=== PATIENT | female | born 1945 | race Caucasian/White ===

== ENCOUNTER 2016-08-30 03:14 | Inpatient (IN) | payer MEDICARE, MEDICAID ==
[2016-08-30] MEDS ORDERED: Sodium Chloride 0.9% 1,000 ML IV ONE (03:56)
--- NOTE | 2016-08-30 03:58 | ED Physician Chart ---
Chief Complaint/HPI - Patient Information Date Seen:: 08/30/16 Time Seen:: 03:30 Chief Complaint:: vomiting History of Present Illness:: patient vomited once at SNF and sent here for evaluation. Allergies:: Allergies Allergy/AdvReac Type Severity Reaction Status Date / Time ampicillin Allergy Verified 08/30/16 03:29 metronidazole Allergy Verified 08/30/16 03:29 Penicillins Allergy Verified 08/30/16 03:29 Sulfa (Sulfonamide Allergy Verified 08/30/16 03:29 Antibiotics) Vitals:: Vital Signs - 8 hr 08/30/16 03:20 Temp 97.9 F HR 86 RR 18 BP 154/71 O2 Sat % 97 Historian:: Patient Review:: Nurse's Note Reviewed, Transfer documents Reviewed Review of Systems - Review of Systems General/Constitutional: No fever Skin: No skin lesions Head: No headache Eyes: No loss of vision ENT: No earache Neck: No neck pain Cardio Vascular: No chest pain Pulmonary: No SOB GI: Vomiting, No diarrhea G/U: No dysuria Musculoskeletal: No bone or joint pain Endocrine: No polyuria Psychiatric: Prior psych history Hematopoietic: No bruising Allergic/Immuno: No urticaria Neurological: No syncope, No focal symptoms Past Medical History - Past Medical History Past Medical History: HTN, Asthma/COPD, Dyslipidemia, Thyroid disorder, Other ( hypercholesterolemia; hypothyroidism; anemia; schizophrenia; anxiety) Family History: Other (unavailable) Social History: Care Facility Surgical History: other Psychiatricy History: Schizophrenia, Other (anxiety) Medication: Reviewed (anxiety) Family Medical History - Family Member Mother History Unknown: Yes Ethnicity: Non- Physical Exam - Physical Examination General/Constitutional: Well-developed, well-nourished, Alert Other Gen/Cons comments:: angrly, profane language Head: Atraumatic Eyes: Lids, conjuctiva normal Skin: Nl inspection ENMT: External ears, nose nl Other ENMT comments:: edentulous Neck: No nuchal rigidity Respiratory: Nl effort/Exclusion, Clear to Auscultation Cardio Vascular: RRR GI: No tenderness/rebounding/guarding, No organomegaly, No hernia, Normal BS's, Nondistended, No mass/bruits, No McBurney tenderness : No CVA tenderness Extremities: Normal digits & nails Neuro/Psych: No focal deficits Misc: Normal back Assessment - Assessment General Assessment: at 0610 patient's abdomen was soft without guarding; bowel sounds present. Per Dr. Dwyer patient had coffee-grouind emesis ED Septic Shock - . Is Septic Shock (SBP<90, OR Lactate>4 mmol\L) present?: No - <6hrs of presentation: Vital Signs: Vital Signs - 8 hr 08/30/16 03:20 Temp 97.9 F HR 86 RR 18 BP 154/71 O2 Sat % 97 Reassessment (Disposition) - Reassessment Reassessment:: no vomiting while in the ED Reassessment Condition:: Improved - Diagnosis Diagnosis:: upper GI bleeding - Patient Disposition Spoke to:: Cheng Dwyer Admitting Medical Physician:: Cheng Dwyer Condition at Disposition:: Stable, Improved
[2016-08-30 06:29] LABS: % BASOPHILS 0.7 % (0.0-2.0); % EOSINOPHILS 1.3 % (0.0-5.0); % LYMPHOCYTES 39.3 % (20.0-50.0); % MONOCYTES 8.9 % (2.0-10.0); % NEUTROPHILS 49.8 % (40.0-80.0); MEAN CELL VOLUME 87.9 fl (81-100); MEAN CORPUSCULAR HEMOGLOBIN 29.5 pg (27.0-31.0); MEAN CORPUSCULAR HGB CONC 33.6 pg (28.0-36.0); MEAN PLATELET VOLUME 8.8 fl; NEUTROPHILE ABSOLUTE 1.8 Th/cmm (1.8-8.0); RED BLOOD COUNT 3.86 Mil/cmm (3.80-5.20); RED CELL DISTRIBUTION WIDTH 14.9 % (11.5-20.0); WHITE BLOOD COUNT 3.4 Th/cmm (4.8-10.8)
[2016-08-30 06:32] LABS: HEMATOCRIT 33.9 % (35.0-45.0); HEMOGLOBIN 11.4 gm/dL (11.7-16.1)
[2016-08-30 06:33] LABS: PLATELET COUNT 174 Th/cmm (150-400)
[2016-08-30 06:49] LABS: ANION GAP 7.1 (7.0-16.0); BUN - UREA NITROGEN 39 mg/dL (7-25); BUN/CREATININE RATIO 32.5; CALCIUM SERUM 9.9 mg/dL (8.6-10.3); CARBON DIOXIDE 24.8 mEq/L (21.0-31.0); CHLORIDE 107 mEq/L (98-107); CREATININE - SERUM 1.2 mg/dL (0.6-1.2); GLUCOSE 74 mg/dL (70-105); LIPASE 17 U/L (11-82); POTASSIUM SERUM 4.9 mEq/L (3.5-5.1); SODIUM SERUM 134 mEq/L (136-145)
[2016-08-30 07:15] LABS: PROTHROMBIN TIME (TEST) 9.9 SECONDS (9.5-11.5)
--- NOTE | 2016-08-30 20:58 | History & Physical ---
HISTORY OF PRESENT ILLNESS: This patient is well known to me. [facility]. The patient vomited coffee ground emesis, so she was admitted. The patient is known to have history of psychosis, history of anemia in the past, history of GI bleeding in the past, history of COPD, history of hypertension, history of thyroid disorder, history of hypothyroidism and anxiety. The patient was seen in the ER and was admitted. REVIEW OF SYSTEMS: Difficult to obtain. PAST MEDICAL HISTORY: As enumerated above, history of hypertension, COPD, hyperlipidemia, thyroid disorder, high cholesterol, hypothyroidism, anemia, schizophrenia and anxiety. PHYSICAL EXAMINATION: GENERAL: The patient is alert, oriented, elderly female. VITAL SIGNS: As noted. HEAD: Normal. ENT: Normal. LUNGS: Bilaterally clear. CARDIOVASCULAR SYSTEM: S1, S2 heard. ABDOMEN: Soft. Bowel sounds are heard. CENTRAL NERVOUS SYSTEM: Grossly normal. DIAGNOSES: Upper gastrointestinal bleeding. rule out anemia, history of hypertension, history of chronic obstructive pulmonary disease, history of asthma, history of psychosis. PLAN: The patient is being admitted. I will go ahead and call the GI doctor for a GI workup and also psych doctor and I will follow the patient. JOB# [id number]
[2016-08-30] MEDS ORDERED: D5-0.45NS 1,000 ML IV ONE (21:20)
--- NOTE | 2016-08-30 21:30 | Admit Criteria Form ---
Admit Criteria Forms - Admit Criteria Diagnosis: GASTROINTESTINAL BLEEDING, UPPER Clinical Indications for Admission to Inpatient Care ( Place 'X' for any and all applicable criteria): Admission is indicated for ANY ONE of the following(1)(2)(3)(4)(5)(6): [ ]I. Active bleeding (eg, fresh voluminous blood in emesis or nasogastric aspirate) [ ]II. Associated conditions requiring hospitalization (eg, perforation, obstruction from ulcer) [ X]III. Inpatient admission required rather than observation care (Also use Gastrointestinal Bleeding, Upper: Observation Care as appropriate) because of ANY ONE of the following: [ ]a) Hemodynamic instability that is severe or persistent [ ]b) Anemia requiring inpatient admission as indicated by ALL of the following: [ ]1) Presence of significant clinical finding indicated by ANY ONE of the following: [ ]A. Tachycardia for age [ ]B. Orthostatic vital sign changes [ ]C. Cognitive impairment [ ]D. Heart failure [ ]E. Chest pain [ ]F. Exertional dyspnea [ ]G. Other findings suggesting inadequate perfusion (eg, peripheral or myocardial ischemia, end organ dysfunction) [ ]2) Initial (eg, emergency department, observation care) treatment with transfusion or volume replacement is judged inappropriate (due to severity of the finding) or has been ineffective [ ]c) Severe pain requiring acute inpatient management [ ]d) High-risk low platelet count [ ]e) IV fluid to replace significant ongoing losses (greater than 3 L/m2 per day) [ ]f) Immediate inpatient surgery [X ]g) Other condition, treatment or monitoring requiring inpatient admission [ ]IV. Severe liver disease (eg, cirrhosis) [ ]V. Significant active comorbid disease [ ]. Anticoagulation therapy [ ]VII. High-risk endoscopic features (arterial bleeding, adherent clot, nonbleeding visible vessel, varices, flat red spots, ulcer size greater than 2 cm, or portal hypertensive gastropathy) [ ]VIII. Previous aortic graft placement or known aortic aneurysm [ ]IX. Coagulopathy [ ]X. Syncope Extended stay beyond goal length of stay may be needed for(1)(2): [ ]a) Emergency surgery [ ]b) Varices [ ]c) Coagulation abnormalities [ ]d) Recurrent, obscure, or persistent bleeding or continued Hemodynamic instability [ ]e) Associated conditions requiring surgery (eg, perforated gastric ulcer, gastric outlet obstruction) [ ]f) Active comorbidities (eg, renal insufficiency, heart failure, pre- existing liver disease) The original [email or web address] content created by [facility] [email or web address] has been revised. The portions of the content which have been revised are identified through the use of italic text or in bold, and [facility] has neither reviewed nor approved the modified material. All other unmodified content is copyright [facility] [employer]. Please see references footnoted in the original [facility] [email or web address] edition 2016
[2016-08-30] MEDS ORDERED: Morphine Sulfate 2 mg/mL 1mL Syr IVP PRN ×2 (21:35→21:36)
[2016-08-31] MEDS ORDERED: Diatrizoate Meglumine/Diatri 30 mL Sol PO ONE (09:00)
--- NOTE | 2016-08-31 10:04 | General Progress Note ---
Objective - Results Result Diagrams: 08/30/16 06:15 08/30/16 06:15 Recent Labs: Laboratory Last Values WBC 3.4 Th/cmm (4.8-10.8) L 08/30/16 06:15 RBC 3.86 Mil/cmm (3.80-5.20) 08/30/16 06:15 Hgb 11.4 gm/dL (11.7-16.1) L D 08/30/16 06:15 Hct 33.9 % (35.0-45.0) L D 08/30/16 06:15 MCV 87.9 fl (81-100) 08/30/16 06:15 MCH 29.5 pg (27.0-31.0) 08/30/16 06:15 MCHC Differential 33.6 pg (28.0-36.0) 08/30/16 06:15 RDW 14.9 % (11.5-20.0) 08/30/16 06:15 Plt Count 174 Th/cmm (150-400) D 08/30/16 06:15 MPV 8.8 fl 08/30/16 06:15 Neutrophils % 49.8 % (40.0-80.0) 08/30/16 06:15 Lymphocytes % 39.3 % (20.0-50.0) 08/30/16 06:15 Monocytes % 8.9 % (2.0-10.0) 08/30/16 06:15 Eosinophils % 1.3 % (0.0-5.0) 08/30/16 06:15 Basophils % 0.7 % (0.0-2.0) 08/30/16 06:15 PT 9.9 SECONDS (9.5-11.5) 08/30/16 06:15 INR 1.00 (0.5-1.4) 08/30/16 06:15 PTT (Actin FS) 28.8 SECONDS (26.0-38.0) 08/30/16 06:15 Sodium 134 mEq/L (136-145) L 08/30/16 06:15 Potassium 4.9 mEq/L (3.5-5.1) 08/30/16 06:15 Chloride 107 mEq/L (98-107) 08/30/16 06:15 Carbon Dioxide 24.8 mEq/L (21.0-31.0) 08/30/16 06:15 Anion Gap 7.1 (7.0-16.0) 08/30/16 06:15 BUN 39 mg/dL (7-25) H 08/30/16 06:15 Creatinine 1.2 mg/dL (0.6-1.2) 08/30/16 06:15 Est GFR ( Amer) TNP 08/30/16 06:15 Est GFR (Non-Af Amer) TNP 08/30/16 06:15 BUN/Creatinine Ratio 32.5 08/30/16 06:15 Glucose 74 mg/dL (70-105) 08/30/16 06:15 Calcium 9.9 mg/dL (8.6-10.3) 08/30/16 06:15 Lipase 17 U/L (11-82) 08/30/16 06:15 - Physical Exam Vitals and I&O: Vital Signs Temp 97.7 F 08/31/16 08:26 Pulse 64 08/31/16 08:26 Resp 18 08/31/16 08:26 BP 147/78 08/31/16 08:26 Pulse Ox 95 08/31/16 08:26 Intake & Output 08/30/16 08/31/16 08/31/16 18:59 06:59 18:59 Intake Total 240 Balance 240 Intake: Oral 240 Other: # Voids 2 # Bowel Movements 0 Active Medications: Current Medications Dextrose/Sodium Chloride (D5-0.45ns) 1,000 mls @ 50 mls/hr IV .Q20H ONE Stop: 08/31/16 17:19 Morphine Sulfate (Morphine) 1 mg IVP Q4HR PRN PRN Reason: Moderate Pain Stop: 10/29/16 21:34 Morphine Sulfate (Morphine) 2 mg IVP Q4HR PRN PRN Reason: Severe Pain Stop: 10/29/16 21:35 Assessment/Plan - Problem List Patient Problems: All Active Problems Skin ulcer (Acute) L98.311
--- NOTE | 2016-09-01 08:42 | General Progress Note ---
Subjective - Review of Systems Service Date: 09/01/16 Objective - Results Result Diagrams: 08/30/16 06:15 08/30/16 06:15 Recent Labs: Laboratory Last Values WBC 3.4 Th/cmm (4.8-10.8) L 08/30/16 06:15 RBC 3.86 Mil/cmm (3.80-5.20) 08/30/16 06:15 Hgb 11.4 gm/dL (11.7-16.1) L D 08/30/16 06:15 Hct 33.9 % (35.0-45.0) L D 08/30/16 06:15 MCV 87.9 fl (81-100) 08/30/16 06:15 MCH 29.5 pg (27.0-31.0) 08/30/16 06:15 MCHC Differential 33.6 pg (28.0-36.0) 08/30/16 06:15 RDW 14.9 % (11.5-20.0) 08/30/16 06:15 Plt Count 174 Th/cmm (150-400) D 08/30/16 06:15 MPV 8.8 fl 08/30/16 06:15 Neutrophils % 49.8 % (40.0-80.0) 08/30/16 06:15 Lymphocytes % 39.3 % (20.0-50.0) 08/30/16 06:15 Monocytes % 8.9 % (2.0-10.0) 08/30/16 06:15 Eosinophils % 1.3 % (0.0-5.0) 08/30/16 06:15 Basophils % 0.7 % (0.0-2.0) 08/30/16 06:15 PT 9.9 SECONDS (9.5-11.5) 08/30/16 06:15 INR 1.00 (0.5-1.4) 08/30/16 06:15 PTT (Actin FS) 28.8 SECONDS (26.0-38.0) 08/30/16 06:15 Sodium 134 mEq/L (136-145) L 08/30/16 06:15 Potassium 4.9 mEq/L (3.5-5.1) 08/30/16 06:15 Chloride 107 mEq/L (98-107) 08/30/16 06:15 Carbon Dioxide 24.8 mEq/L (21.0-31.0) 08/30/16 06:15 Anion Gap 7.1 (7.0-16.0) 08/30/16 06:15 BUN 39 mg/dL (7-25) H 08/30/16 06:15 Creatinine 1.2 mg/dL (0.6-1.2) 08/30/16 06:15 Est GFR ( Amer) TNP 08/30/16 06:15 Est GFR (Non-Af Amer) TNP 08/30/16 06:15 BUN/Creatinine Ratio 32.5 08/30/16 06:15 Glucose 74 mg/dL (70-105) 08/30/16 06:15 Calcium 9.9 mg/dL (8.6-10.3) 08/30/16 06:15 Lipase 17 U/L (11-82) 08/30/16 06:15 - Physical Exam Vitals and I&O: Vital Signs Temp 97.6 F 09/01/16 07:49 Pulse 79 09/01/16 07:49 Resp 18 09/01/16 07:49 BP 150/77 09/01/16 07:49 Pulse Ox 97 09/01/16 07:49 Intake & Output 08/31/16 09/01/16 09/01/16 18:59 06:59 18:59 Intake Total 1000 200 Balance 1000 200 Intake: Oral 1000 200 Other: # Voids 3 2 Active Medications: Current Medications Morphine Sulfate (Morphine) 1 mg IVP Q4HR PRN PRN Reason: Moderate Pain Stop: 10/29/16 21:34 Morphine Sulfate (Morphine) 2 mg IVP Q4HR PRN PRN Reason: Severe Pain Stop: 10/29/16 21:35 Pantoprazole Sodium (Protonix) 40 mg IVP BID [facility] Stop: 10/31/16 08:59 General: No acute distress, Mild distress, Moderate distress HEENT: Atraumatic Neck: Supple Cardiovascular: Regular rate Lungs: Clear to auscultation Abdomen: Bowel sounds Extremities: Clubbing Neurological: Normal gait Assessment/Plan - Problem List Patient Problems: All Active Problems Skin ulcer (Acute) L98.499 - Plan Plan: cpm
--- NOTE | 2016-09-01 10:13 | Diagnostic Imaging Report ---
CT scan abdomen and pelvis without intravenous contrast HISTORY: Nausea/vomiting Total DLP equals 375 CTDI equals 7.5 Axial sections were obtained from the xiphoid process down to the pubic symphysis. The liver exhibits a homogeneous parenchyma. No focal lesions. The spleen appears normal. There is a large retrocardiac hiatal hernia with the gastric fundus above the diaphragm. Severe diffuse extensive athero-Scottie vascular calcification noted through the abdominal aorta and major branches. No focal renal lesions. Focal cortical irregularity noted along the lateral margin of the left kidney suggesting scarring. No hydronephrosis. The exam of the pelvis demonstrates preservation of normal fat planes. Evaluation is limited due to artifact related to left hip arthroplasty. There is mild to moderately dilated stool-filled large bowel along with a markedly distended air-filled rectum. Findings suggest changes of constipation. IMPRESSION: 1. Large retrocardiac hiatal hernia with the gastric fundus above the diaphragm 2. Dilated stool-filled large bowel suggesting changes of constipation 3. Extensive atherosclerotic vascular changes
--- NOTE | 2016-09-01 22:53 | Consultation ---
REFERRING PHYSICIAN: Dr. Dwyer. REASON FOR CONSULTATION: Nausea, vomiting, possible coffee-ground emesis. HISTORY OF PRESENT ILLNESS: This is a 70-year-old female who was brought into the hospital because of possible coffee-ground emesis, noted that a [facility] patient is, otherwise, a poor historian, unable to give any meaningful history. PAST MEDICAL HISTORY: Psychosis, anemia, COPD, hypertension, thyroid disorder, anxiety. PAST SURGICAL HISTORY: None to abdomen____. FAMILY HISTORY: Noncontributory. SOCIAL HISTORY: Resident of skilled facility. ALLERGIES: AMPICILLIN, FLAGYL, PENICILLIN AND SULFA. CURRENT MEDICATIONS: Morphine. REVIEW OF SYSTEMS: Ten-point review of systems was unobtainable. PHYSICAL EXAMINATION: VITAL SIGNS: Temperature 97.6, breathing 18, pulse of 79, blood pressure 150/77, satting 97%. GENERAL: In no apparent distress. EYES: Anicteric, normal conjunctivae. HEENT: Normocephalic, atraumatic. Moist mucous membranes. NECK: Soft, supple. CHEST: Clear effort. CARDIOVASCULAR: Regular rate and rhythm. ABDOMEN: Soft, nontender, nondistended. SKIN: Warm, dry. EXTREMITIES: Revealed no cyanosis. PSYCHOLOGIC: Alert and oriented x3. LABORATORY DATA: Show a white count of 3.4, hemoglobin 11.4____, platelets of 174. INR is 1. Lipase is ____. IMPRESSION: This is a 70-year-old female with nausea, vomiting, possible coffee-ground emesis, has mild anemia ____ GI bleeding at this time. PLAN: 1. Consider EGD. 2. Provide the patient with Protonix. 3. Consider CT abdomen and pelvis. 4. Check LFTs. Thank you for allowing me to participate. Please call me if any questions. JOB# [id number]
[2016-09-02] MEDS: D5-0.45NS 1,000 ML IV SCH ×2 (12:25→12:26)
--- NOTE | 2016-09-02 15:05 | General Progress Note ---
Objective - Results Result Diagrams: 08/30/16 06:15 08/30/16 06:15 Recent Labs: Laboratory Last Values WBC 3.4 Th/cmm (4.8-10.8) L 08/30/16 06:15 RBC 3.86 Mil/cmm (3.80-5.20) 08/30/16 06:15 Hgb 11.4 gm/dL (11.7-16.1) L D 08/30/16 06:15 Hct 33.9 % (35.0-45.0) L D 08/30/16 06:15 MCV 87.9 fl (81-100) 08/30/16 06:15 MCH 29.5 pg (27.0-31.0) 08/30/16 06:15 MCHC Differential 33.6 pg (28.0-36.0) 08/30/16 06:15 RDW 14.9 % (11.5-20.0) 08/30/16 06:15 Plt Count 174 Th/cmm (150-400) D 08/30/16 06:15 MPV 8.8 fl 08/30/16 06:15 Neutrophils % 49.8 % (40.0-80.0) 08/30/16 06:15 Lymphocytes % 39.3 % (20.0-50.0) 08/30/16 06:15 Monocytes % 8.9 % (2.0-10.0) 08/30/16 06:15 Eosinophils % 1.3 % (0.0-5.0) 08/30/16 06:15 Basophils % 0.7 % (0.0-2.0) 08/30/16 06:15 PT 9.9 SECONDS (9.5-11.5) 08/30/16 06:15 INR 1.00 (0.5-1.4) 08/30/16 06:15 PTT (Actin FS) 28.8 SECONDS (26.0-38.0) 08/30/16 06:15 Sodium 134 mEq/L (136-145) L 08/30/16 06:15 Potassium 4.9 mEq/L (3.5-5.1) 08/30/16 06:15 Chloride 107 mEq/L (98-107) 08/30/16 06:15 Carbon Dioxide 24.8 mEq/L (21.0-31.0) 08/30/16 06:15 Anion Gap 7.1 (7.0-16.0) 08/30/16 06:15 BUN 39 mg/dL (7-25) H 08/30/16 06:15 Creatinine 1.2 mg/dL (0.6-1.2) 08/30/16 06:15 Est GFR ( Amer) TNP 08/30/16 06:15 Est GFR (Non-Af Amer) TNP 08/30/16 06:15 BUN/Creatinine Ratio 32.5 08/30/16 06:15 Glucose 74 mg/dL (70-105) 08/30/16 06:15 Calcium 9.9 mg/dL (8.6-10.3) 08/30/16 06:15 Lipase 17 U/L (11-82) 08/30/16 06:15 - Physical Exam Vitals and I&O: Vital Signs Temp 97.4 F 09/02/16 04:00 Pulse 89 09/02/16 04:00 Resp 19 09/02/16 04:00 BP 131/78 09/02/16 04:00 Pulse Ox 96 09/02/16 04:00 Intake & Output 09/01/16 09/02/16 09/02/16 18:59 06:59 18:59 Other: # Voids 2 2 Active Medications: Current Medications Dextrose/Sodium Chloride (D5-0.45ns) 1,000 mls @ 75 mls/hr IV .[id number] [facility] Stop: 10/31/16 22:59 Last Admin: 09/02/16 12:26 Dose: Not Given Morphine Sulfate (Morphine) 1 mg IVP Q4HR PRN PRN Reason: Moderate Pain Stop: 10/29/16 21:34 Last Admin: 09/01/16 12:51 Dose: 1 mg Morphine Sulfate (Morphine) 2 mg IVP Q4HR PRN PRN Reason: Severe Pain Stop: 10/29/16 21:35 Pantoprazole Sodium (Protonix) 40 mg IVP BID [facility] Stop: 10/31/16 08:59 Last Admin: 09/02/16 12:26 Dose: Not Given Assessment/Plan - Problem List Patient Problems: All Active Problems Skin ulcer (Acute) L98.499 - Plan Plan: cpm
--- NOTE | 2016-09-03 09:07 | General Progress Note ---
Objective - Results Result Diagrams: 08/30/16 06:15 08/30/16 06:15 Recent Labs: Laboratory Last Values WBC 3.4 Th/cmm (4.8-10.8) L 08/30/16 06:15 RBC 3.86 Mil/cmm (3.80-5.20) 08/30/16 06:15 Hgb 11.4 gm/dL (11.7-16.1) L D 08/30/16 06:15 Hct 33.9 % (35.0-45.0) L D 08/30/16 06:15 MCV 87.9 fl (81-100) 08/30/16 06:15 MCH 29.5 pg (27.0-31.0) 08/30/16 06:15 MCHC Differential 33.6 pg (28.0-36.0) 08/30/16 06:15 RDW 14.9 % (11.5-20.0) 08/30/16 06:15 Plt Count 174 Th/cmm (150-400) D 08/30/16 06:15 MPV 8.8 fl 08/30/16 06:15 Neutrophils % 49.8 % (40.0-80.0) 08/30/16 06:15 Lymphocytes % 39.3 % (20.0-50.0) 08/30/16 06:15 Monocytes % 8.9 % (2.0-10.0) 08/30/16 06:15 Eosinophils % 1.3 % (0.0-5.0) 08/30/16 06:15 Basophils % 0.7 % (0.0-2.0) 08/30/16 06:15 PT 9.9 SECONDS (9.5-11.5) 08/30/16 06:15 INR 1.00 (0.5-1.4) 08/30/16 06:15 PTT (Actin FS) 28.8 SECONDS (26.0-38.0) 08/30/16 06:15 Sodium 134 mEq/L (136-145) L 08/30/16 06:15 Potassium 4.9 mEq/L (3.5-5.1) 08/30/16 06:15 Chloride 107 mEq/L (98-107) 08/30/16 06:15 Carbon Dioxide 24.8 mEq/L (21.0-31.0) 08/30/16 06:15 Anion Gap 7.1 (7.0-16.0) 08/30/16 06:15 BUN 39 mg/dL (7-25) H 08/30/16 06:15 Creatinine 1.2 mg/dL (0.6-1.2) 08/30/16 06:15 Est GFR ( Amer) TNP 08/30/16 06:15 Est GFR (Non-Af Amer) TNP 08/30/16 06:15 BUN/Creatinine Ratio 32.5 08/30/16 06:15 Glucose 74 mg/dL (70-105) 08/30/16 06:15 Calcium 9.9 mg/dL (8.6-10.3) 08/30/16 06:15 Lipase 17 U/L (11-82) 08/30/16 06:15 - Physical Exam Vitals and I&O: Vital Signs Temp 98.2 F 09/03/16 04:00 Pulse 82 09/03/16 04:00 Resp 18 09/03/16 08:00 BP 144/80 09/03/16 04:00 Pulse Ox 97 09/03/16 04:00 Intake & Output 09/02/16 09/03/16 09/03/16 18:59 06:59 18:59 Intake Total 450 120 Balance 450 120 Intake: Oral 450 120 Other: # Voids 2 2 # Bowel Movements 1 0 Active Medications: Current Medications Dextrose/Sodium Chloride (D5-0.45ns) 1,000 mls @ 75 mls/hr IV .[id number] [facility] Stop: 10/31/16 22:59 Last Admin: 09/02/16 12:26 Dose: Not Given Morphine Sulfate (Morphine) 1 mg IVP Q4HR PRN PRN Reason: Moderate Pain Stop: 10/29/16 21:34 Last Admin: 09/01/16 12:51 Dose: 1 mg Morphine Sulfate (Morphine) 2 mg IVP Q4HR PRN PRN Reason: Severe Pain Stop: 10/29/16 21:35 Pantoprazole Sodium (Protonix) 40 mg IVP BID [facility] Stop: 10/31/16 08:59 Last Admin: 09/02/16 12:26 Dose: Not Given Assessment/Plan - Problem List Patient Problems: All Active Problems Skin ulcer (Acute) L94.252 - Plan Plan: cpm
--- NOTE | 2016-09-03 10:54 | Diagnostic Imaging Report ---
Upper GI HISTORY: Gastrointestinal bleeding exam is limited the overhead radiographs due to patient immobility. The exam of the stomach demonstrates relatively large hiatal hernia with the gastric fundus above the diaphragm. Evaluation of the soft tissues not possible this time. No other focal gastric lesions are seen. Limited delineation of the duodenal bulb with no obvious abnormalities. Significant, no obvious ulcers. The remainder of the duodenum appears normal. IMPRESSION: 1. Limited exam 2. Large hiatal hernia with the gastric fundus above the diaphragm 2. No other obvious abnormalities
[2016-09-03] MEDS ORDERED: Influenza Vaccine 0.5 mL Syr IM ONE (13:00)
--- NOTE | 2016-09-10 10:57 | Discharge Summary ---
HISTORY AND HOSPITAL COURSE: The patient was admitted through the Emergency Room due to hemetemesis. The patient underwent upper GI series and diagnosed with an abdominal hernia. PHYSICAL EXAMINATION: GENERAL: The patient is awake, alert, oriented with episodes of confusion, ambulatory. HEAD: Atraumatic and normocephalic. NECK: Negative for JVD. No nuchal rigidity. EYES: Bilateral PERRL. Clear conjunctivae. CARDIOVASCULAR: S1 and S2, regular rate and rhythm. PULMONARY: Clear to auscultation. GASTROINTESTINAL: Soft, nontender, positive bowel sounds. GENITOURINARY: No CVA tenderness. MUSCULOSKELETAL: No edema. No weakness. FINAL DIAGNOSES: The patient will be discharged back to intermediate with the final diagnoses of abdominal hernia and gastroesophageal reflux disease. JOB# [id number]
== END 2016-09-03 14:40 | DRG 378 ==
LOC: ER 03:14 → MSI 17:30
PROVIDERS: ADMIT Internal Medicine; ATTEND Internal Medicine
DX: K92.2 Gastrointestinal hemorrhage, unspecified (principal); E87.1 Hypo-osmolality and hyponatremia; J44.9 Chronic obstructive pulmonary disease, unspecified; I10 Essential (primary) hypertension; F29 Unspecified psychosis not due to a substance or known physiological condition; J45.909 Unspecified asthma, uncomplicated; E03.9 Hypothyroidism, unspecified; L98.499 Non-pressure chronic ulcer of skin of other sites with unspecified severity; E78.5 Hyperlipidemia, unspecified; F41.9 Anxiety disorder, unspecified; F20.9 Schizophrenia, unspecified; K44.9 Diaphragmatic hernia without obstruction or gangrene; Z88.8 Allergy status to other drugs, medicaments and biological substances; Z88.0 Allergy status to penicillin; Z88.1 Allergy status to other antibiotic agents; Z88.2 Allergy status to sulfonamides
CPT/HCPCS: 36415-UA; 80048-TC; 83690-TC; 85025-TC; 85610-TC; 85730-TC; 96374; C9113; J2060; J2270; J2405; J7030; X3401; Z7610

== ENCOUNTER 2016-11-28 16:38 | Inpatient (IN) | payer MEDICARE, MEDICAID ==
--- NOTE | 2016-11-28 17:55 | ED Physician Chart ---
Chief Complaint/HPI - Patient Information Date Seen:: 11/28/16 Time Seen:: 17:40 Chief Complaint:: generalized weakness History of Present Illness:: Patient was sent from the longterm facility for generalized weakness and congestion. No further history is available. Patient is not able to provide any history. Allergies:: Allergies Allergy/AdvReac Type Severity Reaction Status Date / Time ampicillin Allergy Verified 11/28/16 17:18 metronidazole Allergy Verified 11/28/16 17:18 Penicillins Allergy Verified 11/28/16 17:18 Sulfa (Sulfonamide Allergy Verified 11/28/16 17:18 Antibiotics) Vitals:: Vital Signs - 8 hr 11/28/16 16:45 Temp 97.5 F HR 78 RR 18 BP 125/59 O2 Sat % 97 Review:: Transfer documents Reviewed Review of Systems - Review of Systems General/Constitutional: No fever, No chills, Weakness Skin: No skin lesions Head: No headache Eyes: No loss of vision ENT: No earache Neck: No neck pain Cardio Vascular: No chest pain Pulmonary: No SOB GI: No nausea, No vomiting G/U: No dysuria Musculoskeletal: No bone or joint pain Endocrine: No polyuria Psychiatric: No prior psych history Hematopoietic: No bruising Allergic/Immuno: No urticaria Neurological: No syncope Past Medical History - Past Medical History Past Medical History: PUD/GERD, Other (hypothyroidism; polyneuropathy; seizures ; acute renal failure; nephritis; chronic obstructive pyelonephritis; status post gastrointestinal intestinal hemorrhage; metabolic encephalopathy; pancytope protein calorie malnutrition; hearing impaired) Family History: Other (unavailable) Social History: Care Facility Surgical History: other (unavailable) Psychiatricy History: None Medication: Reviewed Family Medical History - Family Member Mother History Unknown: Yes Ethnicity: Non- Physical Exam - Physical Examination General/Constitutional: No distress Other Gen/Cons comments:: Chronically ill-appearing; pale; in no acute distress Head: Atraumatic Eyes: Lids, conjuctiva normal, PERRL Skin: Nl inspection, No rash, No skin lesions, No ecchymosis ENMT: External ears, nose nl Other ENMT comments:: Edentulous Neck: No nuchal rigidity Respiratory: Nl effort/Exclusion, Clear to Auscultation, No Wheeze/Rhonchi/Rales Cardio Vascular: RRR GI: No tenderness/rebounding/guarding, No organomegaly, No hernia, Normal BS's, Nondistended, No mass/bruits : No CVA tenderness Extremities: Normal digits & nails Neuro/Psych: No focal deficits Labs/Radiology/EKG Results - Lab Results Comments:: Laboratory Results - last 24 hr 11/28/16 11/28/16 11/28/16 21:14 21:14 21:14 WBC 5.3 D RBC 3.23 L Hgb 10.2 L Hct 29.9 L D MCV 92.6 MCH 31.6 H MCHC Differential 34.1 RDW 17.7 Plt Count 123 L D MPV 6.9 Neutrophils % 59.0 Lymphocytes % 33.6 Monocytes % 7.3 Eosinophils % 0.0 Basophils % 0.1 Sodium 133 L Potassium 6.1 H* Chloride 107 Carbon Dioxide 19.4 L Anion Gap 12.7 BUN 54 H Creatinine 1.7 H Est GFR ( Amer) TNP Est GFR (Non-Af Amer) TNP BUN/Creatinine Ratio 31.8 Glucose 71 Calcium 10.2 Valproic Acid 69.2 On weight her on telemetry and potassium here and I wrote is better on telemetry reported. - Radiology Results Results: CXR: calcification of the aortic arch; otherwise CXR is normal - EKG Interpretations Rate & Rhythm: normal sinus rhythm at a rate of 83 Smith: normal axis Comments:: old septal myocardial infarction ED Septic Shock - . Is Septic Shock (SBP<90, OR Lactate>4 mmol\L) present?: No - <6hrs of presentation: Vital Signs: Vital Signs - 8 hr 11/28/16 16:45 Temp 97.5 F HR 78 RR 18 BP 125/59 O2 Sat % 97 Reassessment (Disposition) - Reassessment Reassessment Condition:: Unchanged - Diagnosis Diagnosis:: anemia; renal insufficiency; hyperkalemia - Aftercare/Follow up Instructions Aftercare/Follow-Up Instructions:: Refer to Discharge Instructions - Patient Disposition Admitted to:: Telemetry Spoke to:: Cheng Dwyer Admitting Medical Physician:: Cheng Dwyer Condition at Disposition:: Stable, Unchanged, Improved
[2016-11-28 21:24] LABS: % BASOPHILS 0.1 % (0.0-2.0); % LYMPHOCYTES 33.6 % (20.0-50.0); % MONOCYTES 7.3 % (2.0-10.0); HEMOGLOBIN 10.2 gm/dL (11.7-16.1); MEAN CELL VOLUME 92.6 fl (81-100); MEAN CORPUSCULAR HEMOGLOBIN 31.6 pg (27.0-31.0); MEAN CORPUSCULAR HGB CONC 34.1 pg (28.0-36.0); MEAN PLATELET VOLUME 6.9 fl; NEUTROPHILE ABSOLUTE 3.1 Th/cmm (1.8-8.0); RED BLOOD COUNT 3.23 Mil/cmm (3.80-5.20); RED CELL DISTRIBUTION WIDTH 17.7 % (11.5-20.0)
[2016-11-28 21:37] LABS: ANION GAP 12.7 (7.0-16.0); BUN - UREA NITROGEN 54 mg/dL (7-25); BUN/CREATININE RATIO 31.8; CALCIUM SERUM 10.2 mg/dL (8.6-10.3); CARBON DIOXIDE 19.4 mEq/L (21.0-31.0); CHLORIDE 107 mEq/L (98-107); CREATININE - SERUM 1.7 mg/dL (0.6-1.2); GLUCOSE 71 mg/dL (70-105); SODIUM SERUM 133 mEq/L (136-145)
[2016-11-28 21:48] LABS: POTASSIUM SERUM 6.1 mEq/L (3.5-5.1)
[2016-11-28 22:19] LABS: WHITE BLOOD COUNT 5.3 Th/cmm (4.8-10.8)
[2016-11-28 22:20] LABS: HEMATOCRIT 29.9 % (35.0-45.0); PLATELET COUNT 123 Th/cmm (150-400)
[2016-11-28 22:27] LABS: INR 0.99 (0.5-1.4); PROTHROMBIN TIME (TEST) 10.3 SECONDS (9.5-11.5)
--- NOTE | 2016-11-29 09:22 | Diagnostic Imaging Report ---
Portable chest x-ray HISTORY: Shortness of breath The overall heart size is difficult to assess with portable technique in a poor inspiration. Accentuation of the interstitial lung markings. Findings may be chronic. No definite focal processes. Atherosclerotic calcification seen in the aorta. IMPRESSION: 1. No definite focal pulmonary processes 2. Generalized accentuation of the interstitial lung markings. The findings may be chronic 3. Atherosclerotic vascular changes
[2016-11-29 09:39] LABS: % EOSINOPHILS 0.1 % (0.0-5.0); % LYMPHOCYTES 28.6 % (20.0-50.0); % MONOCYTES 6.8 % (2.0-10.0); % NEUTROPHILS 64.5 % (40.0-80.0); HEMATOCRIT 27.1 % (35.0-45.0); HEMOGLOBIN 9.2 gm/dL (11.7-16.1); MEAN CORPUSCULAR HEMOGLOBIN 31.7 pg (27.0-31.0); MEAN CORPUSCULAR HGB CONC 34.1 pg (28.0-36.0); MEAN PLATELET VOLUME 7.2 fl; NEUTROPHILE ABSOLUTE 3.9 Th/cmm (1.8-8.0); PLATELET COUNT 133 Th/cmm (150-400); RED BLOOD COUNT 2.91 Mil/cmm (3.80-5.20); RED CELL DISTRIBUTION WIDTH 17.2 % (11.5-20.0)
[2016-11-29 09:59] LABS: ANION GAP 13.4 (7.0-16.0); BUN - UREA NITROGEN 54 mg/dL (7-25); BUN/CREATININE RATIO 31.8; CALCIUM SERUM 10.2 mg/dL (8.6-10.3); CARBON DIOXIDE 21.8 mEq/L (21.0-31.0); CHLORIDE 111 mEq/L (98-107); CREATININE - SERUM 1.7 mg/dL (0.6-1.2); GLUCOSE 121 mg/dL (70-105); POTASSIUM SERUM 4.2 mEq/L (3.5-5.1); SODIUM SERUM 142 mEq/L (136-145)
[2016-11-29] MEDS ORDERED: Albuterol/Ipratropium Neb 3 ML AERS HHN PRN (10:32)
[2016-11-29] MEDS ORDERED: Maalox 30 mL Cup PO PRN (10:32)
[2016-11-29] MEDS ORDERED: Hydrocodone/APAP 5mg/325mg Tab PO PRN (10:32)
[2016-11-29 13:30] LABS: URINE COLOR YELLOW
[2016-11-29 13:31] LABS: URINE BILIRUBIN NEGATIVE (NEGATIVE); URINE BLOOD LARGE (NEGATIVE); URINE GLUCOSE (UA) NEGATIVE (NEGATIVE); URINE KETONE NEGATIVE (NEGATIVE); URINE PH 5.5; URINE PROTEIN 100 mg/dL (NEGATIVE); URINE RBC 25-50 /hpf (0-5); URINE UROBILINOGEN 0.2 E.U./dL (0.2 - 1.0)
[2016-11-29 13:32] LABS: URINE BACTERIA MANY /hpf (NONE SEEN); URINE EPITHELIAL CELLS FEW /lpf (FEW); URINE WBC >100 /hpf (0-5)
[2016-11-29] MEDS ORDERED: Levofloxacin 500mg/100mL 500 MG/100 ML BAG IV ONE (14:00)
--- NOTE | 2016-11-29 14:24 | Admit Criteria Form ---
Admit Criteria Forms - Admit Criteria Diagnosis: ANEMIA, IRON DEFICIENCY OR UNSPECIFIED Clinical Indications for Inpatient Care (Place 'X' for any and all applicable criteria): Admission is indicated for ANY ONE of the following(1)(2)(3)(4)(5)(6)(7): [X] I. Inpatient admission required rather than observation care (Also use Anemia, Iron Deficiency or Unspecified: Observation Care guideline as appropriate) because of ANY ONE of the following: [] a) Hemodynamic instability that is severe or persistent [] b) Active bleeding that cannot be rapidly controlled [] c) CVS symptoms (i.e., dyspnea, chest pain, heart failure) that are severe or persistent [] d) Neurologic symptoms (i.e., cognitive impairment, recurrent syncope or near syncope) that are severe or persistent [] e) Cardiac arrhythmias of immediate concern [] f) Acute peripheral ischemia (e.g., pulseless, cool, mottled, or cyanotic extremity) [] g) High-risk low platelet count [] h) Acute renal failure [] i) Ongoing transfusion for blood loss (greater than 2 units) [] j) IV fluid to replace significant ongoing (eg, >24 hours) losses (> 3 L/m2 per day) [] k) Pulmonary artery catheter monitoring [] l) Supplemental oxygen or respiratory treatments for over 24 hours that are performable only in acute inpatient setting [] m) Immediate inpatient surgery [X] n) Other condition, treatment or monitoring requiring inpatient admission [] II Active massive hemorrhage [] III. Active hemolysis with rapidly progressive anemia [A](6) Extended stay beyond goal length of stay may be needed for (17)(18) []a) Diagnosed cause of anemia requiring longer hospitalization (eg, active GI bleeding, immune hemolysis requiring electrophoresis, complications of malignancy requiring acute care []b) Continued emergent anemia indicators (23) []c) Transfusion reactions []d) Associated leukopenia or thrombocytopenia needing inpatient care []e) Active comorbidities (eg, renal failure, heart failure) The original [employer] content created by [employer] has been revised. The portions of the content which have been revised are identified through the use of italic text or in bold. [employer] has neither reviewed nor approved the modified material. All other unmodified content is copyright [employer]. Please see references footnoted in the original [facility] edition 2016 Admit Criteria Met?: Yes
[2016-11-29] MEDS: Multivitamin Tab PO SCH (14:35)
[2016-11-29] MEDS: Ascorbic Acid/Vit B Complex Tab PO SCH (14:39)
[2016-11-29] MEDS: Ferrous Sulfate 325 MG TAB PO SCH (16:42)
--- NOTE | 2016-11-30 01:03 | History & Physical ---
ADMIT DATE: 11/29/2016 The patient came in with generalized weakness, was admitted for generalized weakness, possible UTI and psychosis. Difficult to obtain history. The patient is on multiple medications. See the reconciliation sheet. REVIEW OF SYSTEMS: Other than severe weakness and lower abdominal pain is negative. HISTORY OF PRESENT ILLNESS: The patient known to have history of peptic ulcer disease, hypothyroidism, polyneuropathy, history of seizures, history of renal failure, history of nephritis, history of COPD, history of GI bleeding in the past, history of metabolic encephalopathy, pancytopenia, currently malnutrition, and the patient is a poor historian. All the above history obtained through the old chart. PHYSICAL EXAMINATION: GENERAL: The patient is chronically ill appearing. The patient seems to be slightly weak. HEAD: Normal. ENT: Normal. LUNGS: Bilaterally decreased. CARDIOVASCULAR SYSTEM: S1 and S2 heard. ABDOMEN: Soft. EXTREMITIES: Revealed no edema. LABORATORY DATA: White count was 5.3, hemoglobin was low 10.2, and hematocrit was 29. Chest x-ray x-ray was negative and the patient's BUN and creatinine are high 54 and 1.7. DIAGNOSES: Acute anemia, acute renal failure, hyperkalemia, failure to thrive, severe malnutrition, history of depression, history of psychosis, history of gastrointestinal bleeding in the past, rule out gastrointestinal bleeding, history of peptic ulcer disease, history of chronic obstructive lung disease as well as pyelonephritis. PLAN: The patient is going to be worked up and I will give her some fluids. We will have Dr. Meehan see the patient. I will also have Dr. Cortes see the patient and I will follow the patient. JOB# [id number]
[2016-11-30] MEDS ORDERED: Non-Formulary Item 1 EA (Amino Acids/Protein Hydrolys [Pro-Stat Awc Liquid] 30 ML) PO SCH (09:00)
[2016-11-30] MEDS: Ascorbic Acid/Vit B Complex Tab PO SCH (09:35)
[2016-11-30] MEDS: Ferrous Sulfate 325 MG TAB PO SCH ×2 (09:36→17:33)
[2016-11-30] MEDS: Multivitamin Tab PO SCH (09:37)
[2016-11-30] MEDS ORDERED: Levofloxacin 500mg/100mL 500 MG/100 ML BAG IV ONE (14:00)
--- NOTE | 2016-11-30 14:43 | Consultation ---
Consult Note - Consult Note Service Date: 11/30/16 Referring Physician: Cheng Dwyer Consult Note: [id number]
[2016-11-30] MEDS: Sodium Chloride 0.45% 1,000 ML IV SCH (15:22)
--- NOTE | 2016-11-30 15:34 | Consultation ---
DATE OF CONSULTATION: 11/30/2016 PHYSICIAN REQUESTING CONSULTATION: Dr. Sasha Dwyer. REASON FOR CONSULTATION: Agitated behavior. HISTORY OF PRESENT ILLNESS: This patient is a 71-year-old woman, resident of [facility]. JUSTIFICATION OF HOSPITALIZATION: The patient is admitted for anemia, ____, urinal problems and possibly UTI and psychiatric consultation is called to address the issue of the agitated behavior. As per the information obtained, the patient is also reported to have a history of being screaming and yelling and has been maintained on Seroquel. At the time of the evaluation, the patient has been noted to be on Depakote 500 mg 3 times a day for her seizure disorder. The patient is also on memantine 5 mg twice a day and the patient is very drowsy and is not able to provide much of information during the interview. The patient, however, has been reported to have been having problems with sleep last night. This morning, she seems to be doing a little bit better. PAST PSYCHIATRIC HISTORY: Details about the patient's prior psychiatric hospitalizations are not known, but the patient is reported to have been hospitalized for agitated behavior. SUBSTANCE ABUSE HISTORY: None. PHYSICAL OR SEXUAL ABUSE HISTORY: None. LEGAL PROBLEMS: None at this time. STRENGTH AND ASSETS: The patient seems to be motivated, but seems to be too drowsy with the possibly high dose of the Seroquel that is 75 mg that she is taking. The patient is not presenting with any threats to harm self or others and no major behavioral problems are noted. The patient's short and long-term memory noted to be poor. The patient is stating that she is getting too tired to give any information that she is very weak. DIAGNOSES AT THE TIME OF EVALUATION: 1. Psychiatric disorder, not otherwise specified. 2. Dementia and behavioral change secondary trait. PL AN: The patient is going to be observed on the inpatient unit, provided with supportive psychotherapy. The patient is going to be encouraged to participate in the groups and verbalize the concerns. Once stabilized, the patient is going to be discharged to the facility. Thank you, Dr. Dwyer, for allowing me to participate in the care of the patient. JOB# [id number]
--- NOTE | 2016-11-30 22:38 | Progress Notes ---
DATE: 11/30/2016 SUBJECTIVE: The patient was seen in her room lying in the bed. The patient is a poor historian. The patient currently has bilateral mittens for safety. The patient appears to be chronically ill, otherwise in no acute distress. OBJECTIVE: HEENT: Head is atraumatic and normocephalic. Eyes: Bilateral conjunctivae are clear. Bilateral pupils are equally round and reactive. NECK: Supple. No JVD. CARDIOVASCULAR: S1 and S2 without murmur. PULMONARY: Decreased breath sounds on both sides. GASTROINTESTINAL: Soft and nontender without guarding. MUSCULOSKELETAL: No edema. No clubbing. ASSESSMENT: 1. Dementia. 2. Anemia. 3. Hypothyroidism. 4. Seizure. 5. Chronic obstructive pulmonary disease. 6. Acute renal failure. 7. History of psychosis. 8. Adult failure to thrive. PLAN: We will keep the patient inpatient in telemetry unit. We will follow up with ID doctor and also with the extracting machine operator to monitor the patient's condition. JOB# [id number]
[2016-12-01] MEDS: Sodium Chloride 0.45% 1,000 ML IV SCH ×2 (04:39→19:54)
[2016-12-01] MEDS: Levothyroxine 0.05 Mg Tab PO SCH (06:31)
[2016-12-01 06:57] LABS: MEAN CELL VOLUME 92.9 fl (81-100); MEAN CORPUSCULAR HEMOGLOBIN 31.8 pg (27.0-31.0); MEAN CORPUSCULAR HGB CONC 34.2 pg (28.0-36.0); MEAN PLATELET VOLUME 7.1 fl; RED BLOOD COUNT 2.11 Mil/cmm (3.80-5.20); RED CELL DISTRIBUTION WIDTH 17.1 % (11.5-20.0)
[2016-12-01 07:19] LABS: ALB/GLOB RATIO 0.6 (1.0-1.8); ALKALINE PHOSPHATASE 33 U/L (34-104); ANION GAP 9.3 (7.0-16.0); BILIRUBIN,TOTAL 0.2 mg/dL (0.3-1.0); BUN - UREA NITROGEN 51 mg/dL (7-25); BUN/CREATININE RATIO 42.5; CALCIUM SERUM 8.5 mg/dL (8.6-10.3); CARBON DIOXIDE 23.6 mEq/L (21.0-31.0); CHLORIDE 103 mEq/L (98-107); CREATININE - SERUM 1.2 mg/dL (0.6-1.2); GLUCOSE 76 mg/dL (70-105); MAGNESIUM 1.9 mg/dL (1.9-2.7); PHOSPHOROUS 2.8 mg/dL (2.5-5.0); SGOT 12 U/L (13-39); SGPT/ALT < 3 U/L (7-52); SODIUM SERUM 133 mEq/L (136-145); URIC ACID 7.1 mg/dL (2.3-6.6)
[2016-12-01] MEDS ORDERED: Potassium Chloride 20 mEq ER Tab PO ONE (08:28)
[2016-12-01 08:34] LABS: WHITE BLOOD COUNT 3.8 Th/cmm (4.8-10.8)
[2016-12-01 08:35] LABS: HEMATOCRIT 19.5 % (35.0-45.0); HEMOGLOBIN 6.7 gm/dL (11.7-16.1)
[2016-12-01 08:44] LABS: POTASSIUM SERUM 2.9 mEq/L (3.5-5.1)
[2016-12-01] MEDS: Ferrous Sulfate 325 MG TAB PO SCH ×2 (09:09→17:17)
[2016-12-01] MEDS: Multivitamin Tab PO SCH (09:10)
[2016-12-01] MEDS: Ascorbic Acid/Vit B Complex Tab PO SCH (09:11)
[2016-12-01 10:12] LABS: MICROALBUMIN RANDOM RUINE 115.4 ug/mL (Not Estab.)
--- NOTE | 2016-12-01 11:05 | General Progress Note ---
Subjective - Review of Systems Service Date: 12/01/16 Events since last encounter: laying in bed Subjective: pt is weak c/o no pain hb low urine e coli Objective - Results Result Diagrams: 12/01/16 10:38 12/01/16 06:35 Recent Labs: Laboratory Last Values WBC 3.8 Th/cmm (4.8-10.8) L D 12/01/16 06:35 RBC 2.11 Mil/cmm (3.80-5.20) L 12/01/16 06:35 Hgb 6.7 gm/dL (11.7-16.1) L* D 12/01/16 06:35 Hct 19.5 % (35.0-45.0) L* D 12/01/16 06:35 MCV 92.9 fl (81-100) 12/01/16 06:35 MCH 31.8 pg (27.0-31.0) H 12/01/16 06:35 MCHC Differential 34.2 pg (28.0-36.0) 12/01/16 06:35 RDW 17.1 % (11.5-20.0) 12/01/16 06:35 Plt Count 133 Th/cmm (150-400) L 11/29/16 08:45 MPV 7.1 fl 12/01/16 06:35 Neutrophils % 64.5 % (40.0-80.0) 11/29/16 08:45 Lymphocytes % 28.6 % (20.0-50.0) 11/29/16 08:45 Monocytes % 6.8 % (2.0-10.0) 11/29/16 08:45 Eosinophils % 0.1 % (0.0-5.0) 11/29/16 08:45 Basophils % 0.0 % (0.0-2.0) 11/29/16 08:45 Eos Smear Source URINE 11/30/16 16:40 Eos Smear Total Cells MODERATE EOS. SEEN (NONE SEEN) 11/30/16 16:40 PT 10.3 SECONDS (9.5-11.5) 11/28/16 21:14 INR 0.99 (0.5-1.4) 11/28/16 21:14 PTT (Actin FS) 28.0 SECONDS (26.0-38.0) 11/28/16 21:14 Sodium 133 mEq/L (136-145) L 12/01/16 06:35 Potassium 2.9 mEq/L (3.5-5.1) L* D 12/01/16 06:35 Chloride 103 mEq/L (98-107) 12/01/16 06:35 Carbon Dioxide 23.6 mEq/L (21.0-31.0) 12/01/16 06:35 Anion Gap 9.3 (7.0-16.0) 12/01/16 06:35 BUN 51 mg/dL (7-25) H 12/01/16 06:35 Creatinine 1.2 mg/dL (0.6-1.2) 12/01/16 06:35 Est GFR ( Amer) TNP 12/01/16 06:35 Est GFR (Non-Af Amer) TNP 12/01/16 06:35 BUN/Creatinine Ratio 42.5 12/01/16 06:35 Glucose 76 mg/dL (70-105) 12/01/16 06:35 Uric Acid 7.1 mg/dL (2.3-6.6) H 12/01/16 06:35 Calcium 8.5 mg/dL (8.6-10.3) L 12/01/16 06:35 Phosphorus 2.8 mg/dL (2.5-5.0) 12/01/16 06:35 Magnesium 1.9 mg/dL (1.9-2.7) 12/01/16 06:35 Total Bilirubin 0.2 mg/dL (0.3-1.0) L 12/01/16 06:35 AST 12 U/L (13-39) L 12/01/16 06:35 ALT < 3 U/L (7-52) L 12/01/16 06:35 Alkaline Phosphatase 33 U/L (34-104) L 12/01/16 06:35 Total Protein 5.9 gm/dL (6.0-8.3) L 12/01/16 06:35 Albumin 2.1 gm/dL (3.7-5.3) L 12/01/16 06:35 Globulin 3.8 gm/dL 12/01/16 06:35 Albumin/Globulin Ratio 0.6 (1.0-1.8) L 12/01/16 06:35 Urine Source CLEAN C 11/29/16 13:10 Urine Color YELLOW 11/29/16 13:10 Urine Clarity CLOUDY (CLEAR) H 11/29/16 13:10 Urine pH 5.5 11/29/16 13:10 Ur Specific [place] 1.020 (1.005-1.030) 11/29/16 13:10 Urine Protein 100 mg/dL (NEGATIVE) H 11/29/16 13:10 Urine Glucose (UA) NEGATIVE mg/dL (NEGATIVE) 11/29/16 13:10 Urine Ketones NEGATIVE mg/dL (NEGATIVE) 11/29/16 13:10 Urine Blood LARGE (NEGATIVE) H 11/29/16 13:10 Urine Nitrate NEGATIVE (NEGATIVE) 11/29/16 13:10 Urine Bilirubin NEGATIVE (NEGATIVE) 11/29/16 13:10 Urine Urobilinogen 0.2 E.U./dL (0.2 - 1.0) 11/29/16 13:10 Ur Leukocyte Esterase MODERATE (NEGATIVE) H 11/29/16 13:10 Urine RBC 25-50 /hpf (0-5) H 11/29/16 13:10 Urine WBC >100 /hpf (0-5) H 11/29/16 13:10 Ur Epithelial Cells FEW /lpf (FEW) 11/29/16 13:10 Urine Bacteria MANY /hpf (NONE SEEN) 11/29/16 13:10 Ur Random Sodium 59 mmol/L 11/30/16 16:40 Urine Creatinine 57.8 mg/dl (Not Estab.) 11/30/16 16:40 Urine Microalbumin 115.4 ug/mL (Not Estab.) 11/30/16 16:40 Microalb/Creat Ratio 199.7 mg/g creat (0.0-30.0) H 11/30/16 16:40 Valproic Acid 69.2 ug/mL (50.0-100.0) 11/28/16 21:14 Blood Type B POSITIVE 12/01/16 09:50 Antibody Screen NEGATIVE 12/01/16 09:50 Crossmatch See Detail 12/01/16 09:50 - Physical Exam Vitals and I&O: Vital Signs Temp 96.1 F 12/01/16 08:00 Pulse 63 12/01/16 09:12 Resp 18 12/01/16 08:00 BP 127/61 12/01/16 09:12 Pulse Ox 99 12/01/16 08:00 Intake & Output 11/30/16 12/01/16 12/01/16 18:59 06:59 18:59 Intake Total 400 1116.25 Balance 400 1116.25 Intake: Intake, IV Amount 996.25 Sodium Chloride 0.45% 1, 996.25 000 ml @ 75 mls/hr IV . [id number] [facility] Rx#:[id number] Oral 400 120 Other: # Voids 2 3 # Bowel Movements 1 1 Active Medications: Current Medications Acetaminophen (Tylenol) 650 mg PO Q4H PRN PRN Reason: Pain Or Fever >100 Stop: 01/28/17 10:31 Acetaminophen/Hydrocodone Bitart ([place] 5mg/325mg) 1 tab PO Q4H PRN PRN Reason: mod to severe pain Stop: 01/28/17 10:31 Al Hydrox/Mg Hydrox/Simethicone (Maalox) 30 ml PO Q4H PRN PRN Reason: GI DISTRESS Stop: 01/28/17 10:31 Albuterol/Ipratropium (Duoneb Neb) 3 ml HHN Q6HRT PRN PRN Reason: sob/copd Stop: 01/28/17 10:31 Last Admin: 11/29/16 14:57 Dose: 3 ml Amlodipine Besylate (Norvasc) 10 mg PO DAILY [facility] Stop: 01/29/17 08:59 Last Admin: 12/01/16 09:12 Dose: Not Given Divalproex Sodium (Depakote Dr) 500 mg PO TID [facility] PRN Reason: Protocol Stop: 01/28/17 13:59 Last Admin: 12/01/16 09:08 Dose: 500 mg Docusate Sodium (Colace) 250 mg PO DAILY [facility] Stop: 01/28/17 13:59 Last Admin: 12/01/16 09:09 Dose: 250 mg Famotidine (Pepcid) 20 mg PO HS [facility] Stop: 01/28/17 20:59 Last Admin: 11/30/16 20:40 Dose: 20 mg Ferrous Sulfate (Iron) 325 mg PO BID [facility] Stop: 01/28/17 16:59 Last Admin: 12/01/16 09:09 Dose: 325 mg Folic Acid (Folate) 1 mg PO DAILY [facility] Stop: 01/28/17 13:59 Last Admin: 12/01/16 09:09 Dose: 1 mg Gabapentin (Neurontin) 100 mg PO TID [facility] Stop: 01/28/17 13:59 Last Admin: 12/01/16 09:09 Dose: 100 mg Heparin Sodium (Porcine) (Heparin) 5,000 units SUBQ Q12HR [facility] Stop: 01/28/17 20:59 Last Admin: 12/01/16 09:10 Dose: 5,000 units Sodium Chloride (Nacl 0.45%) 1,000 mls @ 75 mls/hr IV .[id number] [facility] Stop: 01/29/17 14:29 Last Admin: 12/01/16 04:39 Dose: 75 mls/hr Levofloxacin (Levaquin) 250 mg PO DAILY [facility] Stop: 01/30/17 08:59 Last Admin: 12/01/16 09:09 Dose: 250 mg Levothyroxine Sodium (Synthroid) 0.05 mg PO QDAC [facility] Stop: 01/29/17 07:29 Last Admin: 12/01/16 06:31 Dose: 0.05 mg Losartan Potassium (Cozaar) 50 mg PO DAILY [facility] Stop: 01/28/17 13:59 Last Admin: 12/01/16 09:10 Dose: 50 mg Megestrol Acetate (Megace) 400 mg PO BID [facility] Stop: 01/28/17 16:59 Last Admin: 12/01/16 09:10 Dose: 400 mg Memantine (Namenda) 5 mg PO BID [facility] Stop: 01/28/17 16:59 Last Admin: 12/01/16 09:10 Dose: 5 mg Multivitamins/Vitamin C (Theragran) 1 tab PO DAILY [facility] Stop: 01/28/17 13:59 Last Admin: 12/01/16 09:10 Dose: 1 tab Ondansetron HCl (Zofran) 4 mg IVP Q6H PRN PRN Reason: nausea and vomiting Pantoprazole Sodium (Protonix) 40 mg IVP Q12HR [facility] Stop: 01/30/17 10:44 Last Admin: 12/01/16 10:54 Dose: 40 mg Quetiapine Fumarate (Seroquel) 50 mg PO BID [facility] PRN Reason: Protocol Stop: 01/28/17 16:59 Last Admin: 12/01/16 09:10 Dose: 50 mg Vitamin B Complex/Vitamin C (Vitamin B Complex W/C) 1 tab PO DAILY [facility] Stop: 01/28/17 13:59 Last Admin: 12/01/16 09:11 Dose: 1 tab Assessment/Plan - Problem List Patient Problems: All Active Problems Skin ulcer (Acute) L98.956
--- NOTE | 2016-12-01 11:38 | Consultation ---
DATE OF CONSULTATION: 11/29/2016 REFERRING PHYSICIAN: Dr. Dwyer. REASON FOR CONSULTATION: UTI. HISTORY OF PRESENT ILLNESS: The patient is a 71-year-old female with a past medical history of peptic ulcer disease, hypothyroidism, polyneuropathy, seizure disorder, renal failure, nephritis, COPD, and GI bleed, in past, metabolic encephalopathy, pancytopenia, malnutrition, brought in from nursing facility for generalized weakness. On further evaluation, the patient was found to have pyuria and bacteriuria. The patient was given one dose of Levaquin and ID consult was called for further antibiotic management. PAST MEDICAL HISTORY: Includes COPD, GI bleed, renal failure, history of nephritis, pancytopenia, metabolic encephalopathy, peptic ulcer disease, hypothyroidism, polyneuropathy, seizure disorder, and psychosis. ALLERGIES: THE PATIENT IS ALLERGIC TO PENICILLIN, METRONIDAZOLE, AMPICILLIN, AND SULFA. SOCIAL HISTORY: The patient lives in a nursing facility. No history of smoking, alcohol or drug use. REVIEW OF SYSTEMS: The patient is a poor historian. So far, the patient has no fever. PHYSICAL EXAMINATION: VITAL SIGNS: Current vital signs show temperature is 96.8 degrees Fahrenheit, pulse is 60, respirations 18, and blood pressure 101/41. GENERAL: The patient is comfortable lying in the bed, not in acute distress. HEENT: Head is normocephalic and atraumatic. Oral cavity moist. [place] tongue. Eyes: Pallor is present, no icterus. PERRLA. EOMI. NECK: Supple. No JVD. No carotid bruits. Trachea in midline. CHEST: Bilateral breath sounds. No crackles or wheezing. HEART: S1, S2 within normal limits. Regular rhythm. No murmur or gallop. ABDOMEN: Soft, nontender, and nondistended. Bowel sounds are present. EXTREMITIES: No cyanosis, no clubbing, and no edema. NEUROLOGIC: Alert, awake, and oriented x 3. LABORATORY DATA: Current lab shows WBC count is 6000, hemoglobin 9.2, hematocrit 27.1, platelets are 133,000, neutrophils 64.5%. Sodium 142, potassium 4.2, chloride 111, bicarbonate is 22, BUN is 54, creatinine is 1.7, and glucose is 121. Urinalysis showed cloudy urine with large blood, moderate leukocyte esterase, nitrite negative, wbc more than 100 and many bacteria. IMPRESSION: 1. Urinary tract infection with urine culture growing more than 100,000 gram-negative rods. 2. Anemia. 3. Chronic obstructive pulmonary disease. 4. Protein-calorie malnutrition. 5. Depression. 6. History of gastrointestinal bleed in the past. 7. Acute renal failure. RECOMMENDATIONS: We will continue Levaquin 250 mg p.o. daily. Thank you, Dr. Dwyer, for involving me in taking care of this patient. [facility]# [id number] [facility]
[2016-12-01 11:52] LABS: ANISOCYTOSIS 1+; BAND NEUTROPHILE 5 % (0-10); NEUTROPHILS 44 % (40-80); PLATELET ESTIMATE DECREASED PLATELETS (NORMAL); PLATELET MORPHOLOGY GIANT PLATELETS SEEN (NORMAL); TOTAL CELLS COUNTED 100
[2016-12-01 12:59] LABS: RBC RETICULOCYTE COUNT 2.11 Mil/cmm
[2016-12-01 13:00] LABS: HEMATOCRIT 19.5 % (37.0-47.0); RETICULOCYTES % COUNTED 2.2 % (0.5-1.5)
--- NOTE | 2016-12-01 13:18 | General Progress Note ---
Subjective - Review of Systems Service Date: 12/01/16 Subjective: sleeping, comfortable Objective - Results Result Diagrams: 12/01/16 10:38 12/01/16 06:35 Recent Labs: Laboratory Last Values WBC 3.8 Th/cmm (4.8-10.8) L D 12/01/16 06:35 RBC 2.11 Mil/cmm (3.80-5.20) L 12/01/16 06:35 Hgb 6.7 gm/dL (11.7-16.1) L* D 12/01/16 06:35 Hct 19.5 % (37.0-47.0) L* 12/01/16 10:38 MCV 92.9 fl (81-100) 12/01/16 06:35 MCH 31.8 pg (27.0-31.0) H 12/01/16 06:35 MCHC Differential 34.2 pg (28.0-36.0) 12/01/16 06:35 RDW 17.1 % (11.5-20.0) 12/01/16 06:35 Plt Count Th/cmm (150-400) 12/01/16 06:35 MPV 7.1 fl 12/01/16 06:35 Neutrophils % 64.5 % (40.0-80.0) 11/29/16 08:45 Band Neutrophils % 5 % (0-10) 12/01/16 06:35 Lymphocytes % 28.6 % (20.0-50.0) 11/29/16 08:45 Monocytes % 6.8 % (2.0-10.0) 11/29/16 08:45 Eosinophils % 0.1 % (0.0-5.0) 11/29/16 08:45 Basophils % 0.0 % (0.0-2.0) 11/29/16 08:45 Neutrophils (Manual) 44 % (40-80) 12/01/16 06:35 Lymphocytes 47 % (20-50) 12/01/16 06:35 Monocytes 4 % (2-10) 12/01/16 06:35 Platelet Estimate DECREASED PLATELETS (NORMAL) 12/01/16 06:35 Platelet Morphology GIANT PLATELETS SEEN (NORMAL) 12/01/16 06:35 Anisocytosis 1+ 12/01/16 06:35 RBC Morph Micro Appear ABNORMAL (NORMAL) 12/01/16 06:35 Total Retics Counted 2.2 % (0.5-1.5) H 12/01/16 10:38 Absolute Retic 46.4 Th/cmm 12/01/16 10:38 Corrected Retic Count 1.0 % (0.5-1.5) 12/01/16 10:38 Eos Smear Source URINE 11/30/16 16:40 Eos Smear Total Cells MODERATE EOS. SEEN (NONE SEEN) 11/30/16 16:40 PT 10.3 SECONDS (9.5-11.5) 11/28/16 21:14 INR 0.99 (0.5-1.4) 11/28/16 21:14 PTT (Actin FS) 28.0 SECONDS (26.0-38.0) 11/28/16 21:14 Sodium 133 mEq/L (136-145) L 12/01/16 06:35 Potassium 2.9 mEq/L (3.5-5.1) L* D 12/01/16 06:35 Chloride 103 mEq/L (98-107) 12/01/16 06:35 Carbon Dioxide 23.6 mEq/L (21.0-31.0) 12/01/16 06:35 Anion Gap 9.3 (7.0-16.0) 12/01/16 06:35 BUN 51 mg/dL (7-25) H 12/01/16 06:35 Creatinine 1.2 mg/dL (0.6-1.2) 12/01/16 06:35 Est GFR ( Amer) TNP 12/01/16 06:35 Est GFR (Non-Af Amer) TNP 12/01/16 06:35 BUN/Creatinine Ratio 42.5 12/01/16 06:35 Glucose 76 mg/dL (70-105) 12/01/16 06:35 Uric Acid 7.1 mg/dL (2.3-6.6) H 12/01/16 06:35 Calcium 8.5 mg/dL (8.6-10.3) L 12/01/16 06:35 Phosphorus 2.8 mg/dL (2.5-5.0) 12/01/16 06:35 Magnesium 1.9 mg/dL (1.9-2.7) 12/01/16 06:35 Total Bilirubin 0.2 mg/dL (0.3-1.0) L 12/01/16 06:35 AST 12 U/L (13-39) L 12/01/16 06:35 ALT < 3 U/L (7-52) L 12/01/16 06:35 Alkaline Phosphatase 33 U/L (34-104) L 12/01/16 06:35 Total Protein 5.9 gm/dL (6.0-8.3) L 12/01/16 06:35 Albumin 2.1 gm/dL (3.7-5.3) L 12/01/16 06:35 Globulin 3.8 gm/dL 12/01/16 06:35 Albumin/Globulin Ratio 0.6 (1.0-1.8) L 12/01/16 06:35 TSH 5.04 uIU/ml (0.34-5.60) 12/01/16 06:35 Urine Source CLEAN C 11/29/16 13:10 Urine Color YELLOW 11/29/16 13:10 Urine Clarity CLOUDY (CLEAR) H 11/29/16 13:10 Urine pH 5.5 11/29/16 13:10 Ur Specific Palms 1.020 (1.005-1.030) 11/29/16 13:10 Urine Protein 100 mg/dL (NEGATIVE) H 11/29/16 13:10 Urine Glucose (UA) NEGATIVE mg/dL (NEGATIVE) 11/29/16 13:10 Urine Ketones NEGATIVE mg/dL (NEGATIVE) 11/29/16 13:10 Urine Blood LARGE (NEGATIVE) H 11/29/16 13:10 Urine Nitrate NEGATIVE (NEGATIVE) 11/29/16 13:10 Urine Bilirubin NEGATIVE (NEGATIVE) 11/29/16 13:10 Urine Urobilinogen 0.2 E.U./dL (0.2 - 1.0) 11/29/16 13:10 Ur Leukocyte Esterase MODERATE (NEGATIVE) H 11/29/16 13:10 Urine RBC 25-50 /hpf (0-5) H 11/29/16 13:10 Urine WBC >100 /hpf (0-5) H 11/29/16 13:10 Ur Epithelial Cells FEW /lpf (FEW) 11/29/16 13:10 Urine Bacteria MANY /hpf (NONE SEEN) 11/29/16 13:10 Ur Random Sodium 59 mmol/L 11/30/16 16:40 Urine Creatinine 57.8 mg/dl (Not Estab.) 11/30/16 16:40 Urine Microalbumin 115.4 ug/mL (Not Estab.) 11/30/16 16:40 Microalb/Creat Ratio 199.7 mg/g creat (0.0-30.0) H 11/30/16 16:40 Valproic Acid 69.2 ug/mL (50.0-100.0) 11/28/16 21:14 Blood Type B POSITIVE 12/01/16 09:50 Antibody Screen NEGATIVE 12/01/16 09:50 Crossmatch See Detail 12/01/16 09:50 - Physical Exam Vitals and I&O: Vital Signs Temp 97.5 F 12/01/16 12:00 Pulse 68 12/01/16 12:00 Resp 16 12/01/16 12:00 BP 102/50 12/01/16 12:00 Pulse Ox 92 12/01/16 12:00 Intake & Output 11/30/16 12/01/16 12/01/16 18:59 06:59 18:59 Intake Total 400 1116.25 Balance 400 1116.25 Intake: Intake, IV Amount 996.25 Sodium Chloride 0.45% 1, 996.25 000 ml @ 75 mls/hr IV . [id number] [facility] Rx#:[id number] Oral 400 120 Other: # Voids 2 3 # Bowel Movements 1 1 Active Medications: Current Medications Acetaminophen (Tylenol) 650 mg PO Q4H PRN PRN Reason: Pain Or Fever >100 Stop: 01/28/17 10:31 Acetaminophen/Hydrocodone Bitart ([place] 5mg/325mg) 1 tab PO Q4H PRN PRN Reason: mod to severe pain Stop: 01/28/17 10:31 Al Hydrox/Mg Hydrox/Simethicone (Maalox) 30 ml PO Q4H PRN PRN Reason: GI DISTRESS Stop: 01/28/17 10:31 Albuterol/Ipratropium (Duoneb Neb) 3 ml HHN Q6HRT PRN PRN Reason: sob/copd Stop: 01/28/17 10:31 Last Admin: 11/29/16 14:57 Dose: 3 ml Amlodipine Besylate (Norvasc) 10 mg PO DAILY RENZO Stop: 01/29/17 08:59 Last Admin: 12/01/16 09:12 Dose: Not Given Divalproex Sodium (Depakote Dr) 500 mg PO TID [facility] PRN Reason: Protocol Stop: 01/28/17 13:59 Last Admin: 12/01/16 09:08 Dose: 500 mg Docusate Sodium (Colace) 250 mg PO DAILY RENZO Stop: 01/28/17 13:59 Last Admin: 12/01/16 09:09 Dose: 250 mg Famotidine (Pepcid) 20 mg PO HS RENZO Stop: 01/28/17 20:59 Last Admin: 11/30/16 20:40 Dose: 20 mg Ferrous Sulfate (Iron) 325 mg PO BID RENZO Stop: 01/28/17 16:59 Last Admin: 12/01/16 09:09 Dose: 325 mg Folic Acid (Folate) 1 mg PO DAILY RENZO Stop: 01/28/17 13:59 Last Admin: 12/01/16 09:09 Dose: 1 mg Gabapentin (Neurontin) 100 mg PO TID RENZO Stop: 01/28/17 13:59 Last Admin: 12/01/16 09:09 Dose: 100 mg Heparin Sodium (Porcine) (Heparin) 5,000 units SUBQ Q12HR RENZO Stop: 01/28/17 20:59 Last Admin: 12/01/16 09:10 Dose: 5,000 units Sodium Chloride (Nacl 0.45%) 1,000 mls @ 75 mls/hr IV .[id number] RENZO Stop: 01/29/17 14:29 Last Admin: 12/01/16 04:39 Dose: 75 mls/hr Levofloxacin (Levaquin) 250 mg PO DAILY RENZO Stop: 01/30/17 08:59 Last Admin: 12/01/16 09:09 Dose: 250 mg Levothyroxine Sodium (Synthroid) 0.05 mg PO QDAC RENZO Stop: 01/29/17 07:29 Last Admin: 12/01/16 06:31 Dose: 0.05 mg Losartan Potassium (Cozaar) 50 mg PO DAILY RENZO Stop: 01/28/17 13:59 Last Admin: 12/01/16 09:10 Dose: 50 mg Megestrol Acetate (Megace) 400 mg PO BID RENZO Stop: 01/28/17 16:59 Last Admin: 12/01/16 09:10 Dose: 400 mg Memantine (Namenda) 5 mg PO BID RENZO Stop: 01/28/17 16:59 Last Admin: 12/01/16 09:10 Dose: 5 mg Multivitamins/Vitamin C (Theragran) 1 tab PO DAILY RENZO Stop: 01/28/17 13:59 Last Admin: 12/01/16 09:10 Dose: 1 tab Ondansetron HCl (Zofran) 4 mg IVP Q6H PRN PRN Reason: nausea and vomiting Pantoprazole Sodium (Protonix) 40 mg IVP Q12HR RENZO Stop: 01/30/17 10:44 Last Admin: 12/01/16 10:54 Dose: 40 mg Quetiapine Fumarate (Seroquel) 50 mg PO BID RENZO PRN Reason: Protocol Stop: 01/28/17 16:59 Last Admin: 12/01/16 09:10 Dose: 50 mg Vitamin B Complex/Vitamin C (Vitamin B Complex W/C) 1 tab PO DAILY RENZO Stop: 01/28/17 13:59 Last Admin: 12/01/16 09:11 Dose: 1 tab General: No acute distress HEENT: Atraumatic, Mucous membr. moist/pink Neck: Supple, +2 carotid pulse wo bruit Cardiovascular: Regular rate, Normal S1, Normal S2 Lungs: Clear to auscultation Abdomen: Bowel sounds, Soft Extremities: no Edema Neurological: Sensation intact Skin: no Rash Psych/Mental Status: Mood NL Assessment/Plan - Problem List Patient Problems: All Active Problems Skin ulcer (Acute) L98.499 - Assessment Assessment: SILVIA Anemia acute on CD Psychosis FTT PUD COPD hypothyroid Epilepsy Cx UTI - Plan Plan: Lab - Result Diagrams 12/01/16 10:38 12/01/16 06:35 Current Medications Acetaminophen (Tylenol) 650 mg PO Q4H PRN PRN Reason: Pain Or Fever >100 Stop: 01/28/17 10:31 Acetaminophen/Hydrocodone Bitart ([place] 5mg/325mg) 1 tab PO Q4H PRN PRN Reason: mod to severe pain Stop: 01/28/17 10:31 Al Hydrox/Mg Hydrox/Simethicone (Maalox) 30 ml PO Q4H PRN PRN Reason: GI DISTRESS Stop: 01/28/17 10:31 Albuterol/Ipratropium (Duoneb Neb) 3 ml HHN Q6HRT PRN PRN Reason: sob/copd Stop: 01/28/17 10:31 Last Admin: 11/29/16 14:57 Dose: 3 ml Amlodipine Besylate (Norvasc) 10 mg PO DAILY RENZO Stop: 01/29/17 08:59 Last Admin: 12/01/16 09:12 Dose: Not Given Divalproex Sodium (Depakote Dr) 500 mg PO TID RENZO PRN Reason: Protocol Stop: 01/28/17 13:59 Last Admin: 12/01/16 09:08 Dose: 500 mg Docusate Sodium (Colace) 250 mg PO DAILY RENZO Stop: 01/28/17 13:59 Last Admin: 12/01/16 09:09 Dose: 250 mg Famotidine (Pepcid) 20 mg PO HS RENZO Stop: 01/28/17 20:59 Last Admin: 11/30/16 20:40 Dose: 20 mg Ferrous Sulfate (Iron) 325 mg PO BID RENZO Stop: 01/28/17 16:59 Last Admin: 12/01/16 09:09 Dose: 325 mg Folic Acid (Folate) 1 mg PO DAILY RENZO Stop: 01/28/17 13:59 Last Admin: 12/01/16 09:09 Dose: 1 mg Gabapentin (Neurontin) 100 mg PO TID RENZO Stop: 01/28/17 13:59 Last Admin: 12/01/16 09:09 Dose: 100 mg Heparin Sodium (Porcine) (Heparin) 5,000 units SUBQ Q12HR RENZO Stop: 01/28/17 20:59 Last Admin: 12/01/16 09:10 Dose: 5,000 units Sodium Chloride (Nacl 0.45%) 1,000 mls @ 75 mls/hr IV .[id number] [facility] Stop: 01/29/17 14:29 Last Admin: 12/01/16 04:39 Dose: 75 mls/hr Levofloxacin (Levaquin) 250 mg PO DAILY RENZO Stop: 01/30/17 08:59 Last Admin: 12/01/16 09:09 Dose: 250 mg Levothyroxine Sodium (Synthroid) 0.05 mg PO QDAC RENZO Stop: 01/29/17 07:29 Last Admin: 12/01/16 06:31 Dose: 0.05 mg Losartan Potassium (Cozaar) 50 mg PO DAILY RENZO Stop: 01/28/17 13:59 Last Admin: 12/01/16 09:10 Dose: 50 mg Megestrol Acetate (Megace) 400 mg PO BID RENZO Stop: 01/28/17 16:59 Last Admin: 12/01/16 09:10 Dose: 400 mg Memantine (Namenda) 5 mg PO BID RENZO Stop: 01/28/17 16:59 Last Admin: 12/01/16 09:10 Dose: 5 mg Multivitamins/Vitamin C (Theragran) 1 tab PO DAILY RENZO Stop: 01/28/17 13:59 Last Admin: 12/01/16 09:10 Dose: 1 tab Ondansetron HCl (Zofran) 4 mg IVP Q6H PRN PRN Reason: nausea and vomiting Pantoprazole Sodium (Protonix) 40 mg IVP Q12HR RENZO Stop: 01/30/17 10:44 Last Admin: 12/01/16 10:54 Dose: 40 mg Quetiapine Fumarate (Seroquel) 50 mg PO BID RENZO PRN Reason: Protocol Stop: 01/28/17 16:59 Last Admin: 12/01/16 09:10 Dose: 50 mg Vitamin B Complex/Vitamin C (Vitamin B Complex W/C) 1 tab PO DAILY RENZO Stop: 01/28/17 13:59 Last Admin: 12/01/16 09:11 Dose: 1 tab kidney fnc improving w/ BUN/CR of 51/1.2 continue ivf agree w/ K replacement for transfusion today due to sudden drop in HGB/HCT, but no obvious bleed f/u electrolytes, cbc
[2016-12-01] MEDS: Meropenem 500 MG in Sodium Chloride 0.9% 100 ML IV SCH ×2 (19:54→23:46)
--- NOTE | 2016-12-01 22:10 | Consultation ---
DATE OF CONSULTATION: 11/30/2016 ATTENDING: Sasha Dwyer M.D. [employer]ACHINE: Royce Meehan M.D. REASON FOR CONSULTATION: Worsening kidney function, electrolyte imbalance and fluid management. HISTORY OF PRESENT ILLNESS: This is a 71-year-old female, who was brought in because of worsening generalized weakness. A few days prior to admission, the patient developed generalized weakness. This was associated with worsening oral intake. Her condition deteriorated and became severely weak. Thus, she was brought to the Emergency Room. Her white count was 5.3 with a temperature of 96.8. Chest x-ray revealed no acute disease. However, urinalysis was suggestive of urinary tract infection. The patient does have a history of chronic kidney disease. Labs drawn while she was admitted at [facility] a month ago, showed a BUN/creatinine of 39/1.5. Her BUN/creatinine on admission here at [facility] were 54/1.7 with a potassium of 6.1. Potassium improved to 4.2 today. PAST MEDICAL HISTORY: 1. Chronic kidney disease. 2. Hypothyroidism. 3. COPD. 4. Anemia of chronic kidney disease. 5. Schizophrenia. 6. Alzheimer dementia. 7. Sacral ulcer. 8. Polyneuropathy. 9. Metabolic encephalopathy. 10. Essential hypertension. CURRENT MEDICATIONS: She is currently on acetaminophen, albuterol/ipratropium, ascorbic acid, Depakote, Colace, Pepcid, iron, folate, Neurontin, heparin, levofloxacin, levothyroxine, losartan, megestrol, Namenda, Theragran, Zofran, Seroquel, and Norvasc. ALLERGIES: ALLERGIC TO AMPICILLIN, METRONIDAZOLE, PENICILLIN, SULFA. SOCIAL AND FAMILY HISTORY: I was unable to obtain from the patient because she remains nonverbal. REVIEW OF SYSTEMS: Again, I was unable to obtain directly from the patient. However, based on transfer notes: CONSTITUTIONAL: The patient's appetite had deteriorated. She did not have any fever nor chills. She had worsening generalized weakness. HEENT: No mention of headaches nor dizziness. CARDIORESPIRATORY: She did have some occasional cough and congestion. However, there was no shortness of breath, chest pain, palpitations, nor diaphoresis. GASTROINTESTINAL: No mention of nausea and vomiting, abdominal pain, no cramping, hematemesis, melena, hematochezia, nor diarrhea. ENDOCRINE: She has a history of hypothyroidism. MUSCULOSKELETAL: Multiple joint arthralgias. GENITOURINARY: History of chronic kidney disease. She does have history of recurrent UTIs. At this point, no dysuria, no hematuria. HEMATOLOGIC: She has anemia of chronic kidney disease. NEUROPSYCH: No syncopal episode or seizure activity. She has severe polyneuropathy, Alzheimer dementia, schizophrenia and metabolic encephalopathy. PHYSICAL EXAMINATION: GENERAL: The patient is arousable; however, remains nonverbal, not in any form of distress. VITAL SIGNS: Her blood pressure is 101/41, pulse 60, temperature 96.8 degrees. SKIN: Poor turgor, warm, no rash, no jaundice appreciated. HEENT: Head normocephalic, atraumatic. Eyes, extraocular muscles intact. Pupils equal, round, reactive to light and accommodates, anicteric sclerae, pale conjunctivae. Nose, midline nasal septum. Mouth, dry mucosa with very poor dentition. NECK: Supple. No adenopathy, no thyromegaly, no bruits. Trachea palpated in the midline. CHEST AND CARDIOVASCULAR SYSTEM: S1, S2. No rub, murmur nor gallop appreciated. Point of maximal impulse fifth intercostal space, left midclavicular line. No abdominal or femoral bruits appreciated. LUNGS: Equal expansion. No use of accessory muscles. No supraclavicular retraction. Few rhonchi with some congestion, but no rales, no wheezes appreciated. BREASTS: Symmetrical, without any discharge. ABDOMEN: Flat, soft. Positive for bowel sounds. No bruits either diastolic or systolic. RECTAL: Lax sphincter tone. GENITOURINARY: Normal appearing female genitalia. MUSCULOSKELETAL: No effusions present in her joints with limited range of motion. EXTREMITIES: No evidence of edema, cyanosis or clubbing with palpable femoral, but unable to fully appreciate popliteal and dorsalis pedis pulses. NEUROLOGIC: The patient is awake, remains nonverbal, unable to follow my neuro commands, so I was unable to pursue further on my neuro exam. LABORATORY DATA: Did reveal a white count of 6, hemoglobin 9.3, hematocrit 27.1, platelets 133, polys 64.5%. Sodium 142, potassium 4.2, chloride 111, bicarbonate 21.8, BUN 54, creatinine 1.5, glucose 121, calcium 10.2. IMPRESSION: 1. Chronic kidney disease, MDRD GFR of 31.4 mL per minute, stage 3. The patient's chronic kidney disease is secondary to hypertension and nephrosclerosis with longstanding history of hypertension. Acute kidney injury is initially prerenal in nature. The patient developed failure to thrive. She was unable to eat appropriately and drink fluids to replenish both sensible and insensible losses. Physical exam revealed dry oral mucosa, poor skin turgor. Blood pressure was on the low side. She also had a very concentrated urine. These are all suggestive of underlying dehydration, which could give rise to a decrease in this effective circulating volume. Her prerenal azotemia progressed to acute tubular injury. She also has ongoing urinary tract infection which could give rise to acute interstitial nephritis. 2. Severe malnutrition secondary to failure to thrive. 3. Hypothyroidism. 4. Chronic obstructive pulmonary disease. 5. Anemia of chronic kidney disease. 6. Schizophrenia. 7. Alzheimer dementia. 8. Sacral ulcer. 9. Polyneuropathy. 10. Metabolic encephalopathy. 11. Essential hypertension with chronic kidney disease. 12. Complicated urinary tract infection. PLAN: 1. Continue with IV fluids. 2. Urinalysis, urine spot sodium, urine eosinophils and creatinine. 3. Urine culture and sensitivity. 4. Urine microalbumin to creatinine ratio. 5. Renal ultrasound. 6. Follow up electrolytes and uric acid level. Thank you, Dr. Dwyer, for this consult. I will follow the patient closely with you. JOB# [id number]
--- NOTE | 2016-12-02 02:36 | Consultation ---
DATE OF CONSULTATION: 12/01/2016 REASON FOR CONSULTATION: Severe anemia with significant drop of hemoglobin overnight in a patient with history of peptic ulcer disease. HISTORY OF PRESENT ILLNESS: This consult was obtained through the courtesy of Dr. Dwyer for this 71-year-old with history of psychosis, polyneuropathy, hypothyroidism, seizure disorder, chronic kidney disease, COPD and history of peptic ulcer disease, admitted to the hospital for generalized weakness, UTI and psychosis. While in the hospital, she dropped hemoglobin overnight. GI consult was called in for further evaluation. The patient denies any nausea or vomiting. She is not aware of melena or rectal bleeding, but she denies any hematemesis. She is not aware of weight loss. PAST MEDICAL HISTORY: Peptic ulcer disease, neuropathy, hypothyroidism, chronic kidney disease, psychosis and COPD. PAST SURGICAL HISTORY: She had hysterectomy. SOCIAL HISTORY: The patient is an ex-smoker, nonalcoholic and non-IV drug abuser. FAMILY HISTORY: Noncontributory. ALLERGIES: Ampicillin, Flagyl and sulfa. MEDICATIONS: The patient is on Tylenol, [place], Maalox, DuoNeb, Norvasc, Depakote, Colace, Pepcid, iron, folate, Neurontin, heparin, Levaquin, Synthroid, Cozaar, Megace, Namenda, Theragran, Zofran, Seroquel and B12. REVIEW OF SYSTEMS: No abdominal pain, no nausea or vomiting, no hematemesis, denies chest pain. She is not short of breath. PHYSICAL EXAMINATION: GENERAL: The patient is awake and oriented to self and place. VITAL SIGNS: Blood pressure is 127/61, heart rate 63, respiratory rate 70 and temperature is 97.0. HEAD AND NECK: Pupils reactive to light. Extraocular muscles could not be tested. Oral cavity, no lesion. NECK: Supple. No jugular venous distention. No carotid bruit or lymph nodes. CHEST: Good respiratory movements. LUNGS: Clear to auscultation. CARDIOVASCULAR: Regular rate and rhythm. No murmur or gallop. ABDOMEN: Soft, positive bowel sounds. ____ surgery. EXTREMITIES: Lower extremities, no edema. CENTRAL NERVOUS SYSTEM: Grossly nonfocal. The patient is moving 4 extremities. LABORATORY DATA: The patient presented on the 11/28/2016, with hemoglobin of 10.2. Today is 6.7. She had hematocrit of 29.9. Now is 19.4. MCV and RDW are normal. Platelets were 133 two days ago. PT has been normal on the 12/06/2016. Potassium today is 2.9. BUN and creatinine are 51 and 1.2. Liver enzymes are not elevated. Albumin is 2.1. IMPRESSION: This is a 71-year-old with severe anemia. ASSESSMENT AND PLAN: Anemia, rule out gastrointestinal blood loss versus multifactorial anemia due to ____ disease, hemolysis and GI blood loss, etc. DIFFERENTIAL DIAGNOSES: For gastrointestinal blood loss could be peptic ulcer disease, could be upper gastrointestinal malignancy, still could be colon lesions. RECOMMENDATIONS: 1. Stool for occult blood. 2. Serum iron, TIBC, ferritin, B12, folic acid. 3. Transfusion. 4. Check heptoglobin. 5. EGD in the morning. 6. If negative, then colonoscopy. Other medical problems such as COPD, psychosis, seizure, etc., as per Dr. Dwyer. Thank you, Dr. Dwyer for allowing me to participate in the care of the patient. If you have any further questions, please let me know. JOB# [id number]
[2016-12-02] MEDS: Meropenem 500 MG in Sodium Chloride 0.9% 100 ML IV SCH (03:36)
[2016-12-02] MEDS: Levothyroxine 0.05 Mg Tab PO SCH (06:36)
[2016-12-02 07:52] LABS: % EOSINOPHILS 0.3 % (0.0-5.0); % LYMPHOCYTES 26.2 % (20.0-50.0); % MONOCYTES 8.6 % (2.0-10.0); % NEUTROPHILS 64.9 % (40.0-80.0); HEMATOCRIT 35.9 % (35.0-45.0); MEAN CELL VOLUME 90.7 fl (81-100); MEAN CORPUSCULAR HEMOGLOBIN 31.6 pg (27.0-31.0); MEAN CORPUSCULAR HGB CONC 34.9 pg (28.0-36.0); MEAN PLATELET VOLUME 7.5 fl; NEUTROPHILE ABSOLUTE 3.7 Th/cmm (1.8-8.0); RED BLOOD COUNT 3.96 Mil/cmm (3.80-5.20); RED CELL DISTRIBUTION WIDTH 15.9 % (11.5-20.0)
[2016-12-02 07:53] LABS: HEMOGLOBIN 12.5 gm/dL (11.7-16.1); WHITE BLOOD COUNT 5.7 Th/cmm (4.8-10.8)
[2016-12-02 07:59] LABS: ANION GAP 8.9 (7.0-16.0); BUN - UREA NITROGEN 39 mg/dL (7-25); CALCIUM SERUM 9.2 mg/dL (8.6-10.3); CARBON DIOXIDE 19.6 mEq/L (21.0-31.0); CHLORIDE 107 mEq/L (98-107); GLUCOSE 67 mg/dL (70-105); MAGNESIUM 1.8 mg/dL (1.9-2.7); POTASSIUM SERUM 3.5 mEq/L (3.5-5.1); SODIUM SERUM 132 mEq/L (136-145)
[2016-12-02] MEDS: Ascorbic Acid/Vit B Complex Tab PO SCH (08:17)
[2016-12-02] MEDS: Ferrous Sulfate 325 MG TAB PO SCH ×2 (08:17→17:10)
[2016-12-02] MEDS: Multivitamin Tab PO SCH (08:18)
[2016-12-02 09:30] LABS: PLATELET COUNT 77 Th/cmm (150-400)
--- NOTE | 2016-12-02 10:34 | Infectious Disease Prog Note ---
Infectious Disease Subjective - Review of Systems Service Date: 12/02/16 Subjective: There is no new change. There is no fever. Infectious Disease Objective - Results Result Diagrams: 12/02/16 07:22 12/02/16 07:22 Recent Labs: Laboratory Last Values WBC 5.7 Th/cmm (4.8-10.8) D 12/02/16 07:22 RBC 3.96 Mil/cmm (3.80-5.20) 12/02/16 07:22 Hgb 12.5 gm/dL (11.7-16.1) D 12/02/16 07:22 Hct 35.9 % (35.0-45.0) D 12/02/16 07:22 MCV 90.7 fl (81-100) 12/02/16 07:22 MCH 31.6 pg (27.0-31.0) H 12/02/16 07:22 MCHC Differential 34.9 pg (28.0-36.0) 12/02/16 07:22 RDW 15.9 % (11.5-20.0) 12/02/16 07:22 Plt Count 77 Th/cmm (150-400) L D 12/02/16 07:22 MPV 7.5 fl 12/02/16 07:22 Neutrophils % 64.9 % (40.0-80.0) 12/02/16 07:22 Band Neutrophils % 5 % (0-10) 12/01/16 06:35 Lymphocytes % 26.2 % (20.0-50.0) 12/02/16 07:22 Monocytes % 8.6 % (2.0-10.0) 12/02/16 07:22 Eosinophils % 0.3 % (0.0-5.0) 12/02/16 07:22 Basophils % 0.0 % (0.0-2.0) 12/02/16 07:22 Neutrophils (Manual) 44 % (40-80) 12/01/16 06:35 Lymphocytes 47 % (20-50) 12/01/16 06:35 Monocytes 4 % (2-10) 12/01/16 06:35 Platelet Estimate DECREASED PLATELETS (NORMAL) 12/01/16 06:35 Platelet Morphology GIANT PLATELETS SEEN (NORMAL) 12/01/16 06:35 Anisocytosis 1+ 12/01/16 06:35 RBC Morph Micro Appear ABNORMAL (NORMAL) 12/01/16 06:35 Total Retics Counted 2.2 % (0.5-1.5) H 12/01/16 10:38 Absolute Retic 46.4 Th/cmm 12/01/16 10:38 Corrected Retic Count 1.0 % (0.5-1.5) 12/01/16 10:38 Eos Smear Source URINE 11/30/16 16:40 Eos Smear Total Cells MODERATE EOS. SEEN (NONE SEEN) 11/30/16 16:40 PT 10.3 SECONDS (9.5-11.5) 11/28/16 21:14 INR 0.99 (0.5-1.4) 11/28/16 21:14 PTT (Actin FS) 28.0 SECONDS (26.0-38.0) 11/28/16 21:14 Sodium 132 mEq/L (136-145) L 12/02/16 07:22 Potassium 3.5 mEq/L (3.5-5.1) 12/02/16 07:22 Chloride 107 mEq/L (98-107) 12/02/16 07:22 Carbon Dioxide 19.6 mEq/L (21.0-31.0) L 12/02/16 07:22 Anion Gap 8.9 (7.0-16.0) 12/02/16 07:22 BUN 39 mg/dL (7-25) H 12/02/16 07:22 Creatinine 1.0 mg/dL (0.6-1.2) 12/02/16 07:22 Est GFR ( Amer) TNP 12/02/16 07:22 Est GFR (Non-Af Amer) TNP 12/02/16 07:22 BUN/Creatinine Ratio 39.0 12/02/16 07:22 Glucose 67 mg/dL (70-105) L 12/02/16 07:22 Uric Acid 7.1 mg/dL (2.3-6.6) H 12/01/16 06:35 Calcium 9.2 mg/dL (8.6-10.3) 12/02/16 07:22 Phosphorus 2.8 mg/dL (2.5-5.0) 12/01/16 06:35 Magnesium 1.8 mg/dL (1.9-2.7) L 12/02/16 07:22 Total Bilirubin 0.2 mg/dL (0.3-1.0) L 12/01/16 06:35 AST 12 U/L (13-39) L 12/01/16 06:35 ALT < 3 U/L (7-52) L 12/01/16 06:35 Alkaline Phosphatase 33 U/L (34-104) L 12/01/16 06:35 Total Protein 5.9 gm/dL (6.0-8.3) L 12/01/16 06:35 Albumin 2.1 gm/dL (3.7-5.3) L 12/01/16 06:35 Globulin 3.8 gm/dL 12/01/16 06:35 Albumin/Globulin Ratio 0.6 (1.0-1.8) L 12/01/16 06:35 TSH 5.04 uIU/ml (0.34-5.60) 12/01/16 06:35 Urine Source CLEAN C 11/29/16 13:10 Urine Color YELLOW 11/29/16 13:10 Urine Clarity CLOUDY (CLEAR) H 11/29/16 13:10 Urine pH 5.5 11/29/16 13:10 Ur Specific [place] 1.020 (1.005-1.030) 11/29/16 13:10 Urine Protein 100 mg/dL (NEGATIVE) H 11/29/16 13:10 Urine Glucose (UA) NEGATIVE mg/dL (NEGATIVE) 11/29/16 13:10 Urine Ketones NEGATIVE mg/dL (NEGATIVE) 11/29/16 13:10 Urine Blood LARGE (NEGATIVE) H 11/29/16 13:10 Urine Nitrate NEGATIVE (NEGATIVE) 11/29/16 13:10 Urine Bilirubin NEGATIVE (NEGATIVE) 11/29/16 13:10 Urine Urobilinogen 0.2 E.U./dL (0.2 - 1.0) 11/29/16 13:10 Ur Leukocyte Esterase MODERATE (NEGATIVE) H 11/29/16 13:10 Urine RBC 25-50 /hpf (0-5) H 11/29/16 13:10 Urine WBC >100 /hpf (0-5) H 11/29/16 13:10 Ur Epithelial Cells FEW /lpf (FEW) 11/29/16 13:10 Urine Bacteria MANY /hpf (NONE SEEN) 11/29/16 13:10 Ur Random Sodium 59 mmol/L 11/30/16 16:40 Urine Creatinine 57.8 mg/dl (Not Estab.) 11/30/16 16:40 Urine Microalbumin 115.4 ug/mL (Not Estab.) 11/30/16 16:40 Microalb/Creat Ratio 199.7 mg/g creat (0.0-30.0) H 11/30/16 16:40 Valproic Acid 69.2 ug/mL (50.0-100.0) 11/28/16 21:14 Blood Type B POSITIVE 12/01/16 09:50 Antibody Screen NEGATIVE 12/01/16 09:50 Crossmatch See Detail 12/01/16 09:50 - Physical Exam Vitals and I&O: Vital Signs Temp 97.4 F 12/02/16 04:00 Pulse 67 12/02/16 07:20 Resp 18 12/02/16 07:49 BP 134/72 12/02/16 04:00 Pulse Ox 96 12/02/16 07:20 Intake & Output 12/01/16 12/02/16 12/02/16 18:59 06:59 18:59 Intake Total 1650 50 Balance 1650 50 Intake: Intake, IV Amount 1000 Sodium Chloride 0.45% 1, 1000 000 ml @ 75 mls/hr IV . [id number] [facility] Rx#:[id number] Oral 400 50 Blood Product 250 Other: # Voids 2 3 # Bowel Movements 1 1 Active Medications: Current Medications Acetaminophen (Tylenol) 650 mg PO Q4H PRN PRN Reason: Pain Or Fever >100 Stop: 01/28/17 10:31 Acetaminophen/Hydrocodone Bitart ([place] 5mg/325mg) 1 tab PO Q4H PRN PRN Reason: mod to severe pain Stop: 01/28/17 10:31 Al Hydrox/Mg Hydrox/Simethicone (Maalox) 30 ml PO Q4H PRN PRN Reason: GI DISTRESS Stop: 01/28/17 10:31 Albuterol/Ipratropium (Duoneb Neb) 3 ml HHN Q6HRT PRN PRN Reason: sob/copd Stop: 01/28/17 10:31 Last Admin: 11/29/16 14:57 Dose: 3 ml Amlodipine Besylate (Norvasc) 10 mg PO DAILY [facility] Stop: 01/29/17 08:59 Last Admin: 12/02/16 08:17 Dose: Not Given Divalproex Sodium (Depakote Dr) 500 mg PO TID [facility] PRN Reason: Protocol Stop: 01/28/17 13:59 Last Admin: 12/02/16 08:17 Dose: Not Given Docusate Sodium (Colace) 250 mg PO DAILY [facility] Stop: 01/28/17 13:59 Last Admin: 12/02/16 08:17 Dose: Not Given Famotidine (Pepcid) 20 mg PO HS [facility] Stop: 01/28/17 20:59 Last Admin: 12/01/16 22:08 Dose: 20 mg Ferrous Sulfate (Iron) 325 mg PO BID [facility] Stop: 01/28/17 16:59 Last Admin: 12/02/16 08:17 Dose: Not Given Folic Acid (Folate) 1 mg PO DAILY [facility] Stop: 01/28/17 13:59 Last Admin: 12/02/16 09:12 Dose: Not Given Gabapentin (Neurontin) 100 mg PO TID [facility] Stop: 01/28/17 13:59 Last Admin: 12/02/16 08:17 Dose: Not Given Heparin Sodium (Porcine) (Heparin) 5,000 units SUBQ Q12HR [facility] Stop: 01/28/17 20:59 Last Admin: 12/02/16 09:25 Dose: 5,000 units Sodium Chloride (Nacl 0.45%) 1,000 mls @ 75 mls/hr IV .[id number] [facility] Stop: 01/29/17 14:29 Last Admin: 12/01/16 19:54 Dose: 75 mls/hr Ceftriaxone Sodium 1 gm/ (Dextrose) 50 mls @ 100 mls/hr IV Q24H [facility] Stop: 01/31/17 09:59 Levothyroxine Sodium (Synthroid) 0.05 mg PO QDAC [facility] Stop: 01/29/17 07:29 Last Admin: 12/02/16 06:36 Dose: Not Given Losartan Potassium (Cozaar) 50 mg PO DAILY [facility] Stop: 01/28/17 13:59 Last Admin: 12/02/16 08:18 Dose: Not Given Megestrol Acetate (Megace) 400 mg PO BID [facility] Stop: 01/28/17 16:59 Last Admin: 12/02/16 08:18 Dose: Not Given Memantine (Namenda) 5 mg PO BID [facility] Stop: 01/28/17 16:59 Last Admin: 12/02/16 08:18 Dose: Not Given Multivitamins/Vitamin C (Theragran) 1 tab PO DAILY [facility] Stop: 01/28/17 13:59 Last Admin: 12/02/16 08:18 Dose: Not Given Ondansetron HCl (Zofran) 4 mg IVP Q6H PRN PRN Reason: nausea and vomiting Pantoprazole Sodium (Protonix) 40 mg IVP Q12HR [facility] Stop: 01/30/17 10:44 Last Admin: 12/02/16 09:25 Dose: 40 mg Quetiapine Fumarate (Seroquel) 50 mg PO BID [facility] PRN Reason: Protocol Stop: 01/28/17 16:59 Last Admin: 12/02/16 08:18 Dose: Not Given Vitamin B Complex/Vitamin C (Vitamin B Complex W/C) 1 tab PO DAILY [facility] Stop: 01/28/17 13:59 Last Admin: 12/02/16 08:17 Dose: Not Given General: no acute distress, well developed, well nourished HEENT: atraumatic, normocephalic, PERRLA Neck: supple, no thyromegaly, no lymphadenopathy Cardiovascular: S1S2, regular Lungs: clear to auscultation bilaterally, clear to percussion Abdomen: soft, no tender, no distended Extremities: no cyanosis, no clubbing Neurological: awake, alert, oriented Skin: intact Infectious Disease Assmt/Plan - Problem List Patient Problems: All Active Problems Skin ulcer (Acute) L98.499 - Assessment Assessment: 1. UTI. E coli. 2. Psychosis. 3. Protein calorie malnutrition. 4. COPD. - Plan Plan: Change antibiotics to rocephin for 5 days.
--- NOTE | 2016-12-02 11:24 | Diagnostic Imaging Report ---
Renal ultrasound HISTORY: Abnormal renal function tests The exam is extremely limited due to lack of patient cooperation and patient combativeness. The right kidney is normal in size (10.6 x 5.4 x 4.9 cm). There is an increase in cortical echogenicity. Significance should be correlated clinically and with renal function tests. No focal lesions. No hydronephrosis. There is suboptimal delineation of the margins of the left kidney. Measurement is difficult to obtain. No obvious focal lesions or hydronephrosis Limited evaluation of the urinary bladder due to incomplete distention. IMPRESSION: 1. Very Limited/suboptimal exam due to patient combativeness and lack of cooperation 2. Incomplete visualization of the left kidney with no obvious hydronephrosis 3. Suggestion of increased cortical echogenicity involving the right kidney. Significance should be correlated clinically and with renal function tests
[2016-12-02 11:56] LABS: INR 1.07 (0.5-1.4); PROTHROMBIN TIME (TEST) 11.1 SECONDS (9.5-11.5)
[2016-12-02] MEDS ORDERED: fentaNYL Citrate 100 mcg/2mL Vial ONE (12:06)
[2016-12-02] MEDS ORDERED: Midazolam 1mg/ml 2 ml vial IV ONE ×3 (12:07→13:52)
--- NOTE | 2016-12-02 13:37 | Operative Report ---
DATE OF SURGERY: 12/02/2016 PROCEDURE: Esophagogastroduodenoscopy with biopsy. INDICATION FOR PROCEDURE: Severe anemia and GI bleed. CONSENT: Informed consent was obtained from the patient after outlining benefits and risks including infection, bleeding, perforation, . Informed consent was obtained by 2 physicians. The patient does not have family. ANESTHESIA USED: Demerol 50 mg and Versed 2 mg. PREOPERATIVE DIAGNOSES: 1. Anemia. 2. Gastrointestinal bleed. POSTOPERATIVE DIAGNOSES: 1. Gastritis. 2. Erosions and hiatal hernia. 3. Distal esophagitis. DETAILS OF PROCEDURE: The patient lying on his back. Head was tilted to the side and flexed forward. Upper Olympus endoscope was introduced into the mouth and advanced to the esophagus, which was intubated under direct visualization. Esophageal mucosa was examined on the way down. It showed irregular mucosa. At the distal end, there was couple of erosions such as esophagitis. GE junction was identified at 35 cm. Scope was advanced to the stomach where the gastric mucosa was examined and showed gastritis. There is erythema involving the body and antrum. Scope was retroflexed to examine the cardia and fundus and showed the hiatal hernia and couple of erosions and hernia sac. Scope was then straightened and advanced through the pylorus into the duodenum where the bulb and second parts were examined. They were both normal. Biopsies were taken from the second portion of the duodenum to rule out celiac disease. Scope was then withdrawn to the stomach. Biopsies were taken from the antrum for CLOtest. Scope was then withdrawn while examining the gastric and esophageal mucosa second time. The patient tolerated the procedure well. There were no immediate postoperative complications. RECOMMENDATIONS: 1. Follow up biopsy results. 2. Follow up lab results. 3. Colonoscopy. Thank you, Dr. Dwyer for allowing me to participate in the care of this patient. If you have any further questions, please let me know. JOB# [id number]
[2016-12-02] MEDS ORDERED: fentaNYL Citrate 100 mcg/2mL Vial IVP ONE (13:53)
--- NOTE | 2016-12-02 14:25 | General Progress Note ---
Subjective - Review of Systems Service Date: 12/02/16 Subjective: awake, screaming I want something to eat Objective - Results Result Diagrams: 12/02/16 07:22 12/02/16 07:22 Recent Labs: Laboratory Last Values WBC 5.7 Th/cmm (4.8-10.8) D 12/02/16 07:22 RBC 3.96 Mil/cmm (3.80-5.20) 12/02/16 07:22 Hgb 12.5 gm/dL (11.7-16.1) D 12/02/16 07:22 Hct 35.9 % (35.0-45.0) D 12/02/16 07:22 MCV 90.7 fl (81-100) 12/02/16 07:22 MCH 31.6 pg (27.0-31.0) H 12/02/16 07:22 MCHC Differential 34.9 pg (28.0-36.0) 12/02/16 07:22 RDW 15.9 % (11.5-20.0) 12/02/16 07:22 Plt Count 77 Th/cmm (150-400) L D 12/02/16 07:22 MPV 7.5 fl 12/02/16 07:22 Neutrophils % 64.9 % (40.0-80.0) 12/02/16 07:22 Band Neutrophils % 5 % (0-10) 12/01/16 06:35 Lymphocytes % 26.2 % (20.0-50.0) 12/02/16 07:22 Monocytes % 8.6 % (2.0-10.0) 12/02/16 07:22 Eosinophils % 0.3 % (0.0-5.0) 12/02/16 07:22 Basophils % 0.0 % (0.0-2.0) 12/02/16 07:22 Neutrophils (Manual) 44 % (40-80) 12/01/16 06:35 Lymphocytes 47 % (20-50) 12/01/16 06:35 Monocytes 4 % (2-10) 12/01/16 06:35 Platelet Estimate DECREASED PLATELETS (NORMAL) 12/01/16 06:35 Platelet Morphology GIANT PLATELETS SEEN (NORMAL) 12/01/16 06:35 Anisocytosis 1+ 12/01/16 06:35 RBC Morph Micro Appear ABNORMAL (NORMAL) 12/01/16 06:35 Total Retics Counted 2.2 % (0.5-1.5) H 12/01/16 10:38 Absolute Retic 46.4 Th/cmm 12/01/16 10:38 Corrected Retic Count 1.0 % (0.5-1.5) 12/01/16 10:38 Eos Smear Source URINE 11/30/16 16:40 Eos Smear Total Cells MODERATE EOS. SEEN (NONE SEEN) 11/30/16 16:40 PT 11.1 SECONDS (9.5-11.5) 12/02/16 11:30 INR 1.07 (0.5-1.4) 12/02/16 11:30 PTT (Actin FS) 28.0 SECONDS (26.0-38.0) 11/28/16 21:14 Sodium 132 mEq/L (136-145) L 12/02/16 07:22 Potassium 3.5 mEq/L (3.5-5.1) 12/02/16 07:22 Chloride 107 mEq/L (98-107) 12/02/16 07:22 Carbon Dioxide 19.6 mEq/L (21.0-31.0) L 12/02/16 07:22 Anion Gap 8.9 (7.0-16.0) 12/02/16 07:22 BUN 39 mg/dL (7-25) H 12/02/16 07:22 Creatinine 1.0 mg/dL (0.6-1.2) 12/02/16 07:22 Est GFR ( Amer) TNP 12/02/16 07:22 Est GFR (Non-Af Amer) TNP 12/02/16 07:22 BUN/Creatinine Ratio 39.0 12/02/16 07:22 Glucose 67 mg/dL (70-105) L 12/02/16 07:22 Uric Acid 7.1 mg/dL (2.3-6.6) H 12/01/16 06:35 Calcium 9.2 mg/dL (8.6-10.3) 12/02/16 07:22 Phosphorus 2.8 mg/dL (2.5-5.0) 12/01/16 06:35 Magnesium 1.8 mg/dL (1.9-2.7) L 12/02/16 07:22 Total Bilirubin 0.2 mg/dL (0.3-1.0) L 12/01/16 06:35 AST 12 U/L (13-39) L 12/01/16 06:35 ALT < 3 U/L (7-52) L 12/01/16 06:35 Alkaline Phosphatase 33 U/L (34-104) L 12/01/16 06:35 Total Protein 5.9 gm/dL (6.0-8.3) L 12/01/16 06:35 Albumin 2.1 gm/dL (3.7-5.3) L 12/01/16 06:35 Globulin 3.8 gm/dL 12/01/16 06:35 Albumin/Globulin Ratio 0.6 (1.0-1.8) L 12/01/16 06:35 TSH 5.04 uIU/ml (0.34-5.60) 12/01/16 06:35 Urine Source CLEAN C 11/29/16 13:10 Urine Color YELLOW 11/29/16 13:10 Urine Clarity CLOUDY (CLEAR) H 11/29/16 13:10 Urine pH 5.5 11/29/16 13:10 Ur Specific [place] 1.020 (1.005-1.030) 11/29/16 13:10 Urine Protein 100 mg/dL (NEGATIVE) H 11/29/16 13:10 Urine Glucose (UA) NEGATIVE mg/dL (NEGATIVE) 11/29/16 13:10 Urine Ketones NEGATIVE mg/dL (NEGATIVE) 11/29/16 13:10 Urine Blood LARGE (NEGATIVE) H 11/29/16 13:10 Urine Nitrate NEGATIVE (NEGATIVE) 11/29/16 13:10 Urine Bilirubin NEGATIVE (NEGATIVE) 11/29/16 13:10 Urine Urobilinogen 0.2 E.U./dL (0.2 - 1.0) 11/29/16 13:10 Ur Leukocyte Esterase MODERATE (NEGATIVE) H 11/29/16 13:10 Urine RBC 25-50 /hpf (0-5) H 11/29/16 13:10 Urine WBC >100 /hpf (0-5) H 11/29/16 13:10 Ur Epithelial Cells FEW /lpf (FEW) 11/29/16 13:10 Urine Bacteria MANY /hpf (NONE SEEN) 11/29/16 13:10 Ur Random Sodium 59 mmol/L 11/30/16 16:40 Urine Creatinine 57.8 mg/dl (Not Estab.) 11/30/16 16:40 Urine Microalbumin 115.4 ug/mL (Not Estab.) 11/30/16 16:40 Microalb/Creat Ratio 199.7 mg/g creat (0.0-30.0) H 11/30/16 16:40 Valproic Acid 69.2 ug/mL (50.0-100.0) 11/28/16 21:14 Blood Type B POSITIVE 12/01/16 09:50 Antibody Screen NEGATIVE 12/01/16 09:50 Crossmatch See Detail 12/01/16 09:50 - Physical Exam Vitals and I&O: Vital Signs Temp 97.7 F 12/02/16 12:00 Pulse 79 12/02/16 12:00 Resp 18 12/02/16 12:00 BP 150/90 12/02/16 12:00 Pulse Ox 100 12/02/16 12:00 Intake & Output 12/01/16 12/02/16 12/02/16 18:59 06:59 18:59 Intake Total 1650 50 Balance 1650 50 Intake: Intake, IV Amount 1000 Sodium Chloride 0.45% 1, 1000 000 ml @ 75 mls/hr IV . [id number] [facility] Rx#:[id number] Oral 400 50 Blood Product 250 Other: # Voids 2 3 # Bowel Movements 1 1 Active Medications: Current Medications Acetaminophen (Tylenol) 650 mg PO Q4H PRN PRN Reason: Pain Or Fever >100 Stop: 01/28/17 10:31 Acetaminophen/Hydrocodone Bitart ([place] 5mg/325mg) 1 tab PO Q4H PRN PRN Reason: mod to severe pain Stop: 01/28/17 10:31 Al Hydrox/Mg Hydrox/Simethicone (Maalox) 30 ml PO Q4H PRN PRN Reason: GI DISTRESS Stop: 01/28/17 10:31 Albuterol/Ipratropium (Duoneb Neb) 3 ml HHN Q6HRT PRN PRN Reason: sob/copd Stop: 01/28/17 10:31 Last Admin: 11/29/16 14:57 Dose: 3 ml Amlodipine Besylate (Norvasc) 10 mg PO DAILY [facility] Stop: 01/29/17 08:59 Last Admin: 12/02/16 08:17 Dose: Not Given Bisacodyl (Dulcolax 5 Mg Ec Tab) 10 mg PO X1 ONE Stop: 12/02/16 16:01 Divalproex Sodium (Depakote Dr) 500 mg PO TID [facility] PRN Reason: Protocol Stop: 01/28/17 13:59 Last Admin: 12/02/16 08:17 Dose: Not Given Docusate Sodium (Colace) 250 mg PO DAILY [facility] Stop: 01/28/17 13:59 Last Admin: 12/02/16 08:17 Dose: Not Given Famotidine (Pepcid) 20 mg PO HS [facility] Stop: 01/28/17 20:59 Last Admin: 12/01/16 22:08 Dose: 20 mg Fentanyl Citrate (Sublimaze) 50 mcg IVP X1 ONE Stop: 12/02/16 13:54 Ferrous Sulfate (Iron) 325 mg PO BID [facility] Stop: 01/28/17 16:59 Last Admin: 12/02/16 08:17 Dose: Not Given Folic Acid (Folate) 1 mg PO DAILY [facility] Stop: 01/28/17 13:59 Last Admin: 12/02/16 09:12 Dose: Not Given Gabapentin (Neurontin) 100 mg PO TID [facility] Stop: 01/28/17 13:59 Last Admin: 12/02/16 08:17 Dose: Not Given Heparin Sodium (Porcine) (Heparin) 5,000 units SUBQ Q12HR [facility] Stop: 01/28/17 20:59 Last Admin: 12/02/16 09:25 Dose: 5,000 units Sodium Chloride (Nacl 0.45%) 1,000 mls @ 75 mls/hr IV .[id number] [facility] Stop: 01/29/17 14:29 Last Admin: 12/01/16 19:54 Dose: 75 mls/hr Ceftriaxone Sodium 1 gm/ (Dextrose) 50 mls @ 100 mls/hr IV Q24H [facility] Stop: 01/31/17 09:59 Last Admin: 12/02/16 12:02 Dose: Not Given Levothyroxine Sodium (Synthroid) 0.05 mg PO QDAC [facility] Stop: 01/29/17 07:29 Last Admin: 12/02/16 06:36 Dose: Not Given Losartan Potassium (Cozaar) 50 mg PO DAILY [facility] Stop: 01/28/17 13:59 Last Admin: 12/02/16 08:18 Dose: Not Given Megestrol Acetate (Megace) 400 mg PO BID [facility] Stop: 01/28/17 16:59 Last Admin: 12/02/16 08:18 Dose: Not Given Memantine (Namenda) 5 mg PO BID [facility] Stop: 01/28/17 16:59 Last Admin: 12/02/16 08:18 Dose: Not Given Midazolam HCl (Versed) 2 mg IV X1 ONE Stop: 12/02/16 13:53 Multivitamins/Vitamin C (Theragran) 1 tab PO DAILY [facility] Stop: 01/28/17 13:59 Last Admin: 12/02/16 08:18 Dose: Not Given Ondansetron HCl (Zofran) 4 mg IVP Q6H PRN PRN Reason: nausea and vomiting Pantoprazole Sodium (Protonix) 40 mg IVP Q12HR [facility] Stop: 01/30/17 10:44 Last Admin: 12/02/16 09:25 Dose: 40 mg Quetiapine Fumarate (Seroquel) 50 mg PO BID [facility] PRN Reason: Protocol Stop: 01/28/17 16:59 Last Admin: 12/02/16 08:18 Dose: Not Given Vitamin B Complex/Vitamin C (Vitamin B Complex W/C) 1 tab PO DAILY [facility] Stop: 01/28/17 13:59 Last Admin: 12/02/16 08:17 Dose: Not Given General: Alert, Cooperative, No acute distress HEENT: Atraumatic, EOMI, Mucous membr. moist/pink Neck: Supple, +2 carotid pulse wo bruit Cardiovascular: Regular rate, Normal S1, Normal S2 Lungs: Clear to auscultation Abdomen: Bowel sounds, Soft Extremities: no Edema Neurological: Sensation intact Skin: no Rash Psych/Mental Status: Mood NL (slight agitation) Assessment/Plan - Problem List Patient Problems: All Active Problems Skin ulcer (Acute) L98.499 - Assessment Assessment: SILVIA Anemia acute on CD Psychosis FTT PUD COPD hypothyroid Epilepsy Cx UTI - Plan Plan: Lab - Result Diagrams 12/01/16 10:38 12/01/16 06:35 Current Medications Acetaminophen (Tylenol) 650 mg PO Q4H PRN PRN Reason: Pain Or Fever >100 Stop: 01/28/17 10:31 Acetaminophen/Hydrocodone Bitart ([place] 5mg/325mg) 1 tab PO Q4H PRN PRN Reason: mod to severe pain Stop: 01/28/17 10:31 Al Hydrox/Mg Hydrox/Simethicone (Maalox) 30 ml PO Q4H PRN PRN Reason: GI DISTRESS Stop: 01/28/17 10:31 Albuterol/Ipratropium (Duoneb Neb) 3 ml HHN Q6HRT PRN PRN Reason: sob/copd Stop: 01/28/17 10:31 Last Admin: 11/29/16 14:57 Dose: 3 ml Amlodipine Besylate (Norvasc) 10 mg PO DAILY [facility] Stop: 01/29/17 08:59 Last Admin: 12/01/16 09:12 Dose: Not Given Divalproex Sodium (Depakote Dr) 500 mg PO TID [facility] PRN Reason: Protocol Stop: 01/28/17 13:59 Last Admin: 12/01/16 09:08 Dose: 500 mg Docusate Sodium (Colace) 250 mg PO DAILY [facility] Stop: 01/28/17 13:59 Last Admin: 12/01/16 09:09 Dose: 250 mg Famotidine (Pepcid) 20 mg PO HS [facility] Stop: 01/28/17 20:59 Last Admin: 11/30/16 20:40 Dose: 20 mg Ferrous Sulfate (Iron) 325 mg PO BID [facility] Stop: 01/28/17 16:59 Last Admin: 12/01/16 09:09 Dose: 325 mg Folic Acid (Folate) 1 mg PO DAILY [facility] Stop: 01/28/17 13:59 Last Admin: 12/01/16 09:09 Dose: 1 mg Gabapentin (Neurontin) 100 mg PO TID [facility] Stop: 01/28/17 13:59 Last Admin: 12/01/16 09:09 Dose: 100 mg Heparin Sodium (Porcine) (Heparin) 5,000 units SUBQ Q12HR [facility] Stop: 01/28/17 20:59 Last Admin: 12/01/16 09:10 Dose: 5,000 units Sodium Chloride (Nacl 0.45%) 1,000 mls @ 75 mls/hr IV .[id number] [facility] Stop: 01/29/17 14:29 Last Admin: 12/01/16 04:39 Dose: 75 mls/hr Levofloxacin (Levaquin) 250 mg PO DAILY [facility] Stop: 01/30/17 08:59 Last Admin: 12/01/16 09:09 Dose: 250 mg Levothyroxine Sodium (Synthroid) 0.05 mg PO QDAC [facility] Stop: 01/29/17 07:29 Last Admin: 12/01/16 06:31 Dose: 0.05 mg Losartan Potassium (Cozaar) 50 mg PO DAILY [facility] Stop: 01/28/17 13:59 Last Admin: 12/01/16 09:10 Dose: 50 mg Megestrol Acetate (Megace) 400 mg PO BID [facility] Stop: 01/28/17 16:59 Last Admin: 12/01/16 09:10 Dose: 400 mg Memantine (Namenda) 5 mg PO BID [facility] Stop: 01/28/17 16:59 Last Admin: 12/01/16 09:10 Dose: 5 mg Multivitamins/Vitamin C (Theragran) 1 tab PO DAILY [facility]ZO Stop: 01/28/17 13:59 Last Admin: 12/01/16 09:10 Dose: 1 tab Ondansetron HCl (Zofran) 4 mg IVP Q6H PRN PRN Reason: nausea and vomiting Pantoprazole Sodium (Protonix) 40 mg IVP Q12HR [facility] Stop: 01/30/17 10:44 Last Admin: 12/01/16 10:54 Dose: 40 mg Quetiapine Fumarate (Seroquel) 50 mg PO BID [facility]ZO PRN Reason: Protocol Stop: 01/28/17 16:59 Last Admin: 12/01/16 09:10 Dose: 50 mg Vitamin B Complex/Vitamin C (Vitamin B Complex W/C) 1 tab PO DAILY [facility]ZO Stop: 01/28/17 13:59 Last Admin: 12/01/16 09:11 Dose: 1 tab kidney fnc improving w/ BUN/CR of 39/1 continue ivf agree w/ K replacement for transfusion today due to sudden drop in HGB/HCT, but no obvious bleed per EGD EGD result noted HGB/HCT stable @ 12.5/35.9
--- NOTE | 2016-12-02 19:10 | General Progress Note ---
Subjective - Review of Systems Service Date: 12/02/16 Subjective: pt is weak c/o no pain urine e coli pt had egd shoes gastrtitis and esophagitis hb is 12 now Objective - Results Result Diagrams: 12/02/16 07:22 12/02/16 07:22 Recent Labs: Laboratory Last Values WBC 5.7 Th/cmm (4.8-10.8) D 12/02/16 07:22 RBC 3.96 Mil/cmm (3.80-5.20) 12/02/16 07:22 Hgb 12.5 gm/dL (11.7-16.1) D 12/02/16 07:22 Hct 35.9 % (35.0-45.0) D 12/02/16 07:22 MCV 90.7 fl (81-100) 12/02/16 07:22 MCH 31.6 pg (27.0-31.0) H 12/02/16 07:22 MCHC Differential 34.9 pg (28.0-36.0) 12/02/16 07:22 RDW 15.9 % (11.5-20.0) 12/02/16 07:22 Plt Count 77 Th/cmm (150-400) L D 12/02/16 07:22 MPV 7.5 fl 12/02/16 07:22 Neutrophils % 64.9 % (40.0-80.0) 12/02/16 07:22 Band Neutrophils % 5 % (0-10) 12/01/16 06:35 Lymphocytes % 26.2 % (20.0-50.0) 12/02/16 07:22 Monocytes % 8.6 % (2.0-10.0) 12/02/16 07:22 Eosinophils % 0.3 % (0.0-5.0) 12/02/16 07:22 Basophils % 0.0 % (0.0-2.0) 12/02/16 07:22 Neutrophils (Manual) 44 % (40-80) 12/01/16 06:35 Lymphocytes 47 % (20-50) 12/01/16 06:35 Monocytes 4 % (2-10) 12/01/16 06:35 Platelet Estimate DECREASED PLATELETS (NORMAL) 12/01/16 06:35 Platelet Morphology GIANT PLATELETS SEEN (NORMAL) 12/01/16 06:35 Anisocytosis 1+ 12/01/16 06:35 RBC Morph Micro Appear ABNORMAL (NORMAL) 12/01/16 06:35 Total Retics Counted 2.2 % (0.5-1.5) H 12/01/16 10:38 Absolute Retic 46.4 Th/cmm 12/01/16 10:38 Corrected Retic Count 1.0 % (0.5-1.5) 12/01/16 10:38 Eos Smear Source URINE 11/30/16 16:40 Eos Smear Total Cells MODERATE EOS. SEEN (NONE SEEN) 11/30/16 16:40 PT 11.1 SECONDS (9.5-11.5) 12/02/16 11:30 INR 1.07 (0.5-1.4) 12/02/16 11:30 PTT (Actin FS) 28.0 SECONDS (26.0-38.0) 11/28/16 21:14 Sodium 132 mEq/L (136-145) L 12/02/16 07:22 Potassium 3.5 mEq/L (3.5-5.1) 12/02/16 07:22 Chloride 107 mEq/L (98-107) 12/02/16 07:22 Carbon Dioxide 19.6 mEq/L (21.0-31.0) L 12/02/16 07:22 Anion Gap 8.9 (7.0-16.0) 12/02/16 07:22 BUN 39 mg/dL (7-25) H 12/02/16 07:22 Creatinine 1.0 mg/dL (0.6-1.2) 12/02/16 07:22 Est GFR ( Amer) TNP 12/02/16 07:22 Est GFR (Non-Af Amer) TNP 12/02/16 07:22 BUN/Creatinine Ratio 39.0 12/02/16 07:22 Glucose 67 mg/dL (70-105) L 12/02/16 07:22 Uric Acid 7.1 mg/dL (2.3-6.6) H 12/01/16 06:35 Calcium 9.2 mg/dL (8.6-10.3) 12/02/16 07:22 Phosphorus 2.8 mg/dL (2.5-5.0) 12/01/16 06:35 Magnesium 1.8 mg/dL (1.9-2.7) L 12/02/16 07:22 Total Bilirubin 0.2 mg/dL (0.3-1.0) L 12/01/16 06:35 AST 12 U/L (13-39) L 12/01/16 06:35 ALT < 3 U/L (7-52) L 12/01/16 06:35 Alkaline Phosphatase 33 U/L (34-104) L 12/01/16 06:35 Total Protein 5.9 gm/dL (6.0-8.3) L 12/01/16 06:35 Albumin 2.1 gm/dL (3.7-5.3) L 12/01/16 06:35 Globulin 3.8 gm/dL 12/01/16 06:35 Albumin/Globulin Ratio 0.6 (1.0-1.8) L 12/01/16 06:35 TSH 5.04 uIU/ml (0.34-5.60) 12/01/16 06:35 Urine Source CLEAN C 11/29/16 13:10 Urine Color YELLOW 11/29/16 13:10 Urine Clarity CLOUDY (CLEAR) H 11/29/16 13:10 Urine pH 5.5 11/29/16 13:10 Ur Specific [place] 1.020 (1.005-1.030) 11/29/16 13:10 Urine Protein 100 mg/dL (NEGATIVE) H 11/29/16 13:10 Urine Glucose (UA) NEGATIVE mg/dL (NEGATIVE) 11/29/16 13:10 Urine Ketones NEGATIVE mg/dL (NEGATIVE) 11/29/16 13:10 Urine Blood LARGE (NEGATIVE) H 11/29/16 13:10 Urine Nitrate NEGATIVE (NEGATIVE) 11/29/16 13:10 Urine Bilirubin NEGATIVE (NEGATIVE) 11/29/16 13:10 Urine Urobilinogen 0.2 E.U./dL (0.2 - 1.0) 11/29/16 13:10 Ur Leukocyte Esterase MODERATE (NEGATIVE) H 11/29/16 13:10 Urine RBC 25-50 /hpf (0-5) H 11/29/16 13:10 Urine WBC >100 /hpf (0-5) H 11/29/16 13:10 Ur Epithelial Cells FEW /lpf (FEW) 11/29/16 13:10 Urine Bacteria MANY /hpf (NONE SEEN) 11/29/16 13:10 Ur Random Sodium 59 mmol/L 11/30/16 16:40 Urine Creatinine 57.8 mg/dl (Not Estab.) 11/30/16 16:40 Urine Microalbumin 115.4 ug/mL (Not Estab.) 11/30/16 16:40 Microalb/Creat Ratio 199.7 mg/g creat (0.0-30.0) H 11/30/16 16:40 Valproic Acid 69.2 ug/mL (50.0-100.0) 11/28/16 21:14 Blood Type B POSITIVE 12/01/16 09:50 Antibody Screen NEGATIVE 12/01/16 09:50 Crossmatch See Detail 12/01/16 09:50 - Physical Exam Vitals and I&O: Vital Signs Temp 97.7 F 12/02/16 12:00 Pulse 79 12/02/16 12:00 Resp 18 12/02/16 16:00 BP 150/90 12/02/16 12:00 Pulse Ox 100 12/02/16 12:00 Intake & Output 12/02/16 12/02/16 12/03/16 06:59 18:59 06:59 Intake Total 50 Balance 50 Intake: Oral 50 Other: # Voids 3 # Bowel Movements 1 Active Medications: Current Medications Acetaminophen (Tylenol) 650 mg PO Q4H PRN PRN Reason: Pain Or Fever >100 Stop: 01/28/17 10:31 Acetaminophen/Hydrocodone Bitart ([place] 5mg/325mg) 1 tab PO Q4H PRN PRN Reason: mod to severe pain Stop: 01/28/17 10:31 Al Hydrox/Mg Hydrox/Simethicone (Maalox) 30 ml PO Q4H PRN PRN Reason: GI DISTRESS Stop: 01/28/17 10:31 Albuterol/Ipratropium (Duoneb Neb) 3 ml HHN Q6HRT PRN PRN Reason: sob/copd Stop: 01/28/17 10:31 Last Admin: 11/29/16 14:57 Dose: 3 ml Amlodipine Besylate (Norvasc) 10 mg PO DAILY [facility] Stop: 01/29/17 08:59 Last Admin: 12/02/16 08:17 Dose: Not Given Divalproex Sodium (Depakote Dr) 500 mg PO TID [facility] PRN Reason: Protocol Stop: 01/28/17 13:59 Last Admin: 12/02/16 14:00 Dose: Not Given Docusate Sodium (Colace) 250 mg PO DAILY [facility] Stop: 01/28/17 13:59 Last Admin: 12/02/16 08:17 Dose: Not Given Famotidine (Pepcid) 20 mg PO HS [facility] Stop: 01/28/17 20:59 Last Admin: 12/01/16 22:08 Dose: 20 mg Ferrous Sulfate (Iron) 325 mg PO BID [facility] Stop: 01/28/17 16:59 Last Admin: 12/02/16 17:10 Dose: 325 mg Folic Acid (Folate) 1 mg PO DAILY [facility] Stop: 01/28/17 13:59 Last Admin: 12/02/16 09:12 Dose: Not Given Gabapentin (Neurontin) 100 mg PO TID [facility] Stop: 01/28/17 13:59 Last Admin: 12/02/16 14:00 Dose: Not Given Heparin Sodium (Porcine) (Heparin) 5,000 units SUBQ Q12HR [facility] Stop: 01/28/17 20:59 Last Admin: 12/02/16 09:25 Dose: 5,000 units Sodium Chloride (Nacl 0.45%) 1,000 mls @ 75 mls/hr IV .[id number] [facility] Stop: 01/29/17 14:29 Last Admin: 12/01/16 19:54 Dose: 75 mls/hr Ceftriaxone Sodium 1 gm/ (Dextrose) 50 mls @ 100 mls/hr IV Q24H [facility] Stop: 01/31/17 09:59 Last Admin: 12/02/16 12:02 Dose: Not Given Levothyroxine Sodium (Synthroid) 0.05 mg PO QDAC [facility] Stop: 01/29/17 07:29 Last Admin: 12/02/16 06:36 Dose: Not Given Losartan Potassium (Cozaar) 50 mg PO DAILY [facility] Stop: 01/28/17 13:59 Last Admin: 12/02/16 08:18 Dose: Not Given Megestrol Acetate (Megace) 400 mg PO BID [facility] Stop: 01/28/17 16:59 Last Admin: 12/02/16 17:10 Dose: 400 mg Memantine (Namenda) 5 mg PO BID [facility] Stop: 01/28/17 16:59 Last Admin: 12/02/16 17:10 Dose: 5 mg Multivitamins/Vitamin C (Theragran) 1 tab PO DAILY [facility] Stop: 01/28/17 13:59 Last Admin: 12/02/16 08:18 Dose: Not Given Ondansetron HCl (Zofran) 4 mg IVP Q6H PRN PRN Reason: nausea and vomiting Pantoprazole Sodium (Protonix) 40 mg IVP Q12HR [facility] Stop: 01/30/17 10:44 Last Admin: 12/02/16 09:25 Dose: 40 mg Quetiapine Fumarate (Seroquel) 50 mg PO BID [facility] PRN Reason: Protocol Stop: 01/28/17 16:59 Last Admin: 12/02/16 17:10 Dose: 50 mg Vitamin B Complex/Vitamin C (Vitamin B Complex W/C) 1 tab PO DAILY [facility] Stop: 01/28/17 13:59 Last Admin: 12/02/16 08:17 Dose: Not Given General: Alert HEENT: PERRLA Neck: Supple Cardiovascular: Regular rate, Normal S1, Normal S2 Abdomen: Bowel sounds, Soft (bed bound) - Procedures Procedures: Procedures Procedure Code Date EGD BIOPSY SINGLE/MULTIPLE 70738 11/28/16 EXCISION OF DUODENUM, ENDO, DIAGN [id number] 11/28/16 EXCISION OF STOMACH, ENDO, DIAGN [id number] 11/28/16 Assessment/Plan - Problem List Patient Problems: All Active Problems Anemia (Acute) D64.9 Esophagitis (Acute) K20.9 Esophagitis (Acute) K20.9 Gastritis (Acute) K29.70 Gastritis (Acute) K29.70 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
[2016-12-02] MEDS: Sodium Chloride 0.45% 1,000 ML IV SCH (21:51)
[2016-12-03 05:11] LABS: FOLIC ACID >20.0 ng/mL (>3.0)
[2016-12-03 07:18] LABS: % BASOPHILS 0.3 % (0.0-2.0); % EOSINOPHILS 0.4 % (0.0-5.0); % LYMPHOCYTES 31.8 % (20.0-50.0); % MONOCYTES 8.4 % (2.0-10.0); % NEUTROPHILS 59.1 % (40.0-80.0); HEMATOCRIT 35.6 % (35.0-45.0); HEMOGLOBIN 12.2 gm/dL (11.7-16.1); MEAN CORPUSCULAR HEMOGLOBIN 30.9 pg (27.0-31.0); MEAN CORPUSCULAR HGB CONC 34.4 pg (28.0-36.0); MEAN PLATELET VOLUME 7.4 fl; NEUTROPHILE ABSOLUTE 3.4 Th/cmm (1.8-8.0); PLATELET COUNT 86 Th/cmm (150-400); RED BLOOD COUNT 3.96 Mil/cmm (3.80-5.20); RED CELL DISTRIBUTION WIDTH 15.8 % (11.5-20.0); WHITE BLOOD COUNT 5.7 Th/cmm (4.8-10.8)
[2016-12-03 07:40] LABS: INR 1.08 (0.5-1.4); PROTHROMBIN TIME (TEST) 11.2 SECONDS (9.5-11.5)
[2016-12-03] MEDS: Levothyroxine 0.05 Mg Tab PO SCH (07:47)
[2016-12-03 08:02] LABS: ANION GAP 10.7 (7.0-16.0); BUN - UREA NITROGEN 27 mg/dL (7-25); CALCIUM SERUM 8.8 mg/dL (8.6-10.3); CARBON DIOXIDE 18.5 mEq/L (21.0-31.0); CHLORIDE 105 mEq/L (98-107); CREATININE - SERUM 0.9 mg/dL (0.6-1.2); GLUCOSE 76 mg/dL (70-105); POTASSIUM SERUM 3.2 mEq/L (3.5-5.1); SODIUM SERUM 131 mEq/L (136-145)
[2016-12-03] MEDS: Ascorbic Acid/Vit B Complex Tab PO SCH (08:44)
[2016-12-03] MEDS: Ferrous Sulfate 325 MG TAB PO SCH ×2 (08:44→16:54)
[2016-12-03] MEDS: Multivitamin Tab PO SCH (08:45)
[2016-12-03] MEDS ORDERED: Magnesium Citrate 1.75 GM/300 mL Bottle PO ONE (09:00)
[2016-12-03 09:23] LABS: FERRITIN 307 ng/mL (15-150); HAPTOGLOBIN 163 mg/dL (34-200); IRON SATURATION 31 % (15-55); TIBC (LCI) 192 ug/dL (250-450); UIBC 132 ug/dL (118-369)
--- NOTE | 2016-12-03 10:08 | Diagnostic Imaging Report ---
CHEST X-RAY: AP view INDICATION: NG tube placement COMPARISON: Chest x-ray 11/28/2016 FINDINGS: NG tube is seen curled within the stomach with tip along the distal esophagus. Chronic lung changes are noted. IMPRESSION: NG tube curled in the stomach with tip along the distal esophagus. Please refer to follow-up x-rays for further findings.
--- NOTE | 2016-12-03 10:09 | Diagnostic Imaging Report ---
CHEST X-RAY: AP view INDICATION: CVA, NG tube readjustment COMPARISON: Chest x-ray 12/03/2016 at 00:38 FINDINGS: NG tube has been readjusted with tip along the distal stomach. Marked increased interstitial lung markings are noted with left basal atelectasis versus infiltrate. Heart size is borderline prominent. Atherosclerosis is noted. IMPRESSION: NG tube readjusted with tip now in the distal stomach Marked increased interstitial lung markings likely chronic. There is probable atelectasis versus infiltrate of the left lung base.
--- NOTE | 2016-12-03 10:16 | Diagnostic Imaging Report ---
CHEST X-RAY: AP view INDICATION: NG tube reinsertion COMPARISON: Chest x-ray 12/03/2016 at 2:34 PM FINDINGS: NG tube is seen within the stomach curled with tip along the proximal body of the stomach. Increased interstitial lung markings are noted with atelectasis versus less likely infiltrate of the left lung base. IMPRESSION: NG tube within the stomach curled with tip along the proximal body of the stomach. Increased interstitial lung markings most likely due to chronic lung changes. Left basal atelectasis versus less likely infiltrate is noted.
[2016-12-03] MEDS: Sodium Chloride 0.45% 1,000 ML IV SCH (11:15)
--- NOTE | 2016-12-03 11:24 | General Progress Note ---
Subjective - Review of Systems Subjective: pt is weak c/o no pain urine e coli pt had egd shoes gastrtitis and esophagitis hb is 12 now Objective - Results Result Diagrams: 12/03/16 07:00 12/03/16 07:00 Recent Labs: Laboratory Last Values WBC 5.7 Th/cmm (4.8-10.8) 12/03/16 07:00 RBC 3.96 Mil/cmm (3.80-5.20) 12/03/16 07:00 Hgb 12.2 gm/dL (11.7-16.1) 12/03/16 07:00 Hct 35.6 % (35.0-45.0) 12/03/16 07:00 MCV 90.0 fl (81-100) 12/03/16 07:00 MCH 30.9 pg (27.0-31.0) 12/03/16 07:00 MCHC Differential 34.4 pg (28.0-36.0) 12/03/16 07:00 RDW 15.8 % (11.5-20.0) 12/03/16 07:00 Plt Count 86 Th/cmm (150-400) L 12/03/16 07:00 MPV 7.4 fl 12/03/16 07:00 Neutrophils % 59.1 % (40.0-80.0) 12/03/16 07:00 Band Neutrophils % 5 % (0-10) 12/01/16 06:35 Lymphocytes % 31.8 % (20.0-50.0) 12/03/16 07:00 Monocytes % 8.4 % (2.0-10.0) 12/03/16 07:00 Eosinophils % 0.4 % (0.0-5.0) 12/03/16 07:00 Basophils % 0.3 % (0.0-2.0) 12/03/16 07:00 Neutrophils (Manual) 44 % (40-80) 12/01/16 06:35 Lymphocytes 47 % (20-50) 12/01/16 06:35 Monocytes 4 % (2-10) 12/01/16 06:35 Platelet Estimate DECREASED PLATELETS (NORMAL) 12/01/16 06:35 Platelet Morphology GIANT PLATELETS SEEN (NORMAL) 12/01/16 06:35 Anisocytosis 1+ 12/01/16 06:35 RBC Morph Micro Appear ABNORMAL (NORMAL) 12/01/16 06:35 Total Retics Counted 2.2 % (0.5-1.5) H 12/01/16 10:38 Absolute Retic 46.4 Th/cmm 12/01/16 10:38 Corrected Retic Count 1.0 % (0.5-1.5) 12/01/16 10:38 Eos Smear Source URINE 11/30/16 16:40 Eos Smear Total Cells MODERATE EOS. SEEN (NONE SEEN) 11/30/16 16:40 Haptoglobin 163 mg/dL (34-200) 12/01/16 10:38 PT 11.2 SECONDS (9.5-11.5) 12/03/16 07:00 INR 1.08 (0.5-1.4) 12/03/16 07:00 PTT (Actin FS) 28.0 SECONDS (26.0-38.0) 11/28/16 21:14 Sodium 131 mEq/L (136-145) L 12/03/16 07:00 Potassium 3.2 mEq/L (3.5-5.1) L 12/03/16 07:00 Chloride 105 mEq/L (98-107) 12/03/16 07:00 Carbon Dioxide 18.5 mEq/L (21.0-31.0) L 12/03/16 07:00 Anion Gap 10.7 (7.0-16.0) 12/03/16 07:00 BUN 27 mg/dL (7-25) H 12/03/16 07:00 Creatinine 0.9 mg/dL (0.6-1.2) 12/03/16 07:00 Est GFR ( Amer) TNP 12/03/16 07:00 Est GFR (Non-Af Amer) TNP 12/03/16 07:00 BUN/Creatinine Ratio 30.0 12/03/16 07:00 Glucose 76 mg/dL (70-105) 12/03/16 07:00 Uric Acid 7.1 mg/dL (2.3-6.6) H 12/01/16 06:35 Calcium 8.8 mg/dL (8.6-10.3) 12/03/16 07:00 Phosphorus 2.8 mg/dL (2.5-5.0) 12/01/16 06:35 Magnesium 1.8 mg/dL (1.9-2.7) L 12/02/16 07:22 Iron 60 ug/dL (27-139) 12/01/16 10:38 TIBC 192 ug/dL (250-450) L 12/01/16 10:38 Iron Saturation 31 % (15-55) 12/01/16 10:38 Unsaturated IBC 132 ug/dL (118-369) 12/01/16 10:38 Ferritin 307 ng/mL (15-150) H 12/01/16 10:38 Total Bilirubin 0.2 mg/dL (0.3-1.0) L 12/01/16 06:35 AST 12 U/L (13-39) L 12/01/16 06:35 ALT < 3 U/L (7-52) L 12/01/16 06:35 Alkaline Phosphatase 33 U/L (34-104) L 12/01/16 06:35 Total Protein 5.9 gm/dL (6.0-8.3) L 12/01/16 06:35 Albumin 2.1 gm/dL (3.7-5.3) L 12/01/16 06:35 Globulin 3.8 gm/dL 12/01/16 06:35 Albumin/Globulin Ratio 0.6 (1.0-1.8) L 12/01/16 06:35 Vitamin B12 902 pg/mL (211-946) 12/01/16 10:38 Folic Acid >20.0 ng/mL (>3.0) 12/01/16 10:38 TSH 5.04 uIU/ml (0.34-5.60) 12/01/16 06:35 Urine Source CLEAN C 11/29/16 13:10 Urine Color YELLOW 11/29/16 13:10 Urine Clarity CLOUDY (CLEAR) H 11/29/16 13:10 Urine pH 5.5 11/29/16 13:10 Ur Specific [place] 1.020 (1.005-1.030) 11/29/16 13:10 Urine Protein 100 mg/dL (NEGATIVE) H 11/29/16 13:10 Urine Glucose (UA) NEGATIVE mg/dL (NEGATIVE) 11/29/16 13:10 Urine Ketones NEGATIVE mg/dL (NEGATIVE) 11/29/16 13:10 Urine Blood LARGE (NEGATIVE) H 11/29/16 13:10 Urine Nitrate NEGATIVE (NEGATIVE) 11/29/16 13:10 Urine Bilirubin NEGATIVE (NEGATIVE) 11/29/16 13:10 Urine Urobilinogen 0.2 E.U./dL (0.2 - 1.0) 11/29/16 13:10 Ur Leukocyte Esterase MODERATE (NEGATIVE) H 11/29/16 13:10 Urine RBC 25-50 /hpf (0-5) H 11/29/16 13:10 Urine WBC >100 /hpf (0-5) H 11/29/16 13:10 Ur Epithelial Cells FEW /lpf (FEW) 11/29/16 13:10 Urine Bacteria MANY /hpf (NONE SEEN) 11/29/16 13:10 Ur Random Sodium 59 mmol/L 11/30/16 16:40 Urine Creatinine 57.8 mg/dl (Not Estab.) 11/30/16 16:40 Urine Microalbumin 115.4 ug/mL (Not Estab.) 11/30/16 16:40 Microalb/Creat Ratio 199.7 mg/g creat (0.0-30.0) H 11/30/16 16:40 Stool Occult Blood NEGATIVE (NEGATIVE) 12/02/16 18:00 Valproic Acid 69.2 ug/mL (50.0-100.0) 11/28/16 21:14 Blood Type B POSITIVE 12/01/16 09:50 Antibody Screen NEGATIVE 12/01/16 09:50 Crossmatch See Detail 12/01/16 09:50 - Physical Exam Vitals and I&O: Vital Signs Temp 96.6 F 12/03/16 08:00 Pulse 82 12/03/16 08:00 Resp 18 12/03/16 08:00 BP 147/80 12/03/16 08:00 Pulse Ox 98 12/03/16 08:00 Intake & Output 12/02/16 12/03/16 12/03/16 18:59 06:59 18:59 Intake Total 4938 993 6925 Balance 3934 028 2851 Intake: Intake, IV Amount 1000 1000 Sodium Chloride 0.45% 1, 1000 1000 000 ml @ 75 mls/hr IV . [id number] [facility] Rx#:[id number] Tube Feeding 600 Other: # Voids 4 # Bowel Movements 2 Active Medications: Current Medications Acetaminophen (Tylenol) 650 mg PO Q4H PRN PRN Reason: Pain Or Fever >100 Stop: 01/28/17 10:31 Acetaminophen/Hydrocodone Bitart ([place] 5mg/325mg) 1 tab PO Q4H PRN PRN Reason: mod to severe pain Stop: 01/28/17 10:31 Al Hydrox/Mg Hydrox/Simethicone (Maalox) 30 ml PO Q4H PRN PRN Reason: GI DISTRESS Stop: 01/28/17 10:31 Albuterol/Ipratropium (Duoneb Neb) 3 ml HHN Q6HRT PRN PRN Reason: sob/copd Stop: 01/28/17 10:31 Last Admin: 11/29/16 14:57 Dose: 3 ml Amlodipine Besylate (Norvasc) 10 mg PO DAILY [facility] Stop: 01/29/17 08:59 Last Admin: 12/03/16 08:44 Dose: Not Given Divalproex Sodium (Depakote Dr) 500 mg PO TID [facility] PRN Reason: Protocol Stop: 01/28/17 13:59 Last Admin: 12/03/16 08:44 Dose: Not Given Docusate Sodium (Colace) 250 mg PO DAILY [facility] Stop: 01/28/17 13:59 Last Admin: 12/03/16 08:44 Dose: Not Given Famotidine (Pepcid) 20 mg PO HS [facility] Stop: 01/28/17 20:59 Last Admin: 12/02/16 21:52 Dose: 20 mg Ferrous Sulfate (Iron) 325 mg PO BID [facility] Stop: 01/28/17 16:59 Last Admin: 12/03/16 08:44 Dose: Not Given Folic Acid (Folate) 1 mg PO DAILY [facility] Stop: 01/28/17 13:59 Last Admin: 12/03/16 08:44 Dose: Not Given Gabapentin (Neurontin) 100 mg PO TID [facility] Stop: 01/28/17 13:59 Last Admin: 12/03/16 08:44 Dose: Not Given Heparin Sodium (Porcine) (Heparin) 5,000 units SUBQ Q12HR [facility] Stop: 01/28/17 20:59 Last Admin: 12/03/16 08:48 Dose: 5,000 units Sodium Chloride (Nacl 0.45%) 1,000 mls @ 75 mls/hr IV .[id number] [facility] Stop: 01/29/17 14:29 Last Admin: 12/03/16 11:15 Dose: 75 mls/hr Ceftriaxone Sodium 1 gm/ (Dextrose) 50 mls @ 100 mls/hr IV Q24H [facility] Stop: 01/31/17 09:59 Last Admin: 12/03/16 11:06 Dose: 100 mls/hr Levothyroxine Sodium (Synthroid) 0.05 mg PO QDAC [facility] Stop: 01/29/17 07:29 Last Admin: 12/03/16 07:47 Dose: Not Given Losartan Potassium (Cozaar) 50 mg PO DAILY [facility] Stop: 01/28/17 13:59 Last Admin: 12/03/16 08:44 Dose: Not Given Megestrol Acetate (Megace) 400 mg PO BID [facility] Stop: 01/28/17 16:59 Last Admin: 12/03/16 08:45 Dose: Not Given Memantine (Namenda) 5 mg PO BID [facility] Stop: 01/28/17 16:59 Last Admin: 12/03/16 08:45 Dose: Not Given Multivitamins/Vitamin C (Theragran) 1 tab PO DAILY [facility] Stop: 01/28/17 13:59 Last Admin: 12/03/16 08:45 Dose: Not Given Ondansetron HCl (Zofran) 4 mg IVP Q6H PRN PRN Reason: nausea and vomiting Pantoprazole Sodium (Protonix) 40 mg IVP Q12HR [facility] Stop: 01/30/17 10:44 Last Admin: 12/03/16 08:48 Dose: 40 mg Quetiapine Fumarate (Seroquel) 50 mg PO BID [facility] PRN Reason: Protocol Stop: 01/28/17 16:59 Last Admin: 12/03/16 08:48 Dose: Not Given Vitamin B Complex/Vitamin C (Vitamin B Complex W/C) 1 tab PO DAILY [facility] Stop: 01/28/17 13:59 Last Admin: 12/03/16 08:44 Dose: Not Given - Procedures Procedures: Procedures Procedure Code Date EGD BIOPSY SINGLE/MULTIPLE 38456 11/28/16 EXCISION OF DUODENUM, ENDO, DIAGN [id number] 11/28/16 EXCISION OF STOMACH, ENDO, DIAGN [id number] 11/28/16 Assessment/Plan - Problem List Patient Problems: All Active Problems Anemia (Acute) D64.9 Esophagitis (Acute) K20.9 Esophagitis (Acute) K20.9 Gastritis (Acute) K29.70 Gastritis (Acute) K29.70 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
--- NOTE | 2016-12-03 11:57 | Pathology Report ---
[id number] Collection date: 12/02/2016 Surgeon: Dr. Sushila Bro Specimen Description: Duodenum biopsy Gross Description: Received in formalin are three salazar soft tissue fragments ranging from 0.1 to 0.2 cm in greatest dimension. Totally submitted in one cassette. Microscopic Description: The histologic sections show duodenal mucosa with intact intestinal villi, showing no evidence for villous abnormality. Diagnosis: There is no evidence for celiac disease / Sprue (duodenal biopsy). [facility]# [id number] MTDD
--- NOTE | 2016-12-03 12:34 | Infectious Disease Prog Note ---
Infectious Disease Subjective - Review of Systems Service Date: 12/03/16 Subjective: There is no new change. There is no fever. Infectious Disease Objective - Results Result Diagrams: 12/03/16 07:00 12/03/16 07:00 Recent Labs: Laboratory Last Values WBC 5.7 Th/cmm (4.8-10.8) 12/03/16 07:00 RBC 3.96 Mil/cmm (3.80-5.20) 12/03/16 07:00 Hgb 12.2 gm/dL (11.7-16.1) 12/03/16 07:00 Hct 35.6 % (35.0-45.0) 12/03/16 07:00 MCV 90.0 fl (81-100) 12/03/16 07:00 MCH 30.9 pg (27.0-31.0) 12/03/16 07:00 MCHC Differential 34.4 pg (28.0-36.0) 12/03/16 07:00 RDW 15.8 % (11.5-20.0) 12/03/16 07:00 Plt Count 86 Th/cmm (150-400) L 12/03/16 07:00 MPV 7.4 fl 12/03/16 07:00 Neutrophils % 59.1 % (40.0-80.0) 12/03/16 07:00 Band Neutrophils % 5 % (0-10) 12/01/16 06:35 Lymphocytes % 31.8 % (20.0-50.0) 12/03/16 07:00 Monocytes % 8.4 % (2.0-10.0) 12/03/16 07:00 Eosinophils % 0.4 % (0.0-5.0) 12/03/16 07:00 Basophils % 0.3 % (0.0-2.0) 12/03/16 07:00 Neutrophils (Manual) 44 % (40-80) 12/01/16 06:35 Lymphocytes 47 % (20-50) 12/01/16 06:35 Monocytes 4 % (2-10) 12/01/16 06:35 Platelet Estimate DECREASED PLATELETS (NORMAL) 12/01/16 06:35 Platelet Morphology GIANT PLATELETS SEEN (NORMAL) 12/01/16 06:35 Anisocytosis 1+ 12/01/16 06:35 RBC Morph Micro Appear ABNORMAL (NORMAL) 12/01/16 06:35 Total Retics Counted 2.2 % (0.5-1.5) H 12/01/16 10:38 Absolute Retic 46.4 Th/cmm 12/01/16 10:38 Corrected Retic Count 1.0 % (0.5-1.5) 12/01/16 10:38 Eos Smear Source URINE 11/30/16 16:40 Eos Smear Total Cells MODERATE EOS. SEEN (NONE SEEN) 11/30/16 16:40 Haptoglobin 163 mg/dL (34-200) 12/01/16 10:38 PT 11.2 SECONDS (9.5-11.5) 12/03/16 07:00 INR 1.08 (0.5-1.4) 12/03/16 07:00 PTT (Actin FS) 28.0 SECONDS (26.0-38.0) 11/28/16 21:14 Sodium 131 mEq/L (136-145) L 12/03/16 07:00 Potassium 3.2 mEq/L (3.5-5.1) L 12/03/16 07:00 Chloride 105 mEq/L (98-107) 12/03/16 07:00 Carbon Dioxide 18.5 mEq/L (21.0-31.0) L 12/03/16 07:00 Anion Gap 10.7 (7.0-16.0) 12/03/16 07:00 BUN 27 mg/dL (7-25) H 12/03/16 07:00 Creatinine 0.9 mg/dL (0.6-1.2) 12/03/16 07:00 Est GFR ( Amer) TNP 12/03/16 07:00 Est GFR (Non-Af Amer) TNP 12/03/16 07:00 BUN/Creatinine Ratio 30.0 12/03/16 07:00 Glucose 76 mg/dL (70-105) 12/03/16 07:00 Uric Acid 7.1 mg/dL (2.3-6.6) H 12/01/16 06:35 Calcium 8.8 mg/dL (8.6-10.3) 12/03/16 07:00 Phosphorus 2.8 mg/dL (2.5-5.0) 12/01/16 06:35 Magnesium 1.8 mg/dL (1.9-2.7) L 12/02/16 07:22 Iron 60 ug/dL (27-139) 12/01/16 10:38 TIBC 192 ug/dL (250-450) L 12/01/16 10:38 Iron Saturation 31 % (15-55) 12/01/16 10:38 Unsaturated IBC 132 ug/dL (118-369) 12/01/16 10:38 Ferritin 307 ng/mL (15-150) H 12/01/16 10:38 Total Bilirubin 0.2 mg/dL (0.3-1.0) L 12/01/16 06:35 AST 12 U/L (13-39) L 12/01/16 06:35 ALT < 3 U/L (7-52) L 12/01/16 06:35 Alkaline Phosphatase 33 U/L (34-104) L 12/01/16 06:35 Total Protein 5.9 gm/dL (6.0-8.3) L 12/01/16 06:35 Albumin 2.1 gm/dL (3.7-5.3) L 12/01/16 06:35 Globulin 3.8 gm/dL 12/01/16 06:35 Albumin/Globulin Ratio 0.6 (1.0-1.8) L 12/01/16 06:35 Vitamin B12 902 pg/mL (211-946) 12/01/16 10:38 Folic Acid >20.0 ng/mL (>3.0) 12/01/16 10:38 TSH 5.04 uIU/ml (0.34-5.60) 12/01/16 06:35 Urine Source CLEAN C 11/29/16 13:10 Urine Color YELLOW 11/29/16 13:10 Urine Clarity CLOUDY (CLEAR) H 11/29/16 13:10 Urine pH 5.5 11/29/16 13:10 Ur Specific [place] 1.020 (1.005-1.030) 11/29/16 13:10 Urine Protein 100 mg/dL (NEGATIVE) H 11/29/16 13:10 Urine Glucose (UA) NEGATIVE mg/dL (NEGATIVE) 11/29/16 13:10 Urine Ketones NEGATIVE mg/dL (NEGATIVE) 11/29/16 13:10 Urine Blood LARGE (NEGATIVE) H 11/29/16 13:10 Urine Nitrate NEGATIVE (NEGATIVE) 11/29/16 13:10 Urine Bilirubin NEGATIVE (NEGATIVE) 11/29/16 13:10 Urine Urobilinogen 0.2 E.U./dL (0.2 - 1.0) 11/29/16 13:10 Ur Leukocyte Esterase MODERATE (NEGATIVE) H 11/29/16 13:10 Urine RBC 25-50 /hpf (0-5) H 11/29/16 13:10 Urine WBC >100 /hpf (0-5) H 11/29/16 13:10 Ur Epithelial Cells FEW /lpf (FEW) 11/29/16 13:10 Urine Bacteria MANY /hpf (NONE SEEN) 11/29/16 13:10 Ur Random Sodium 59 mmol/L 11/30/16 16:40 Urine Creatinine 57.8 mg/dl (Not Estab.) 11/30/16 16:40 Urine Microalbumin 115.4 ug/mL (Not Estab.) 11/30/16 16:40 Microalb/Creat Ratio 199.7 mg/g creat (0.0-30.0) H 11/30/16 16:40 Stool Occult Blood NEGATIVE (NEGATIVE) 12/02/16 18:00 Valproic Acid 69.2 ug/mL (50.0-100.0) 11/28/16 21:14 Blood Type B POSITIVE 12/01/16 09:50 Antibody Screen NEGATIVE 12/01/16 09:50 Crossmatch See Detail 12/01/16 09:50 - Physical Exam Vitals and I&O: Vital Signs Temp 96.6 F 12/03/16 08:00 Pulse 82 12/03/16 08:00 Resp 18 12/03/16 08:00 BP 147/80 12/03/16 08:00 Pulse Ox 98 12/03/16 08:00 Intake & Output 12/02/16 12/03/16 12/03/16 18:59 06:59 18:59 Intake Total 8927 234 5123 Balance 0978 129 9955 Intake: Intake, IV Amount 1000 1000 Sodium Chloride 0.45% 1, 1000 1000 000 ml @ 75 mls/hr IV . [id number] [facility] Rx#:[id number] Tube Feeding 600 Other: # Voids 4 # Bowel Movements 2 Active Medications: Current Medications Acetaminophen (Tylenol) 650 mg PO Q4H PRN PRN Reason: Pain Or Fever >100 Stop: 01/28/17 10:31 Acetaminophen/Hydrocodone Bitart ([place] 5mg/325mg) 1 tab PO Q4H PRN PRN Reason: mod to severe pain Stop: 01/28/17 10:31 Al Hydrox/Mg Hydrox/Simethicone (Maalox) 30 ml PO Q4H PRN PRN Reason: GI DISTRESS Stop: 01/28/17 10:31 Albuterol/Ipratropium (Duoneb Neb) 3 ml HHN Q6HRT PRN PRN Reason: sob/copd Stop: 01/28/17 10:31 Last Admin: 11/29/16 14:57 Dose: 3 ml Amlodipine Besylate (Norvasc) 10 mg PO DAILY [facility] Stop: 01/29/17 08:59 Last Admin: 12/03/16 08:44 Dose: Not Given Divalproex Sodium (Depakote Dr) 500 mg PO TID [facility] PRN Reason: Protocol Stop: 01/28/17 13:59 Last Admin: 12/03/16 08:44 Dose: Not Given Docusate Sodium (Colace) 250 mg PO DAILY [facility] Stop: 01/28/17 13:59 Last Admin: 12/03/16 08:44 Dose: Not Given Famotidine (Pepcid) 20 mg PO HS [facility] Stop: 01/28/17 20:59 Last Admin: 12/02/16 21:52 Dose: 20 mg Ferrous Sulfate (Iron) 325 mg PO BID [facility] Stop: 01/28/17 16:59 Last Admin: 12/03/16 08:44 Dose: Not Given Folic Acid (Folate) 1 mg PO DAILY [facility] Stop: 01/28/17 13:59 Last Admin: 12/03/16 08:44 Dose: Not Given Gabapentin (Neurontin) 100 mg PO TID [facility] Stop: 01/28/17 13:59 Last Admin: 12/03/16 08:44 Dose: Not Given Heparin Sodium (Porcine) (Heparin) 5,000 units SUBQ Q12HR [facility] Stop: 01/28/17 20:59 Last Admin: 12/03/16 08:48 Dose: 5,000 units Sodium Chloride (Nacl 0.45%) 1,000 mls @ 75 mls/hr IV .[id number] [facility] Stop: 01/29/17 14:29 Last Admin: 12/03/16 11:15 Dose: 75 mls/hr Ceftriaxone Sodium 1 gm/ (Dextrose) 50 mls @ 100 mls/hr IV Q24H [facility] Stop: 01/31/17 09:59 Last Admin: 12/03/16 11:06 Dose: 100 mls/hr Levothyroxine Sodium (Synthroid) 0.05 mg PO QDAC [facility] Stop: 01/29/17 07:29 Last Admin: 12/03/16 07:47 Dose: Not Given Losartan Potassium (Cozaar) 50 mg PO DAILY [facility] Stop: 01/28/17 13:59 Last Admin: 12/03/16 08:44 Dose: Not Given Megestrol Acetate (Megace) 400 mg PO BID [facility] Stop: 01/28/17 16:59 Last Admin: 12/03/16 08:45 Dose: Not Given Memantine (Namenda) 5 mg PO BID [facility] Stop: 01/28/17 16:59 Last Admin: 12/03/16 08:45 Dose: Not Given Multivitamins/Vitamin C (Theragran) 1 tab PO DAILY [facility] Stop: 01/28/17 13:59 Last Admin: 12/03/16 08:45 Dose: Not Given Ondansetron HCl (Zofran) 4 mg IVP Q6H PRN PRN Reason: nausea and vomiting Pantoprazole Sodium (Protonix) 40 mg IVP Q12HR [facility] Stop: 01/30/17 10:44 Last Admin: 12/03/16 08:48 Dose: 40 mg Quetiapine Fumarate (Seroquel) 50 mg PO BID [facility] PRN Reason: Protocol Stop: 01/28/17 16:59 Last Admin: 12/03/16 08:48 Dose: Not Given Vitamin B Complex/Vitamin C (Vitamin B Complex W/C) 1 tab PO DAILY [facility] Stop: 01/28/17 13:59 Last Admin: 12/03/16 08:44 Dose: Not Given General: no acute distress, well developed, well nourished HEENT: atraumatic, normocephalic, PERRLA, EOMI Neck: supple Cardiovascular: S1S2, regular Lungs: clear to auscultation bilaterally, clear to percussion Abdomen: soft, no tender Extremities: no cyanosis, no clubbing, no edema Neurological: awake, alert Skin: intact - Procedures Procedures: Procedures Procedure Code Date EGD BIOPSY SINGLE/MULTIPLE 40803 11/28/16 EXCISION OF DUODENUM, ENDO, DIAGN [id number] 11/28/16 EXCISION OF STOMACH, ENDO, DIAGN [id number] 11/28/16 Infectious Disease Assmt/Plan - Problem List Patient Problems: All Active Problems Anemia (Acute) D64.9 Esophagitis (Acute) K20.9 Esophagitis (Acute) K20.9 Gastritis (Acute) K29.70 Gastritis (Acute) K29.70 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 UTI. E coli. 2. Psychosis. 3. Protein calorie malnutrition. 4. COPD. - Plan Plan: Change antibiotics to rocephin for 4 days.
--- NOTE | 2016-12-03 14:40 | General Progress Note ---
Subjective - Review of Systems Service Date: 12/03/16 Subjective: awake, more quiet today Objective - Results Result Diagrams: 12/03/16 07:00 12/03/16 07:00 Recent Labs: Laboratory Last Values WBC 5.7 Th/cmm (4.8-10.8) 12/03/16 07:00 RBC 3.96 Mil/cmm (3.80-5.20) 12/03/16 07:00 Hgb 12.2 gm/dL (11.7-16.1) 12/03/16 07:00 Hct 35.6 % (35.0-45.0) 12/03/16 07:00 MCV 90.0 fl (81-100) 12/03/16 07:00 MCH 30.9 pg (27.0-31.0) 12/03/16 07:00 MCHC Differential 34.4 pg (28.0-36.0) 12/03/16 07:00 RDW 15.8 % (11.5-20.0) 12/03/16 07:00 Plt Count 86 Th/cmm (150-400) L 12/03/16 07:00 MPV 7.4 fl 12/03/16 07:00 Neutrophils % 59.1 % (40.0-80.0) 12/03/16 07:00 Band Neutrophils % 5 % (0-10) 12/01/16 06:35 Lymphocytes % 31.8 % (20.0-50.0) 12/03/16 07:00 Monocytes % 8.4 % (2.0-10.0) 12/03/16 07:00 Eosinophils % 0.4 % (0.0-5.0) 12/03/16 07:00 Basophils % 0.3 % (0.0-2.0) 12/03/16 07:00 Neutrophils (Manual) 44 % (40-80) 12/01/16 06:35 Lymphocytes 47 % (20-50) 12/01/16 06:35 Monocytes 4 % (2-10) 12/01/16 06:35 Platelet Estimate DECREASED PLATELETS (NORMAL) 12/01/16 06:35 Platelet Morphology GIANT PLATELETS SEEN (NORMAL) 12/01/16 06:35 Anisocytosis 1+ 12/01/16 06:35 RBC Morph Micro Appear ABNORMAL (NORMAL) 12/01/16 06:35 Total Retics Counted 2.2 % (0.5-1.5) H 12/01/16 10:38 Absolute Retic 46.4 Th/cmm 12/01/16 10:38 Corrected Retic Count 1.0 % (0.5-1.5) 12/01/16 10:38 Eos Smear Source URINE 11/30/16 16:40 Eos Smear Total Cells MODERATE EOS. SEEN (NONE SEEN) 11/30/16 16:40 Haptoglobin 163 mg/dL (34-200) 12/01/16 10:38 PT 11.2 SECONDS (9.5-11.5) 12/03/16 07:00 INR 1.08 (0.5-1.4) 12/03/16 07:00 PTT (Actin FS) 28.0 SECONDS (26.0-38.0) 11/28/16 21:14 Sodium 131 mEq/L (136-145) L 12/03/16 07:00 Potassium 3.2 mEq/L (3.5-5.1) L 12/03/16 07:00 Chloride 105 mEq/L (98-107) 12/03/16 07:00 Carbon Dioxide 18.5 mEq/L (21.0-31.0) L 12/03/16 07:00 Anion Gap 10.7 (7.0-16.0) 12/03/16 07:00 BUN 27 mg/dL (7-25) H 12/03/16 07:00 Creatinine 0.9 mg/dL (0.6-1.2) 12/03/16 07:00 Est GFR ( Amer) TNP 12/03/16 07:00 Est GFR (Non-Af Amer) TNP 12/03/16 07:00 BUN/Creatinine Ratio 30.0 12/03/16 07:00 Glucose 76 mg/dL (70-105) 12/03/16 07:00 Uric Acid 7.1 mg/dL (2.3-6.6) H 12/01/16 06:35 Calcium 8.8 mg/dL (8.6-10.3) 12/03/16 07:00 Phosphorus 2.8 mg/dL (2.5-5.0) 12/01/16 06:35 Magnesium 1.8 mg/dL (1.9-2.7) L 12/02/16 07:22 Iron 60 ug/dL (27-139) 12/01/16 10:38 TIBC 192 ug/dL (250-450) L 12/01/16 10:38 Iron Saturation 31 % (15-55) 12/01/16 10:38 Unsaturated IBC 132 ug/dL (118-369) 12/01/16 10:38 Ferritin 307 ng/mL (15-150) H 12/01/16 10:38 Total Bilirubin 0.2 mg/dL (0.3-1.0) L 12/01/16 06:35 AST 12 U/L (13-39) L 12/01/16 06:35 ALT < 3 U/L (7-52) L 12/01/16 06:35 Alkaline Phosphatase 33 U/L (34-104) L 12/01/16 06:35 Total Protein 5.9 gm/dL (6.0-8.3) L 12/01/16 06:35 Albumin 2.1 gm/dL (3.7-5.3) L 12/01/16 06:35 Globulin 3.8 gm/dL 12/01/16 06:35 Albumin/Globulin Ratio 0.6 (1.0-1.8) L 12/01/16 06:35 Vitamin B12 902 pg/mL (211-946) 12/01/16 10:38 Folic Acid >20.0 ng/mL (>3.0) 12/01/16 10:38 TSH 5.04 uIU/ml (0.34-5.60) 12/01/16 06:35 Urine Source CLEAN C 11/29/16 13:10 Urine Color YELLOW 11/29/16 13:10 Urine Clarity CLOUDY (CLEAR) H 11/29/16 13:10 Urine pH 5.5 11/29/16 13:10 Ur Specific [place] 1.020 (1.005-1.030) 11/29/16 13:10 Urine Protein 100 mg/dL (NEGATIVE) H 11/29/16 13:10 Urine Glucose (UA) NEGATIVE mg/dL (NEGATIVE) 11/29/16 13:10 Urine Ketones NEGATIVE mg/dL (NEGATIVE) 11/29/16 13:10 Urine Blood LARGE (NEGATIVE) H 11/29/16 13:10 Urine Nitrate NEGATIVE (NEGATIVE) 11/29/16 13:10 Urine Bilirubin NEGATIVE (NEGATIVE) 11/29/16 13:10 Urine Urobilinogen 0.2 E.U./dL (0.2 - 1.0) 11/29/16 13:10 Ur Leukocyte Esterase MODERATE (NEGATIVE) H 11/29/16 13:10 Urine RBC 25-50 /hpf (0-5) H 11/29/16 13:10 Urine WBC >100 /hpf (0-5) H 11/29/16 13:10 Ur Epithelial Cells FEW /lpf (FEW) 11/29/16 13:10 Urine Bacteria MANY /hpf (NONE SEEN) 11/29/16 13:10 Ur Random Sodium 59 mmol/L 11/30/16 16:40 Urine Creatinine 57.8 mg/dl (Not Estab.) 11/30/16 16:40 Urine Microalbumin 115.4 ug/mL (Not Estab.) 11/30/16 16:40 Microalb/Creat Ratio 199.7 mg/g creat (0.0-30.0) H 11/30/16 16:40 Stool Occult Blood NEGATIVE (NEGATIVE) 12/02/16 18:00 Valproic Acid 69.2 ug/mL (50.0-100.0) 11/28/16 21:14 Helicobacter pylori Ab NEGATIVE (NEGATIVE) 12/02/16 12:33 Blood Type B POSITIVE 12/01/16 09:50 Antibody Screen NEGATIVE 12/01/16 09:50 Crossmatch See Detail 12/01/16 09:50 - Physical Exam Vitals and I&O: Vital Signs Temp 96.8 F 12/03/16 12:00 Pulse 71 12/03/16 12:00 Resp 18 12/03/16 12:00 BP 141/73 12/03/16 12:00 Pulse Ox 97 12/03/16 12:00 Intake & Output 12/02/16 12/03/16 12/03/16 18:59 06:59 18:59 Intake Total 9098 956 5348 Balance 2051 042 8784 Intake: Intake, IV Amount 1000 1000 Sodium Chloride 0.45% 1, 1000 1000 000 ml @ 75 mls/hr IV . [id number] [facility] Rx#:[id number] Tube Feeding 600 Other: # Voids 4 # Bowel Movements 2 Active Medications: Current Medications Acetaminophen (Tylenol) 650 mg PO Q4H PRN PRN Reason: Pain Or Fever >100 Stop: 01/28/17 10:31 Acetaminophen/Hydrocodone Bitart ([place] 5mg/325mg) 1 tab PO Q4H PRN PRN Reason: mod to severe pain Stop: 01/28/17 10:31 Al Hydrox/Mg Hydrox/Simethicone (Maalox) 30 ml PO Q4H PRN PRN Reason: GI DISTRESS Stop: 01/28/17 10:31 Albuterol/Ipratropium (Duoneb Neb) 3 ml HHN Q6HRT PRN PRN Reason: sob/copd Stop: 01/28/17 10:31 Last Admin: 11/29/16 14:57 Dose: 3 ml Amlodipine Besylate (Norvasc) 10 mg PO DAILY [facility] Stop: 01/29/17 08:59 Last Admin: 12/03/16 08:44 Dose: Not Given Divalproex Sodium (Depakote Dr) 500 mg PO TID [facility] PRN Reason: Protocol Stop: 01/28/17 13:59 Last Admin: 12/03/16 13:51 Dose: Not Given Docusate Sodium (Colace) 250 mg PO DAILY [facility] Stop: 01/28/17 13:59 Last Admin: 12/03/16 08:44 Dose: Not Given Famotidine (Pepcid) 20 mg PO HS [facility] Stop: 01/28/17 20:59 Last Admin: 12/02/16 21:52 Dose: 20 mg Ferrous Sulfate (Iron) 325 mg PO BID [facility] Stop: 01/28/17 16:59 Last Admin: 12/03/16 08:44 Dose: Not Given Folic Acid (Folate) 1 mg PO DAILY [facility] Stop: 01/28/17 13:59 Last Admin: 12/03/16 08:44 Dose: Not Given Gabapentin (Neurontin) 100 mg PO TID [facility] Stop: 01/28/17 13:59 Last Admin: 12/03/16 13:51 Dose: Not Given Heparin Sodium (Porcine) (Heparin) 5,000 units SUBQ Q12HR [facility] Stop: 01/28/17 20:59 Last Admin: 12/03/16 08:48 Dose: 5,000 units Sodium Chloride (Nacl 0.45%) 1,000 mls @ 75 mls/hr IV .[id number] [facility] Stop: 01/29/17 14:29 Last Admin: 12/03/16 11:15 Dose: 75 mls/hr Ceftriaxone Sodium 1 gm/ (Dextrose) 50 mls @ 100 mls/hr IV Q24H [facility] Stop: 01/31/17 09:59 Last Admin: 12/03/16 11:06 Dose: 100 mls/hr Levothyroxine Sodium (Synthroid) 0.05 mg PO QDAC [facility] Stop: 01/29/17 07:29 Last Admin: 12/03/16 07:47 Dose: Not Given Losartan Potassium (Cozaar) 50 mg PO DAILY [facility] Stop: 01/28/17 13:59 Last Admin: 12/03/16 08:44 Dose: Not Given Megestrol Acetate (Megace) 400 mg PO BID [facility] Stop: 01/28/17 16:59 Last Admin: 12/03/16 08:45 Dose: Not Given Memantine (Namenda) 5 mg PO BID [facility] Stop: 01/28/17 16:59 Last Admin: 12/03/16 08:45 Dose: Not Given Multivitamins/Vitamin C (Theragran) 1 tab PO DAILY [facility] Stop: 01/28/17 13:59 Last Admin: 12/03/16 08:45 Dose: Not Given Ondansetron HCl (Zofran) 4 mg IVP Q6H PRN PRN Reason: nausea and vomiting Pantoprazole Sodium (Protonix) 40 mg IVP Q12HR [facility] Stop: 01/30/17 10:44 Last Admin: 12/03/16 08:48 Dose: 40 mg Potassium Chloride (Klor-Con) 20 meq PO X1 ONE Stop: 12/03/16 14:35 Quetiapine Fumarate (Seroquel) 50 mg PO BID [facility] PRN Reason: Protocol Stop: 01/28/17 16:59 Last Admin: 12/03/16 08:48 Dose: Not Given Sodium Bicarbonate (Sodium Bicarbonate) 650 mg PO BID [facility] PRN Reason: Protocol Stop: 02/01/17 16:59 Vitamin B Complex/Vitamin C (Vitamin B Complex W/C) 1 tab PO DAILY [facility] Stop: 01/28/17 13:59 Last Admin: 12/03/16 08:44 Dose: Not Given General: Alert, No acute distress HEENT: Atraumatic, EOMI, Mucous membr. moist/pink Neck: +2 carotid pulse wo bruit Cardiovascular: Regular rate, Normal S1, Normal S2 Lungs: Clear to auscultation Abdomen: Bowel sounds, Soft Extremities: no Edema Neurological: Sensation intact Skin: no Rash Psych/Mental Status: Other (less agitated) - Procedures Procedures: Procedures Procedure Code Date EGD BIOPSY SINGLE/MULTIPLE 44050 11/28/16 EXCISION OF DUODENUM, ENDO, DIAGN [id number] 11/28/16 EXCISION OF STOMACH, ENDO, DIAGN [id number] 11/28/16 Assessment/Plan - Problem List Patient Problems: All Active Problems Anemia (Acute) D64.9 Esophagitis (Acute) K20.9 Esophagitis (Acute) K20.9 Gastritis (Acute) K29.70 Gastritis (Acute) K29.70 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 - Assessment Assessment: SILVIA Anemia acute on CD Psychosis FTT PUD COPD hypothyroid Epilepsy Cx UTI - Plan Plan: Lab - Result Diagrams 12/01/16 10:38 12/01/16 06:35 Current Medications Acetaminophen (Tylenol) 650 mg PO Q4H PRN PRN Reason: Pain Or Fever >100 Stop: 01/28/17 10:31 Acetaminophen/Hydrocodone Bitart ([place] 5mg/325mg) 1 tab PO Q4H PRN PRN Reason: mod to severe pain Stop: 01/28/17 10:31 Al Hydrox/Mg Hydrox/Simethicone (Maalox) 30 ml PO Q4H PRN PRN Reason: GI DISTRESS Stop: 01/28/17 10:31 Albuterol/Ipratropium (Duoneb Neb) 3 ml HHN Q6HRT PRN PRN Reason: sob/copd Stop: 01/28/17 10:31 Last Admin: 11/29/16 14:57 Dose: 3 ml Amlodipine Besylate (Norvasc) 10 mg PO DAILY [facility] Stop: 01/29/17 08:59 Last Admin: 12/01/16 09:12 Dose: Not Given Divalproex Sodium (Depakote Dr) 500 mg PO TID [facility] PRN Reason: Protocol Stop: 01/28/17 13:59 Last Admin: 12/01/16 09:08 Dose: 500 mg Docusate Sodium (Colace) 250 mg PO DAILY [facility] Stop: 01/28/17 13:59 Last Admin: 12/01/16 09:09 Dose: 250 mg Famotidine (Pepcid) 20 mg PO HS [facility] Stop: 01/28/17 20:59 Last Admin: 11/30/16 20:40 Dose: 20 mg Ferrous Sulfate (Iron) 325 mg PO BID [facility] Stop: 01/28/17 16:59 Last Admin: 12/01/16 09:09 Dose: 325 mg Folic Acid (Folate) 1 mg PO DAILY [facility] Stop: 01/28/17 13:59 Last Admin: 12/01/16 09:09 Dose: 1 mg Gabapentin (Neurontin) 100 mg PO TID [facility] Stop: 01/28/17 13:59 Last Admin: 12/01/16 09:09 Dose: 100 mg Heparin Sodium (Porcine) (Heparin) 5,000 units SUBQ Q12HR RENZO Stop: 01/28/17 20:59 Last Admin: 12/01/16 09:10 Dose: 5,000 units Sodium Chloride (Nacl 0.45%) 1,000 mls @ 75 mls/hr IV .[id number] RENZO Stop: 01/29/17 14:29 Last Admin: 12/01/16 04:39 Dose: 75 mls/hr Levofloxacin (Levaquin) 250 mg PO DAILY RENZO Stop: 01/30/17 08:59 Last Admin: 12/01/16 09:09 Dose: 250 mg Levothyroxine Sodium (Synthroid) 0.05 mg PO QDAC RENZO Stop: 01/29/17 07:29 Last Admin: 12/01/16 06:31 Dose: 0.05 mg Losartan Potassium (Cozaar) 50 mg PO DAILY RENZO Stop: 01/28/17 13:59 Last Admin: 12/01/16 09:10 Dose: 50 mg Megestrol Acetate (Megace) 400 mg PO BID RENZO Stop: 01/28/17 16:59 Last Admin: 12/01/16 09:10 Dose: 400 mg Memantine (Namenda) 5 mg PO BID RENZO Stop: 01/28/17 16:59 Last Admin: 12/01/16 09:10 Dose: 5 mg Multivitamins/Vitamin C (Theragran) 1 tab PO DAILY [facility] Stop: 01/28/17 13:59 Last Admin: 12/01/16 09:10 Dose: 1 tab Ondansetron HCl (Zofran) 4 mg IVP Q6H PRN PRN Reason: nausea and vomiting Pantoprazole Sodium (Protonix) 40 mg IVP Q12HR [facility] Stop: 01/30/17 10:44 Last Admin: 12/01/16 10:54 Dose: 40 mg Quetiapine Fumarate (Seroquel) 50 mg PO BID RENZO PRN Reason: Protocol Stop: 01/28/17 16:59 Last Admin: 12/01/16 09:10 Dose: 50 mg Vitamin B Complex/Vitamin C (Vitamin B Complex W/C) 1 tab PO DAILY [facility] Stop: 01/28/17 13:59 Last Admin: 12/01/16 09:11 Dose: 1 tab kidney fnc improving w/ BUN/CR of 27/0.9 continue ivf agree w/ K replacement for transfusion today due to sudden drop in HGB/HCT, but no obvious bleed per EGD EGD result noted f/u electroytes Nutritional Asmnt/Malnutr-PDOC - Dietary Evaluation Malnutrition Findings (Please click <Entered> for more info): Nutritional Asmnt/Malnutrition Start: 12/03/16 12: 26 Text: Status: Complete Freq: Document 12/03/16 12:26 GSUN (Rec: 12/03/16 12:51 GSUN [id number]) Nutritional Asmnt/Malnutrition Patient General Information Nutritional Screening High Risk Screening Diagnosis Acute aenmia, acute renal failure, failrue to thrive, severe malnutrition Pertinent Medical Hx/Surgical Hx Peptic ulcer disease, hypothyroidism, polyneuripathy , seizures, renal failure, nephritis, COPD, GI cleeding, metabolic encephalopathy, pancytopenia, depression, psychosis Subjective Information 71 year old female. Pt was agitated, yelling her knee hurts, then yelled at RD to leave the room, unable to interview. Pt with blanket up to neck, along with agitation, unable to complete physical assessment. Calorie count started on 11/30 for 3 days. Pt was on pureed diet for 4 meals, avg 1108kcal and 75g protein per day, meeting 78% of lower end kcal and 100% prot needs. Pt was on clear/ NPO on other days for EGD. EGD: gastritis, erosions and hiatal hernia, distal esophagitis. Unable to obtain CBW, bedscale on special setting. Current Diet Order/ Nutrition Support NPO Pertinent Medications Colace, Pepcid, Iron, Folate, Synthroid, Megace, Theragran, Zofran, Protnix, Seroquel, Vitamin C Comple w/ C Pertinent Labs 11/28: Potassium 6.1H, BUN 54H, creatinine 1.7H 12/03: potassium 3.2L (improved ), BUN 27H (improved), creatinine 0.9 (improved) Nutritional Hx/Data Height 1.57 m Height (Calculated Centimeters) 157.5 Current Weight (lbs) 47.174 kg Weight (Calculated Kilograms) 47.2 Weight (Calculated Grams) 93739.6 [place] Body Weight 110 Weight Status Approriate GI Symptoms Skin Integrity/Comment: Aaron Finch. venetian blind maker: R lateral ankle decubitus includes bone Estimated Nutritional Goals BEE in Kcals: Using Current wt Calories/Kcals/Kg CBW 47.2kg Kcals Calculated 1416-1652kcal (30-35kcal/kg, H &P: FTT, severe malnutrition) Protein: Using Current wt Protein Calculated 61-71g (1.2-1.5g/kg) Fluid: ml 1416-1652ml (1ml/kcal) Nutritional Problem 1. Problem Problem Altered GI functions related to Etiology gastritis, erosions and hiatal hernia, distal esophagitis aeb Signs/Symptoms: EGD results, clear/NPO for past 2 days Intervention/Recommendation Comments 1. Advance diet back to pureed per GI and as tolerated. 2. Calorie count averaged 1108kcal and 75g protein per day on days pt received pureed diet, meeting 78% of lower end kcal and 100% prot needs. Please see detailed calorie count results under notes. Expected Outcomes/Goals Expected Outcomes/Goals 1. Resume PO intake, pt to meet at least 75% of estimated nutritional needs.
[2016-12-03] MEDS ORDERED: Potassium Chloride 20 mEq ER Tab PO ONE (15:15)
[2016-12-04] MEDS: Sodium Chloride 0.45% 1,000 ML IV SCH (02:55)
[2016-12-04] MEDS: Levothyroxine 0.05 Mg Tab PO SCH (07:06)
[2016-12-04 07:52] LABS: BUN - UREA NITROGEN 16 mg/dL (7-25); BUN/CREATININE RATIO 17.8; CALCIUM SERUM 8.8 mg/dL (8.6-10.3); CARBON DIOXIDE 20.1 mEq/L (21.0-31.0); CHLORIDE 104 mEq/L (98-107); CREATININE - SERUM 0.9 mg/dL (0.6-1.2); GLUCOSE 62 mg/dL (70-105); MAGNESIUM 1.5 mg/dL (1.9-2.7); POTASSIUM SERUM 3.1 mEq/L (3.5-5.1); SODIUM SERUM 134 mEq/L (136-145)
--- NOTE | 2016-12-04 08:20 | Diagnostic Imaging Report ---
KUB abdominal film HISTORY: Nasogastric tube placement, pain A nasogastric tube projects in the region of the stomach. There is a nonspecific gas pattern of nondilated bowel. No free intraperitoneal air. Vascular calcification noted. Left hip prosthesis is seen. IMPRESSION: 1. Nasogastric tube projecting over the stomach 2. Nonspecific bowel gas pattern of nondilated bowel
--- NOTE | 2016-12-04 08:45 | General Progress Note ---
Subjective - Review of Systems Events since last encounter: no distress Subjective: pt is weak c/o no pain urine e coli pt had egd shoes gastrtitis and esophagitis hb is 12 now Objective - Results Result Diagrams: 12/03/16 07:00 12/04/16 07:00 Recent Labs: Laboratory Last Values WBC 5.7 Th/cmm (4.8-10.8) 12/03/16 07:00 RBC 3.96 Mil/cmm (3.80-5.20) 12/03/16 07:00 Hgb 12.2 gm/dL (11.7-16.1) 12/03/16 07:00 Hct 35.6 % (35.0-45.0) 12/03/16 07:00 MCV 90.0 fl (81-100) 12/03/16 07:00 MCH 30.9 pg (27.0-31.0) 12/03/16 07:00 MCHC Differential 34.4 pg (28.0-36.0) 12/03/16 07:00 RDW 15.8 % (11.5-20.0) 12/03/16 07:00 Plt Count 86 Th/cmm (150-400) L 12/03/16 07:00 MPV 7.4 fl 12/03/16 07:00 Neutrophils % 59.1 % (40.0-80.0) 12/03/16 07:00 Band Neutrophils % 5 % (0-10) 12/01/16 06:35 Lymphocytes % 31.8 % (20.0-50.0) 12/03/16 07:00 Monocytes % 8.4 % (2.0-10.0) 12/03/16 07:00 Eosinophils % 0.4 % (0.0-5.0) 12/03/16 07:00 Basophils % 0.3 % (0.0-2.0) 12/03/16 07:00 Neutrophils (Manual) 44 % (40-80) 12/01/16 06:35 Lymphocytes 47 % (20-50) 12/01/16 06:35 Monocytes 4 % (2-10) 12/01/16 06:35 Platelet Estimate DECREASED PLATELETS (NORMAL) 12/01/16 06:35 Platelet Morphology GIANT PLATELETS SEEN (NORMAL) 12/01/16 06:35 Anisocytosis 1+ 12/01/16 06:35 RBC Morph Micro Appear ABNORMAL (NORMAL) 12/01/16 06:35 Total Retics Counted 2.2 % (0.5-1.5) H 12/01/16 10:38 Absolute Retic 46.4 Th/cmm 12/01/16 10:38 Corrected Retic Count 1.0 % (0.5-1.5) 12/01/16 10:38 Eos Smear Source URINE 11/30/16 16:40 Eos Smear Total Cells MODERATE EOS. SEEN (NONE SEEN) 11/30/16 16:40 Haptoglobin 163 mg/dL (34-200) 12/01/16 10:38 PT 11.2 SECONDS (9.5-11.5) 12/03/16 07:00 INR 1.08 (0.5-1.4) 12/03/16 07:00 PTT (Actin FS) 28.0 SECONDS (26.0-38.0) 11/28/16 21:14 Sodium 134 mEq/L (136-145) L 12/04/16 07:00 Potassium 3.1 mEq/L (3.5-5.1) L 12/04/16 07:00 Chloride 104 mEq/L (98-107) 12/04/16 07:00 Carbon Dioxide 20.1 mEq/L (21.0-31.0) L 12/04/16 07:00 Anion Gap 13.0 (7.0-16.0) 12/04/16 07:00 BUN 16 mg/dL (7-25) 12/04/16 07:00 Creatinine 0.9 mg/dL (0.6-1.2) 12/04/16 07:00 Est GFR ( Amer) TNP 12/04/16 07:00 Est GFR (Non-Af Amer) TNP 12/04/16 07:00 BUN/Creatinine Ratio 17.8 12/04/16 07:00 Glucose 62 mg/dL (70-105) L 12/04/16 07:00 Uric Acid 7.1 mg/dL (2.3-6.6) H 12/01/16 06:35 Calcium 8.8 mg/dL (8.6-10.3) 12/04/16 07:00 Phosphorus 2.8 mg/dL (2.5-5.0) 12/01/16 06:35 Magnesium 1.5 mg/dL (1.9-2.7) L 12/04/16 07:00 Iron 60 ug/dL (27-139) 12/01/16 10:38 TIBC 192 ug/dL (250-450) L 12/01/16 10:38 Iron Saturation 31 % (15-55) 12/01/16 10:38 Unsaturated IBC 132 ug/dL (118-369) 12/01/16 10:38 Ferritin 307 ng/mL (15-150) H 12/01/16 10:38 Total Bilirubin 0.2 mg/dL (0.3-1.0) L 12/01/16 06:35 AST 12 U/L (13-39) L 12/01/16 06:35 ALT < 3 U/L (7-52) L 12/01/16 06:35 Alkaline Phosphatase 33 U/L (34-104) L 12/01/16 06:35 Total Protein 5.9 gm/dL (6.0-8.3) L 12/01/16 06:35 Albumin 2.1 gm/dL (3.7-5.3) L 12/01/16 06:35 Globulin 3.8 gm/dL 12/01/16 06:35 Albumin/Globulin Ratio 0.6 (1.0-1.8) L 12/01/16 06:35 Vitamin B12 902 pg/mL (211-946) 12/01/16 10:38 Folic Acid >20.0 ng/mL (>3.0) 12/01/16 10:38 TSH 5.04 uIU/ml (0.34-5.60) 12/01/16 06:35 Urine Source CLEAN C 11/29/16 13:10 Urine Color YELLOW 11/29/16 13:10 Urine Clarity CLOUDY (CLEAR) H 11/29/16 13:10 Urine pH 5.5 11/29/16 13:10 Ur Specific [place] 1.020 (1.005-1.030) 11/29/16 13:10 Urine Protein 100 mg/dL (NEGATIVE) H 11/29/16 13:10 Urine Glucose (UA) NEGATIVE mg/dL (NEGATIVE) 11/29/16 13:10 Urine Ketones NEGATIVE mg/dL (NEGATIVE) 11/29/16 13:10 Urine Blood LARGE (NEGATIVE) H 11/29/16 13:10 Urine Nitrate NEGATIVE (NEGATIVE) 11/29/16 13:10 Urine Bilirubin NEGATIVE (NEGATIVE) 11/29/16 13:10 Urine Urobilinogen 0.2 E.U./dL (0.2 - 1.0) 11/29/16 13:10 Ur Leukocyte Esterase MODERATE (NEGATIVE) H 11/29/16 13:10 Urine RBC 25-50 /hpf (0-5) H 11/29/16 13:10 Urine WBC >100 /hpf (0-5) H 11/29/16 13:10 Ur Epithelial Cells FEW /lpf (FEW) 11/29/16 13:10 Urine Bacteria MANY /hpf (NONE SEEN) 11/29/16 13:10 Ur Random Sodium 59 mmol/L 11/30/16 16:40 Urine Creatinine 57.8 mg/dl (Not Estab.) 11/30/16 16:40 Urine Microalbumin 115.4 ug/mL (Not Estab.) 11/30/16 16:40 Microalb/Creat Ratio 199.7 mg/g creat (0.0-30.0) H 11/30/16 16:40 Stool Occult Blood NEGATIVE (NEGATIVE) 12/02/16 18:00 Valproic Acid 69.2 ug/mL (50.0-100.0) 11/28/16 21:14 Helicobacter pylori Ab NEGATIVE (NEGATIVE) 12/02/16 12:33 Blood Type B POSITIVE 12/01/16 09:50 Antibody Screen NEGATIVE 12/01/16 09:50 Crossmatch See Detail 12/01/16 09:50 - Physical Exam Vitals and I&O: Vital Signs Temp 98.2 F 12/04/16 06:00 Pulse 81 12/04/16 08:10 Resp 18 12/04/16 08:10 BP 148/61 12/04/16 06:00 Pulse Ox 98 12/04/16 08:10 Intake & Output 12/03/16 12/04/16 12/04/16 18:59 06:59 18:59 Intake Total 1050 5000 Balance 1050 5000 Intake: Intake, IV Amount 1050 1000 Sodium Chloride 0.45% 1, 1000 1000 000 ml @ 75 mls/hr IV . [id number] [facility] Rx#:[id number] cefTRIAXone 1 gm In 50 Dextrose 5% 50 ml @ 100 mls/hr IV Q24H [facility] Rx#: [id number] Tube Feeding 4000 Other: # Voids 5 # Bowel Movements 8 Active Medications: Current Medications Acetaminophen (Tylenol) 650 mg PO Q4H PRN PRN Reason: Pain Or Fever >100 Stop: 01/28/17 10:31 Acetaminophen/Hydrocodone Bitart ([place] 5mg/325mg) 1 tab PO Q4H PRN PRN Reason: mod to severe pain Stop: 01/28/17 10:31 Al Hydrox/Mg Hydrox/Simethicone (Maalox) 30 ml PO Q4H PRN PRN Reason: GI DISTRESS Stop: 01/28/17 10:31 Albuterol/Ipratropium (Duoneb Neb) 3 ml HHN Q6HRT PRN PRN Reason: sob/copd Stop: 01/28/17 10:31 Last Admin: 11/29/16 14:57 Dose: 3 ml Amlodipine Besylate (Norvasc) 10 mg PO DAILY [facility] Stop: 01/29/17 08:59 Last Admin: 12/03/16 08:44 Dose: Not Given Divalproex Sodium (Depakote Dr) 500 mg PO TID RENZO PRN Reason: Protocol Stop: 01/28/17 13:59 Last Admin: 12/03/16 22:22 Dose: 500 mg Docusate Sodium (Colace) 250 mg PO DAILY [facility] Stop: 01/28/17 13:59 Last Admin: 12/03/16 08:44 Dose: Not Given Famotidine (Pepcid) 20 mg PO HS [facility] Stop: 01/28/17 20:59 Last Admin: 12/03/16 22:22 Dose: 20 mg Ferrous Sulfate (Iron) 325 mg PO BID [facility] Stop: 01/28/17 16:59 Last Admin: 12/03/16 16:54 Dose: 325 mg Folic Acid (Folate) 1 mg PO DAILY [facility] Stop: 01/28/17 13:59 Last Admin: 12/03/16 08:44 Dose: Not Given Gabapentin (Neurontin) 100 mg PO TID [facility] Stop: 01/28/17 13:59 Last Admin: 12/03/16 22:22 Dose: 100 mg Heparin Sodium (Porcine) (Heparin) 5,000 units SUBQ Q12HR [facility] Stop: 01/28/17 20:59 Last Admin: 12/03/16 22:22 Dose: 5,000 units Sodium Chloride (Nacl 0.45%) 1,000 mls @ 75 mls/hr IV .[id number] [facility]ENOZ Stop: 01/29/17 14:29 Last Admin: 12/04/16 02:55 Dose: 75 mls/hr Ceftriaxone Sodium 1 gm/ (Dextrose) 50 mls @ 100 mls/hr IV Q24H [facility] Stop: 01/31/17 09:59 Last Infusion: 12/03/16 12:10 Dose: Infused Levothyroxine Sodium (Synthroid) 0.05 mg PO QDAC [facility] Stop: 01/29/17 07:29 Last Admin: 12/04/16 07:06 Dose: Not Given Losartan Potassium (Cozaar) 50 mg PO DAILY [facility] Stop: 01/28/17 13:59 Last Admin: 12/03/16 08:44 Dose: Not Given Megestrol Acetate (Megace) 400 mg PO BID [facility] Stop: 01/28/17 16:59 Last Admin: 12/03/16 17:30 Dose: Not Given Memantine (Namenda) 5 mg PO BID [facility] Stop: 01/28/17 16:59 Last Admin: 12/03/16 16:54 Dose: 5 mg Multivitamins/Vitamin C (Theragran) 1 tab PO DAILY [facility] Stop: 01/28/17 13:59 Last Admin: 12/03/16 08:45 Dose: Not Given Ondansetron HCl (Zofran) 4 mg IVP Q6H PRN PRN Reason: nausea and vomiting Pantoprazole Sodium (Protonix) 40 mg IVP Q12HR [facility] Stop: 01/30/17 10:44 Last Admin: 12/03/16 22:22 Dose: 40 mg Quetiapine Fumarate (Seroquel) 50 mg PO BID RENZO PRN Reason: Protocol Stop: 01/28/17 16:59 Last Admin: 12/03/16 16:54 Dose: 50 mg Sodium Bicarbonate (Sodium Bicarbonate) 650 mg PO BID RENZO PRN Reason: Protocol Stop: 02/01/17 16:59 Last Admin: 12/03/16 16:54 Dose: 650 mg Vitamin B Complex/Vitamin C (Vitamin B Complex W/C) 1 tab PO DAILY [facility] Stop: 01/28/17 13:59 Last Admin: 12/03/16 08:44 Dose: Not Given - Procedures Procedures: Procedures Procedure Code Date EGD BIOPSY SINGLE/MULTIPLE 12057 11/28/16 EXCISION OF DUODENUM, ENDO, DIAGN [id number] 11/28/16 EXCISION OF STOMACH, ENDO, DIAGN [id number] 11/28/16 Assessment/Plan - Problem List Patient Problems: All Active Problems Anemia (Acute) D64.9 Esophagitis (Acute) K20.9 Esophagitis (Acute) K20.9 Gastritis (Acute) K29.70 Gastritis (Acute) K29.70 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 Nutritional Asmnt/Malnutr-PDOC - Dietary Evaluation Malnutrition Findings (Please click <Entered> for more info): Nutritional Asmnt/Malnutrition Start: 12/03/16 12: 26 Text: Status: Complete Freq: Document 12/03/16 12:26 GSUN (Rec: 12/03/16 12:51 GSUN [id number]) Nutritional Asmnt/Malnutrition Patient General Information Nutritional Screening High Risk Screening Diagnosis Acute aenmia, acute renal failure, failrue to thrive, severe malnutrition Pertinent Medical Hx/Surgical Hx Peptic ulcer disease, hypothyroidism, polyneuripathy , seizures, renal failure, nephritis, COPD, GI cleeding, metabolic encephalopathy, pancytopenia, depression, psychosis Subjective Information 71 year old female. Pt was agitated, yelling her knee hurts, then yelled at RD to leave the room, unable to interview. Pt with blanket up to neck, along with agitation, unable to complete physical assessment. Calorie count started on 11/30 for 3 days. Pt was on pureed diet for 4 meals, avg 1108kcal and 75g protein per day, meeting 78% of lower end kcal and 100% prot needs. Pt was on clear/ NPO on other days for EGD. EGD: gastritis, erosions and hiatal hernia, distal esophagitis. Unable to obtain CBW, bedscale on special setting. Current Diet Order/ Nutrition Support NPO Pertinent Medications Colace, Pepcid, Iron, Folate, Synthroid, Megace, Theragran, Zofran, Protnix, Seroquel, Vitamin C Comple w/ C Pertinent Labs 11/28: Potassium 6.1H, BUN 54H, creatinine 1.7H 12/03: potassium 3.2L (improved ), BUN 27H (improved), creatinine 0.9 (improved) Nutritional Hx/Data Height 1.57 m Height (Calculated Centimeters) 157.5 Current Weight (lbs) 47.174 kg Weight (Calculated Kilograms) 47.2 Weight (Calculated Grams) 30407.6 [place] Body Weight 110 Weight Status Approriate GI Symptoms Skin Integrity/Comment: Aaron 15. quantitative researcher: R lateral ankle decubitus includes bone Estimated Nutritional Goals BEE in Kcals: Using Current wt Calories/Kcals/Kg CBW 47.2kg Kcals Calculated 1416-1652kcal (30-35kcal/kg, H &P: FTT, severe malnutrition) Protein: Using Current wt Protein Calculated 61-71g (1.2-1.5g/kg) Fluid: ml 1416-1652ml (1ml/kcal) Nutritional Problem 1. Problem Problem Altered GI functions related to Etiology gastritis, erosions and hiatal hernia, distal esophagitis aeb Signs/Symptoms: EGD results, clear/NPO for past 2 days Intervention/Recommendation Comments 1. Advance diet back to pureed per GI and as tolerated. 2. Calorie count averaged 1108kcal and 75g protein per day on days pt received pureed diet, meeting 78% of lower end kcal and 100% prot needs. Please see detailed calorie count results under notes. Expected Outcomes/Goals Expected Outcomes/Goals 1. Resume PO intake, pt to meet at least 75% of estimated nutritional needs.
[2016-12-04] MEDS: Ferrous Sulfate 325 MG TAB PO SCH ×2 (09:24→17:44)
[2016-12-04] MEDS: Ascorbic Acid/Vit B Complex Tab PO SCH (09:24)
[2016-12-04] MEDS: Multivitamin Tab PO SCH (09:25)
--- NOTE | 2016-12-04 15:25 | General Progress Note ---
Subjective - Review of Systems Service Date: 12/04/16 Subjective: awake, hungry Objective - Results Result Diagrams: 12/03/16 07:00 12/04/16 07:00 Recent Labs: Laboratory Last Values WBC 5.7 Th/cmm (4.8-10.8) 12/03/16 07:00 RBC 3.96 Mil/cmm (3.80-5.20) 12/03/16 07:00 Hgb 12.2 gm/dL (11.7-16.1) 12/03/16 07:00 Hct 35.6 % (35.0-45.0) 12/03/16 07:00 MCV 90.0 fl (81-100) 12/03/16 07:00 MCH 30.9 pg (27.0-31.0) 12/03/16 07:00 MCHC Differential 34.4 pg (28.0-36.0) 12/03/16 07:00 RDW 15.8 % (11.5-20.0) 12/03/16 07:00 Plt Count 86 Th/cmm (150-400) L 12/03/16 07:00 MPV 7.4 fl 12/03/16 07:00 Neutrophils % 59.1 % (40.0-80.0) 12/03/16 07:00 Band Neutrophils % 5 % (0-10) 12/01/16 06:35 Lymphocytes % 31.8 % (20.0-50.0) 12/03/16 07:00 Monocytes % 8.4 % (2.0-10.0) 12/03/16 07:00 Eosinophils % 0.4 % (0.0-5.0) 12/03/16 07:00 Basophils % 0.3 % (0.0-2.0) 12/03/16 07:00 Neutrophils (Manual) 44 % (40-80) 12/01/16 06:35 Lymphocytes 47 % (20-50) 12/01/16 06:35 Monocytes 4 % (2-10) 12/01/16 06:35 Platelet Estimate DECREASED PLATELETS (NORMAL) 12/01/16 06:35 Platelet Morphology GIANT PLATELETS SEEN (NORMAL) 12/01/16 06:35 Anisocytosis 1+ 12/01/16 06:35 RBC Morph Micro Appear ABNORMAL (NORMAL) 12/01/16 06:35 Total Retics Counted 2.2 % (0.5-1.5) H 12/01/16 10:38 Absolute Retic 46.4 Th/cmm 12/01/16 10:38 Corrected Retic Count 1.0 % (0.5-1.5) 12/01/16 10:38 Eos Smear Source URINE 11/30/16 16:40 Eos Smear Total Cells MODERATE EOS. SEEN (NONE SEEN) 11/30/16 16:40 Haptoglobin 163 mg/dL (34-200) 12/01/16 10:38 PT 11.2 SECONDS (9.5-11.5) 12/03/16 07:00 INR 1.08 (0.5-1.4) 12/03/16 07:00 PTT (Actin FS) 28.0 SECONDS (26.0-38.0) 11/28/16 21:14 Sodium 134 mEq/L (136-145) L 12/04/16 07:00 Potassium 3.1 mEq/L (3.5-5.1) L 12/04/16 07:00 Chloride 104 mEq/L (98-107) 12/04/16 07:00 Carbon Dioxide 20.1 mEq/L (21.0-31.0) L 12/04/16 07:00 Anion Gap 13.0 (7.0-16.0) 12/04/16 07:00 BUN 16 mg/dL (7-25) 12/04/16 07:00 Creatinine 0.9 mg/dL (0.6-1.2) 12/04/16 07:00 Est GFR ( Amer) TNP 12/04/16 07:00 Est GFR (Non-Af Amer) TNP 12/04/16 07:00 BUN/Creatinine Ratio 17.8 12/04/16 07:00 Glucose 62 mg/dL (70-105) L 12/04/16 07:00 Uric Acid 7.1 mg/dL (2.3-6.6) H 12/01/16 06:35 Calcium 8.8 mg/dL (8.6-10.3) 12/04/16 07:00 Phosphorus 2.8 mg/dL (2.5-5.0) 12/01/16 06:35 Magnesium 1.5 mg/dL (1.9-2.7) L 12/04/16 07:00 Iron 60 ug/dL (27-139) 12/01/16 10:38 TIBC 192 ug/dL (250-450) L 12/01/16 10:38 Iron Saturation 31 % (15-55) 12/01/16 10:38 Unsaturated IBC 132 ug/dL (118-369) 12/01/16 10:38 Ferritin 307 ng/mL (15-150) H 12/01/16 10:38 Total Bilirubin 0.2 mg/dL (0.3-1.0) L 12/01/16 06:35 AST 12 U/L (13-39) L 12/01/16 06:35 ALT < 3 U/L (7-52) L 12/01/16 06:35 Alkaline Phosphatase 33 U/L (34-104) L 12/01/16 06:35 Total Protein 5.9 gm/dL (6.0-8.3) L 12/01/16 06:35 Albumin 2.1 gm/dL (3.7-5.3) L 12/01/16 06:35 Globulin 3.8 gm/dL 12/01/16 06:35 Albumin/Globulin Ratio 0.6 (1.0-1.8) L 12/01/16 06:35 Vitamin B12 902 pg/mL (211-946) 12/01/16 10:38 Folic Acid >20.0 ng/mL (>3.0) 12/01/16 10:38 TSH 5.04 uIU/ml (0.34-5.60) 12/01/16 06:35 Urine Source CLEAN C 11/29/16 13:10 Urine Color YELLOW 11/29/16 13:10 Urine Clarity CLOUDY (CLEAR) H 11/29/16 13:10 Urine pH 5.5 11/29/16 13:10 Ur Specific [place] 1.020 (1.005-1.030) 11/29/16 13:10 Urine Protein 100 mg/dL (NEGATIVE) H 11/29/16 13:10 Urine Glucose (UA) NEGATIVE mg/dL (NEGATIVE) 11/29/16 13:10 Urine Ketones NEGATIVE mg/dL (NEGATIVE) 11/29/16 13:10 Urine Blood LARGE (NEGATIVE) H 11/29/16 13:10 Urine Nitrate NEGATIVE (NEGATIVE) 11/29/16 13:10 Urine Bilirubin NEGATIVE (NEGATIVE) 11/29/16 13:10 Urine Urobilinogen 0.2 E.U./dL (0.2 - 1.0) 11/29/16 13:10 Ur Leukocyte Esterase MODERATE (NEGATIVE) H 11/29/16 13:10 Urine RBC 25-50 /hpf (0-5) H 11/29/16 13:10 Urine WBC >100 /hpf (0-5) H 11/29/16 13:10 Ur Epithelial Cells FEW /lpf (FEW) 11/29/16 13:10 Urine Bacteria MANY /hpf (NONE SEEN) 11/29/16 13:10 Ur Random Sodium 59 mmol/L 11/30/16 16:40 Urine Creatinine 57.8 mg/dl (Not Estab.) 11/30/16 16:40 Urine Microalbumin 115.4 ug/mL (Not Estab.) 11/30/16 16:40 Microalb/Creat Ratio 199.7 mg/g creat (0.0-30.0) H 11/30/16 16:40 Stool Occult Blood NEGATIVE (NEGATIVE) 12/02/16 18:00 Valproic Acid 69.2 ug/mL (50.0-100.0) 11/28/16 21:14 Helicobacter pylori Ab NEGATIVE (NEGATIVE) 12/02/16 12:33 Blood Type B POSITIVE 12/01/16 09:50 Antibody Screen NEGATIVE 12/01/16 09:50 Crossmatch See Detail 12/01/16 09:50 - Physical Exam Vitals and I&O: Vital Signs Temp 98.2 F 12/04/16 12:00 Pulse 77 12/04/16 12:00 Resp 16 12/04/16 12:00 BP 135/84 12/04/16 12:00 Pulse Ox 97 12/04/16 11:16 Intake & Output 12/03/16 12/04/16 12/04/16 18:59 06:59 18:59 Intake Total 1050 5000 Balance 1050 5000 Intake: Intake, IV Amount 1050 1000 Sodium Chloride 0.45% 1, 1000 1000 000 ml @ 75 mls/hr IV . [id number] [facility] Rx#:[id number] cefTRIAXone 1 gm In 50 Dextrose 5% 50 ml @ 100 mls/hr IV Q24H [facility] Rx#: [id number] Tube Feeding 4000 Other: # Voids 5 # Bowel Movements 8 Stool Characteristics Liquid Active Medications: Current Medications Acetaminophen (Tylenol) 650 mg PO Q4H PRN PRN Reason: Pain Or Fever >100 Stop: 01/28/17 10:31 Acetaminophen/Hydrocodone Bitart ([place] 5mg/325mg) 1 tab PO Q4H PRN PRN Reason: mod to severe pain Stop: 01/28/17 10:31 Al Hydrox/Mg Hydrox/Simethicone (Maalox) 30 ml PO Q4H PRN PRN Reason: GI DISTRESS Stop: 01/28/17 10:31 Albuterol/Ipratropium (Duoneb Neb) 3 ml HHN Q6HRT PRN PRN Reason: sob/copd Stop: 01/28/17 10:31 Last Admin: 11/29/16 14:57 Dose: 3 ml Amlodipine Besylate (Norvasc) 10 mg PO DAILY [facility] Stop: 01/29/17 08:59 Last Admin: 12/04/16 09:24 Dose: Not Given Divalproex Sodium (Depakote Dr) 500 mg PO TID [facility] PRN Reason: Protocol Stop: 01/28/17 13:59 Last Admin: 12/04/16 13:36 Dose: Not Given Docusate Sodium (Colace) 250 mg PO DAILY [facility] Stop: 01/28/17 13:59 Last Admin: 12/04/16 09:24 Dose: Not Given Famotidine (Pepcid) 20 mg PO HS [facility] Stop: 01/28/17 20:59 Last Admin: 12/03/16 22:22 Dose: 20 mg Ferrous Sulfate (Iron) 325 mg PO BID [facility] Stop: 01/28/17 16:59 Last Admin: 12/04/16 09:24 Dose: Not Given Folic Acid (Folate) 1 mg PO DAILY [facility] Stop: 01/28/17 13:59 Last Admin: 12/04/16 09:24 Dose: Not Given Gabapentin (Neurontin) 100 mg PO TID [facility] Stop: 01/28/17 13:59 Last Admin: 12/04/16 13:37 Dose: Not Given Heparin Sodium (Porcine) (Heparin) 5,000 units SUBQ Q12HR [facility] Stop: 01/28/17 20:59 Last Admin: 12/04/16 09:24 Dose: 5,000 units Sodium Chloride (Nacl 0.45%) 1,000 mls @ 75 mls/hr IV .[id number] REN[facility] Stop: 01/29/17 14:29 Last Admin: 12/04/16 02:55 Dose: 75 mls/hr Ceftriaxone Sodium 1 gm/ (Dextrose) 50 mls @ 100 mls/hr IV Q24H [facility] Stop: 01/31/17 09:59 Last Admin: 12/04/16 09:23 Dose: 100 mls/hr Levothyroxine Sodium (Synthroid) 0.05 mg PO QDAC [facility] Stop: 01/29/17 07:29 Last Admin: 12/04/16 07:06 Dose: Not Given Losartan Potassium (Cozaar) 50 mg PO DAILY [facility] Stop: 01/28/17 13:59 Last Admin: 12/04/16 09:25 Dose: Not Given Megestrol Acetate (Megace) 400 mg PO BID [facility] Stop: 01/28/17 16:59 Last Admin: 12/04/16 09:25 Dose: Not Given Memantine (Namenda) 5 mg PO BID [facility] Stop: 01/28/17 16:59 Last Admin: 12/04/16 09:25 Dose: Not Given Multivitamins/Vitamin C (Theragran) 1 tab PO DAILY [facility] Stop: 01/28/17 13:59 Last Admin: 12/04/16 09:25 Dose: Not Given Ondansetron HCl (Zofran) 4 mg IVP Q6H PRN PRN Reason: nausea and vomiting Pantoprazole Sodium (Protonix) 40 mg IVP Q12HR [facility] Stop: 01/30/17 10:44 Last Admin: 12/04/16 09:23 Dose: 40 mg Quetiapine Fumarate (Seroquel) 50 mg PO BID [facility] PRN Reason: Protocol Stop: 01/28/17 16:59 Last Admin: 12/04/16 09:25 Dose: Not Given Sodium Bicarbonate (Sodium Bicarbonate) 650 mg PO BID [facility] PRN Reason: Protocol Stop: 02/01/17 16:59 Last Admin: 12/04/16 09:25 Dose: Not Given Vitamin B Complex/Vitamin C (Vitamin B Complex W/C) 1 tab PO DAILY [facility] Stop: 01/28/17 13:59 Last Admin: 12/04/16 09:24 Dose: Not Given General: Alert, No acute distress HEENT: Atraumatic, EOMI, Mucous membr. moist/pink Neck: Supple, +2 carotid pulse wo bruit Cardiovascular: Regular rate, Normal S1, Normal S2 Lungs: Clear to auscultation Abdomen: Soft Extremities: no Edema Neurological: Sensation intact Skin: no Rash Psych/Mental Status: Mood NL - Procedures Procedures: Procedures Procedure Code Date EGD BIOPSY SINGLE/MULTIPLE 01981 11/28/16 EXCISION OF DUODENUM, ENDO, DIAGN [id number] 11/28/16 EXCISION OF STOMACH, ENDO, DIAGN [id number] 11/28/16 Assessment/Plan - Problem List Patient Problems: All Active Problems Anemia (Acute) D64.9 Esophagitis (Acute) K20.9 Esophagitis (Acute) K20.9 Gastritis (Acute) K29.70 Gastritis (Acute) K29.70 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 - Assessment Assessment: SILVIA Anemia acute on CD Psychosis FTT PUD COPD hypothyroid Epilepsy Cx UTI Electrolyte Imbalance - Plan Plan: Lab - Result Diagrams 12/01/16 10:38 12/01/16 06:35 Current Medications Acetaminophen (Tylenol) 650 mg PO Q4H PRN PRN Reason: Pain Or Fever >100 Stop: 01/28/17 10:31 Acetaminophen/Hydrocodone Bitart ([place] 5mg/325mg) 1 tab PO Q4H PRN PRN Reason: mod to severe pain Stop: 01/28/17 10:31 Al Hydrox/Mg Hydrox/Simethicone (Maalox) 30 ml PO Q4H PRN PRN Reason: GI DISTRESS Stop: 01/28/17 10:31 Albuterol/Ipratropium (Duoneb Neb) 3 ml HHN Q6HRT PRN PRN Reason: sob/copd Stop: 01/28/17 10:31 Last Admin: 11/29/16 14:57 Dose: 3 ml Amlodipine Besylate (Norvasc) 10 mg PO DAILY [facility] Stop: 01/29/17 08:59 Last Admin: 12/01/16 09:12 Dose: Not Given Divalproex Sodium (Depakote Dr) 500 mg PO TID [facility] PRN Reason: Protocol Stop: 01/28/17 13:59 Last Admin: 12/01/16 09:08 Dose: 500 mg Docusate Sodium (Colace) 250 mg PO DAILY [facility] Stop: 01/28/17 13:59 Last Admin: 12/01/16 09:09 Dose: 250 mg Famotidine (Pepcid) 20 mg PO HS [facility] Stop: 01/28/17 20:59 Last Admin: 11/30/16 20:40 Dose: 20 mg Ferrous Sulfate (Iron) 325 mg PO BID [facility] Stop: 01/28/17 16:59 Last Admin: 12/01/16 09:09 Dose: 325 mg Folic Acid (Folate) 1 mg PO DAILY [facility] Stop: 01/28/17 13:59 Last Admin: 12/01/16 09:09 Dose: 1 mg Gabapentin (Neurontin) 100 mg PO TID [facility] Stop: 01/28/17 13:59 Last Admin: 12/01/16 09:09 Dose: 100 mg Heparin Sodium (Porcine) (Heparin) 5,000 units SUBQ Q12HR [facility] Stop: 01/28/17 20:59 Last Admin: 12/01/16 09:10 Dose: 5,000 units Sodium Chloride (Nacl 0.45%) 1,000 mls @ 75 mls/hr IV .[id number] [facility] Stop: 01/29/17 14:29 Last Admin: 12/01/16 04:39 Dose: 75 mls/hr Levofloxacin (Levaquin) 250 mg PO DAILY [facility] Stop: 01/30/17 08:59 Last Admin: 12/01/16 09:09 Dose: 250 mg Levothyroxine Sodium (Synthroid) 0.05 mg PO QDAC [facility] Stop: 01/29/17 07:29 Last Admin: 12/01/16 06:31 Dose: 0.05 mg Losartan Potassium (Cozaar) 50 mg PO DAILY [facility] Stop: 01/28/17 13:59 Last Admin: 12/01/16 09:10 Dose: 50 mg Megestrol Acetate (Megace) 400 mg PO BID [facility] Stop: 01/28/17 16:59 Last Admin: 12/01/16 09:10 Dose: 400 mg Memantine (Namenda) 5 mg PO BID [facility] Stop: 01/28/17 16:59 Last Admin: 12/01/16 09:10 Dose: 5 mg Multivitamins/Vitamin C (Theragran) 1 tab PO DAILY [facility] Stop: 01/28/17 13:59 Last Admin: 12/01/16 09:10 Dose: 1 tab Ondansetron HCl (Zofran) 4 mg IVP Q6H PRN PRN Reason: nausea and vomiting Pantoprazole Sodium (Protonix) 40 mg IVP Q12HR [facility] Stop: 01/30/17 10:44 Last Admin: 12/01/16 10:54 Dose: 40 mg Quetiapine Fumarate (Seroquel) 50 mg PO BID [facility] PRN Reason: Protocol Stop: 01/28/17 16:59 Last Admin: 12/01/16 09:10 Dose: 50 mg Vitamin B Complex/Vitamin C (Vitamin B Complex W/C) 1 tab PO DAILY [facility] Stop: 01/28/17 13:59 Last Admin: 12/01/16 09:11 Dose: 1 tab kidney fnc improving w/ BUN/CR of 16/0.9 continue ivf K & Mg replacement for transfusion today due to sudden drop in HGB/HCT, but no obvious bleed per EGD EGD, colonscopy results noted f/u electroytes Nutritional Asmnt/Malnutr-PDOC - Dietary Evaluation Malnutrition Findings (Please click <Entered> for more info): Nutritional Asmnt/Malnutrition Start: 12/03/16 12: 26 Text: Status: Complete Freq: Document 12/03/16 12:26 GSUN (Rec: 12/03/16 12:51 [facility] Nutritional Asmnt/Malnutrition Patient General Information Nutritional Screening High Risk Screening Diagnosis Acute aenmia, acute renal failure, failrue to thrive, severe malnutrition Pertinent Medical Hx/Surgical Hx Peptic ulcer disease, hypothyroidism, polyneuripathy , seizures, renal failure, nephritis, COPD, GI cleeding, metabolic encephalopathy, pancytopenia, depression, psychosis Subjective Information 71 year old female. Pt was agitated, yelling her knee hurts, then yelled at RD to leave the room, unable to interview. Pt with blanket up to neck, along with agitation, unable to complete physical assessment. Calorie count started on 11/30 for 3 days. Pt was on pureed diet for 4 meals, avg 1108kcal and 75g protein per day, meeting 78% of lower end kcal and 100% prot needs. Pt was on clear/ NPO on other days for EGD. EGD: gastritis, erosions and hiatal hernia, distal esophagitis. Unable to obtain CBW, bedscale on special setting. Current Diet Order/ Nutrition Support NPO Pertinent Medications Colace, Pepcid, Iron, Folate, Synthroid, Megace, Theragran, Zofran, Protnix, Seroquel, Vitamin C Comple w/ C Pertinent Labs 11/28: Potassium 6.1H, BUN 54H, creatinine 1.7H 12/03: potassium 3.2L (improved ), BUN 27H (improved), creatinine 0.9 (improved) Nutritional Hx/Data Height 1.57 m Height (Calculated Centimeters) 157.5 Current Weight (lbs) 47.174 kg Weight (Calculated Kilograms) 47.2 Weight (Calculated Grams) 74263.6 [place] Body Weight 110 Weight Status Approriate GI Symptoms Skin Integrity/Comment: Aaron Finch. hand mounter: R lateral ankle decubitus includes bone Estimated Nutritional Goals BEE in Kcals: Using Current wt Calories/Kcals/Kg CBW 47.2kg Kcals Calculated 1416-1652kcal (30-35kcal/kg, H &P: FTT, severe malnutrition) Protein: Using Current wt Protein Calculated 61-71g (1.2-1.5g/kg) Fluid: ml 1416-1652ml (1ml/kcal) Nutritional Problem 1. Problem Problem Altered GI functions related to Etiology gastritis, erosions and hiatal hernia, distal esophagitis aeb Signs/Symptoms: EGD results, clear/NPO for past 2 days Intervention/Recommendation Comments 1. Advance diet back to pureed per GI and as tolerated. 2. Calorie count averaged 1108kcal and 75g protein per day on days pt received pureed diet, meeting 78% of lower end kcal and 100% prot needs. Please see detailed calorie count results under notes. Expected Outcomes/Goals Expected Outcomes/Goals 1. Resume PO intake, pt to meet at least 75% of estimated nutritional needs.
[2016-12-04] MEDS ORDERED: Mag Sulfate 2gm/50mL Premix 2 GM/50 ML BAG IV ONE (16:00)
--- NOTE | 2016-12-04 17:44 | Operative Report ---
DATE OF SURGERY: 12/04/2016 PROCEDURE: Colonoscopy with polypectomy using a snare with cautery. INDICATION FOR PROCEDURE: GI bleed and anemia. CONSENT: Informed consent could not be obtained due to consensus among the treating physician that the patient's best interest of the procedure. _ ANESTHESIA USED: Propofol given by anesthesiologist. PREOPERATIVE DIAGNOSES: 1. Anemia. 2. Gastrointestinal bleed. POSTOPERATIVE DIAGNOSES: 1. Three colon polyps, 2 in the transverse colon and 1 in ascending colon , status post polypectomy using a snare with cautery. 2. Hemorrhoids. DESCRIPTION OF PROCEDURE: The patient was placed in left lateral position. Digital rectal examination showed internal hemorrhoid. An Olympus colonoscope was inserted through the anus and advanced throughout the colon to the cecum, which was identified by the ileocecal valve and appendiceal orifice. Scope was then withdrawn while examining the four quadrants of colonic mucosa and suctioning air from the colon. On the way in, 2 polyps were seen, one in the distal transverse and one in the ascending colon. They were both removed using snare polypectomy technique with cautery. The one in the transverse colon, even though it was bigger, it was lost because it flipped away and we could not see it. On the way out, another polyp was seen in the transverse colon, it was also removed using a snare with cautery. Scope was withdrawn further. No other lesion was seen throughout the colon till the anal canal was reached. Scope was retroflexed to examine the anal verge and it showed internal hemorrhoids. Scope was then straightened and withdrawn. The patient tolerated the procedure well. There were no immediate postoperative complications. RECOMMENDATIONS: 1. Follow up pathology report. 2. No aspirin or blood thinner for a week. 3. Repeat colonoscopy in 1 or 2 years depending on the pathology. Thank you, Dr. Dwyer, for allowing me to participate in the care of the patient. If you have any further questions, please let me know. JOB# [id number]
--- NOTE | 2016-12-04 23:57 | Infectious Disease Prog Note ---
Infectious Disease Subjective - Review of Systems Service Date: 12/04/16 Subjective: There is no new change. There is no fever. Infectious Disease Objective - Results Result Diagrams: 12/03/16 07:00 12/04/16 07:00 Recent Labs: Laboratory Last Values WBC 5.7 Th/cmm (4.8-10.8) 12/03/16 07:00 RBC 3.96 Mil/cmm (3.80-5.20) 12/03/16 07:00 Hgb 12.2 gm/dL (11.7-16.1) 12/03/16 07:00 Hct 35.6 % (35.0-45.0) 12/03/16 07:00 MCV 90.0 fl (81-100) 12/03/16 07:00 MCH 30.9 pg (27.0-31.0) 12/03/16 07:00 MCHC Differential 34.4 pg (28.0-36.0) 12/03/16 07:00 RDW 15.8 % (11.5-20.0) 12/03/16 07:00 Plt Count 86 Th/cmm (150-400) L 12/03/16 07:00 MPV 7.4 fl 12/03/16 07:00 Neutrophils % 59.1 % (40.0-80.0) 12/03/16 07:00 Band Neutrophils % 5 % (0-10) 12/01/16 06:35 Lymphocytes % 31.8 % (20.0-50.0) 12/03/16 07:00 Monocytes % 8.4 % (2.0-10.0) 12/03/16 07:00 Eosinophils % 0.4 % (0.0-5.0) 12/03/16 07:00 Basophils % 0.3 % (0.0-2.0) 12/03/16 07:00 Neutrophils (Manual) 44 % (40-80) 12/01/16 06:35 Lymphocytes 47 % (20-50) 12/01/16 06:35 Monocytes 4 % (2-10) 12/01/16 06:35 Platelet Estimate DECREASED PLATELETS (NORMAL) 12/01/16 06:35 Platelet Morphology GIANT PLATELETS SEEN (NORMAL) 12/01/16 06:35 Anisocytosis 1+ 12/01/16 06:35 RBC Morph Micro Appear ABNORMAL (NORMAL) 12/01/16 06:35 Total Retics Counted 2.2 % (0.5-1.5) H 12/01/16 10:38 Absolute Retic 46.4 Th/cmm 12/01/16 10:38 Corrected Retic Count 1.0 % (0.5-1.5) 12/01/16 10:38 Eos Smear Source URINE 11/30/16 16:40 Eos Smear Total Cells MODERATE EOS. SEEN (NONE SEEN) 11/30/16 16:40 Haptoglobin 163 mg/dL (34-200) 12/01/16 10:38 PT 11.2 SECONDS (9.5-11.5) 12/03/16 07:00 INR 1.08 (0.5-1.4) 12/03/16 07:00 PTT (Actin FS) 28.0 SECONDS (26.0-38.0) 11/28/16 21:14 Sodium 134 mEq/L (136-145) L 12/04/16 07:00 Potassium 3.1 mEq/L (3.5-5.1) L 12/04/16 07:00 Chloride 104 mEq/L (98-107) 12/04/16 07:00 Carbon Dioxide 20.1 mEq/L (21.0-31.0) L 12/04/16 07:00 Anion Gap 13.0 (7.0-16.0) 12/04/16 07:00 BUN 16 mg/dL (7-25) 12/04/16 07:00 Creatinine 0.9 mg/dL (0.6-1.2) 12/04/16 07:00 Est GFR ( Amer) TNP 12/04/16 07:00 Est GFR (Non-Af Amer) TNP 12/04/16 07:00 BUN/Creatinine Ratio 17.8 12/04/16 07:00 Glucose 62 mg/dL (70-105) L 12/04/16 07:00 Uric Acid 7.1 mg/dL (2.3-6.6) H 12/01/16 06:35 Calcium 8.8 mg/dL (8.6-10.3) 12/04/16 07:00 Phosphorus 2.8 mg/dL (2.5-5.0) 12/01/16 06:35 Magnesium 1.5 mg/dL (1.9-2.7) L 12/04/16 07:00 Iron 60 ug/dL (27-139) 12/01/16 10:38 TIBC 192 ug/dL (250-450) L 12/01/16 10:38 Iron Saturation 31 % (15-55) 12/01/16 10:38 Unsaturated IBC 132 ug/dL (118-369) 12/01/16 10:38 Ferritin 307 ng/mL (15-150) H 12/01/16 10:38 Total Bilirubin 0.2 mg/dL (0.3-1.0) L 12/01/16 06:35 AST 12 U/L (13-39) L 12/01/16 06:35 ALT < 3 U/L (7-52) L 12/01/16 06:35 Alkaline Phosphatase 33 U/L (34-104) L 12/01/16 06:35 Total Protein 5.9 gm/dL (6.0-8.3) L 12/01/16 06:35 Albumin 2.1 gm/dL (3.7-5.3) L 12/01/16 06:35 Globulin 3.8 gm/dL 12/01/16 06:35 Albumin/Globulin Ratio 0.6 (1.0-1.8) L 12/01/16 06:35 Vitamin B12 902 pg/mL (211-946) 12/01/16 10:38 Folic Acid >20.0 ng/mL (>3.0) 12/01/16 10:38 TSH 5.04 uIU/ml (0.34-5.60) 12/01/16 06:35 Urine Source CLEAN C 11/29/16 13:10 Urine Color YELLOW 11/29/16 13:10 Urine Clarity CLOUDY (CLEAR) H 11/29/16 13:10 Urine pH 5.5 11/29/16 13:10 Ur Specific [place] 1.020 (1.005-1.030) 11/29/16 13:10 Urine Protein 100 mg/dL (NEGATIVE) H 11/29/16 13:10 Urine Glucose (UA) NEGATIVE mg/dL (NEGATIVE) 11/29/16 13:10 Urine Ketones NEGATIVE mg/dL (NEGATIVE) 11/29/16 13:10 Urine Blood LARGE (NEGATIVE) H 11/29/16 13:10 Urine Nitrate NEGATIVE (NEGATIVE) 11/29/16 13:10 Urine Bilirubin NEGATIVE (NEGATIVE) 11/29/16 13:10 Urine Urobilinogen 0.2 E.U./dL (0.2 - 1.0) 11/29/16 13:10 Ur Leukocyte Esterase MODERATE (NEGATIVE) H 11/29/16 13:10 Urine RBC 25-50 /hpf (0-5) H 11/29/16 13:10 Urine WBC >100 /hpf (0-5) H 11/29/16 13:10 Ur Epithelial Cells FEW /lpf (FEW) 11/29/16 13:10 Urine Bacteria MANY /hpf (NONE SEEN) 11/29/16 13:10 Ur Random Sodium 59 mmol/L 11/30/16 16:40 Urine Creatinine 57.8 mg/dl (Not Estab.) 11/30/16 16:40 Urine Microalbumin 115.4 ug/mL (Not Estab.) 11/30/16 16:40 Microalb/Creat Ratio 199.7 mg/g creat (0.0-30.0) H 11/30/16 16:40 Stool Occult Blood NEGATIVE (NEGATIVE) 12/02/16 18:00 Valproic Acid 69.2 ug/mL (50.0-100.0) 11/28/16 21:14 Helicobacter pylori Ab NEGATIVE (NEGATIVE) 12/02/16 12:33 Blood Type B POSITIVE 12/01/16 09:50 Antibody Screen NEGATIVE 12/01/16 09:50 Crossmatch See Detail 12/01/16 09:50 - Physical Exam Vitals and I&O: Vital Signs Temp 96.5 F 12/04/16 20:00 Pulse 90 12/04/16 21:14 Resp 18 12/04/16 21:14 BP 102/69 12/04/16 20:00 Pulse Ox 96 12/04/16 21:14 Intake & Output 12/04/16 12/04/16 12/05/16 06:59 18:59 06:59 Intake Total 5000 Balance 5000 Intake: Intake, IV Amount 1000 Sodium Chloride 0.45% 1, 1000 000 ml @ 75 mls/hr IV . [id number] [facility] Rx#:[id number] Tube Feeding 4000 Other: # Voids 5 3 # Bowel Movements 8 1 Stool Characteristics Liquid Active Medications: Current Medications Acetaminophen (Tylenol) 650 mg PO Q4H PRN PRN Reason: Pain Or Fever >100 Stop: 01/28/17 10:31 Acetaminophen/Hydrocodone Bitart ([place] 5mg/325mg) 1 tab PO Q4H PRN PRN Reason: mod to severe pain Stop: 01/28/17 10:31 Last Admin: 12/04/16 22:15 Dose: 1 tab Al Hydrox/Mg Hydrox/Simethicone (Maalox) 30 ml PO Q4H PRN PRN Reason: GI DISTRESS Stop: 01/28/17 10:31 Albuterol/Ipratropium (Duoneb Neb) 3 ml HHN Q6HRT PRN PRN Reason: sob/copd Stop: 01/28/17 10:31 Last Admin: 11/29/16 14:57 Dose: 3 ml Amlodipine Besylate (Norvasc) 10 mg PO DAILY [facility] Stop: 01/29/17 08:59 Last Admin: 12/04/16 09:24 Dose: Not Given Divalproex Sodium (Depakote Dr) 500 mg PO TID [facility] PRN Reason: Protocol Stop: 01/28/17 13:59 Last Admin: 12/04/16 22:15 Dose: 500 mg Docusate Sodium (Colace) 250 mg PO DAILY [facility] Stop: 01/28/17 13:59 Last Admin: 12/04/16 09:24 Dose: Not Given Famotidine (Pepcid) 20 mg PO HS [facility] Stop: 01/28/17 20:59 Last Admin: 12/04/16 22:15 Dose: 20 mg Ferrous Sulfate (Iron) 325 mg PO BID [facility] Stop: 01/28/17 16:59 Last Admin: 12/04/16 17:44 Dose: 325 mg Folic Acid (Folate) 1 mg PO DAILY [facility] Stop: 01/28/17 13:59 Last Admin: 12/04/16 09:24 Dose: Not Given Gabapentin (Neurontin) 100 mg PO TID [facility] Stop: 01/28/17 13:59 Last Admin: 12/04/16 22:15 Dose: 100 mg Heparin Sodium (Porcine) (Heparin) 5,000 units SUBQ Q12HR [facility] Stop: 01/28/17 20:59 Last Admin: 12/04/16 22:15 Dose: 5,000 units Sodium Chloride (Nacl 0.45%) 1,000 mls @ 75 mls/hr IV .[id number] [facility] Stop: 01/29/17 14:29 Last Admin: 12/04/16 02:55 Dose: 75 mls/hr Ceftriaxone Sodium 1 gm/ (Dextrose) 50 mls @ 100 mls/hr IV Q24H [facility] Stop: 01/31/17 09:59 Last Admin: 12/04/16 09:23 Dose: 100 mls/hr Levothyroxine Sodium (Synthroid) 0.05 mg PO QDAC [facility] Stop: 01/29/17 07:29 Last Admin: 12/04/16 07:06 Dose: Not Given Losartan Potassium (Cozaar) 50 mg PO DAILY [facility] Stop: 01/28/17 13:59 Last Admin: 12/04/16 09:25 Dose: Not Given Magnesium Oxide (Mag-Oxide) 400 mg PO BID [facility] Stop: 02/03/17 08:59 Megestrol Acetate (Megace) 400 mg PO BID [facility] Stop: 01/28/17 16:59 Last Admin: 12/04/16 17:43 Dose: 400 mg Memantine (Namenda) 5 mg PO BID [facility] Stop: 01/28/17 16:59 Last Admin: 12/04/16 17:42 Dose: 5 mg Multivitamins/Vitamin C (Theragran) 1 tab PO DAILY [facility] Stop: 01/28/17 13:59 Last Admin: 12/04/16 09:25 Dose: Not Given Ondansetron HCl (Zofran) 4 mg IVP Q6H PRN PRN Reason: nausea and vomiting Pantoprazole Sodium (Protonix) 40 mg IVP Q12HR [facility] Stop: 01/30/17 10:44 Last Admin: 12/04/16 22:16 Dose: 40 mg Potassium Chloride (Klor-Con) 40 meq PO DAILY [facility] Stop: 02/03/17 08:59 Quetiapine Fumarate (Seroquel) 50 mg PO BID [facility] PRN Reason: Protocol Stop: 01/28/17 16:59 Last Admin: 12/04/16 17:42 Dose: 50 mg Sodium Bicarbonate (Sodium Bicarbonate) 650 mg PO BID [facility] PRN Reason: Protocol Stop: 02/01/17 16:59 Last Admin: 12/04/16 17:42 Dose: 650 mg Vitamin B Complex/Vitamin C (Vitamin B Complex W/C) 1 tab PO DAILY [facility] Stop: 01/28/17 13:59 Last Admin: 12/04/16 09:24 Dose: Not Given General: no acute distress, cachectic HEENT: atraumatic, normocephalic, PERRLA, EOMI Neck: supple Cardiovascular: S1S2, regular Lungs: clear to auscultation bilaterally, clear to percussion Abdomen: soft, no tender, no distended, no mass Extremities: no cyanosis, no clubbing, no edema Neurological: awake, alert Skin: intact - Procedures Procedures: Procedures Procedure Code Date EGD BIOPSY SINGLE/MULTIPLE 46702 11/28/16 EXCISION OF DUODENUM, ENDO, DIAGN [id number] 11/28/16 EXCISION OF STOMACH, ENDO, DIAGN [id number] 11/28/16 Infectious Disease Assmt/Plan - Problem List Patient Problems: All Active Problems Anemia (Acute) D64.9 Esophagitis (Acute) K20.9 Esophagitis (Acute) K20.9 Gastritis (Acute) K29.70 Gastritis (Acute) K29.70 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 UTI. E coli. 2. Psychosis. 3. Protein calorie malnutrition. 4. COPD. - Plan Plan: Change antibiotics to nitrofurantoin for 5 days. Ok to dc from ID point of view. Nutritional Asmnt/Malnutr-PDOC - Dietary Evaluation Malnutrition Findings (Please click <Entered> for more info): Nutritional Asmnt/Malnutrition Start: 12/03/16 12: 26 Text: Status: Complete Freq: Document 12/03/16 12:26 GSUN (Rec: 12/03/16 12:51 RIA [id number]) Nutritional Asmnt/Malnutrition Patient General Information Nutritional Screening High Risk Screening Diagnosis Acute aenmia, acute renal failure, failrue to thrive, severe malnutrition Pertinent Medical Hx/Surgical Hx Peptic ulcer disease, hypothyroidism, polyneuripathy , seizures, renal failure, nephritis, COPD, GI cleeding, metabolic encephalopathy, pancytopenia, depression, psychosis Subjective Information 71 year old female. Pt was agitated, yelling her knee hurts, then yelled at RD to leave the room, unable to interview. Pt with blanket up to neck, along with agitation, unable to complete physical assessment. Calorie count started on 11/30 for 3 days. Pt was on pureed diet for 4 meals, avg 1108kcal and 75g protein per day, meeting 78% of lower end kcal and 100% prot needs. Pt was on clear/ NPO on other days for EGD. EGD: gastritis, erosions and hiatal hernia, distal esophagitis. Unable to obtain CBW, bedscale on special setting. 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 Problem Problem Altered GI functions related to Etiology gastritis, erosions and hiatal hernia, distal esophagitis aeb Signs/Symptoms: EGD results, clear/NPO for past 2 days Intervention/Recommendation Comments 1. Advance diet back to pureed per GI and as tolerated. 2. Calorie count averaged 1108kcal and 75g protein per day on days pt received pureed diet, meeting 78% of lower end kcal and 100% prot needs. Please see detailed calorie count results under notes. Expected Outcomes/Goals Expected Outcomes/Goals 1. Resume PO intake, pt to meet at least 75% of estimated nutritional needs.
--- NOTE | 2016-12-05 08:22 | General Progress Note ---
Subjective - Review of Systems Events since last encounter: no distress Subjective: pt is weak c/o no pain urine e coli pt had egd shoes gastrtitis and esophagitis hb is 12 now Objective - Results Result Diagrams: 12/03/16 07:00 12/04/16 07:00 Recent Labs: Laboratory Last Values WBC 5.7 Th/cmm (4.8-10.8) 12/03/16 07:00 RBC 3.96 Mil/cmm (3.80-5.20) 12/03/16 07:00 Hgb 12.2 gm/dL (11.7-16.1) 12/03/16 07:00 Hct 35.6 % (35.0-45.0) 12/03/16 07:00 MCV 90.0 fl (81-100) 12/03/16 07:00 MCH 30.9 pg (27.0-31.0) 12/03/16 07:00 MCHC Differential 34.4 pg (28.0-36.0) 12/03/16 07:00 RDW 15.8 % (11.5-20.0) 12/03/16 07:00 Plt Count 86 Th/cmm (150-400) L 12/03/16 07:00 MPV 7.4 fl 12/03/16 07:00 Neutrophils % 59.1 % (40.0-80.0) 12/03/16 07:00 Band Neutrophils % 5 % (0-10) 12/01/16 06:35 Lymphocytes % 31.8 % (20.0-50.0) 12/03/16 07:00 Monocytes % 8.4 % (2.0-10.0) 12/03/16 07:00 Eosinophils % 0.4 % (0.0-5.0) 12/03/16 07:00 Basophils % 0.3 % (0.0-2.0) 12/03/16 07:00 Neutrophils (Manual) 44 % (40-80) 12/01/16 06:35 Lymphocytes 47 % (20-50) 12/01/16 06:35 Monocytes 4 % (2-10) 12/01/16 06:35 Platelet Estimate DECREASED PLATELETS (NORMAL) 12/01/16 06:35 Platelet Morphology GIANT PLATELETS SEEN (NORMAL) 12/01/16 06:35 Anisocytosis 1+ 12/01/16 06:35 RBC Morph Micro Appear ABNORMAL (NORMAL) 12/01/16 06:35 Total Retics Counted 2.2 % (0.5-1.5) H 12/01/16 10:38 Absolute Retic 46.4 Th/cmm 12/01/16 10:38 Corrected Retic Count 1.0 % (0.5-1.5) 12/01/16 10:38 Eos Smear Source URINE 11/30/16 16:40 Eos Smear Total Cells MODERATE EOS. SEEN (NONE SEEN) 11/30/16 16:40 Haptoglobin 163 mg/dL (34-200) 12/01/16 10:38 PT 11.2 SECONDS (9.5-11.5) 12/03/16 07:00 INR 1.08 (0.5-1.4) 12/03/16 07:00 PTT (Actin FS) 28.0 SECONDS (26.0-38.0) 11/28/16 21:14 Sodium 134 mEq/L (136-145) L 12/04/16 07:00 Potassium 3.1 mEq/L (3.5-5.1) L 12/04/16 07:00 Chloride 104 mEq/L (98-107) 12/04/16 07:00 Carbon Dioxide 20.1 mEq/L (21.0-31.0) L 12/04/16 07:00 Anion Gap 13.0 (7.0-16.0) 12/04/16 07:00 BUN 16 mg/dL (7-25) 12/04/16 07:00 Creatinine 0.9 mg/dL (0.6-1.2) 12/04/16 07:00 Est GFR ( Amer) TNP 12/04/16 07:00 Est GFR (Non-Af Amer) TNP 12/04/16 07:00 BUN/Creatinine Ratio 17.8 12/04/16 07:00 Glucose 62 mg/dL (70-105) L 12/04/16 07:00 Uric Acid 7.1 mg/dL (2.3-6.6) H 12/01/16 06:35 Calcium 8.8 mg/dL (8.6-10.3) 12/04/16 07:00 Phosphorus 2.8 mg/dL (2.5-5.0) 12/01/16 06:35 Magnesium 1.5 mg/dL (1.9-2.7) L 12/04/16 07:00 Iron 60 ug/dL (27-139) 12/01/16 10:38 TIBC 192 ug/dL (250-450) L 12/01/16 10:38 Iron Saturation 31 % (15-55) 12/01/16 10:38 Unsaturated IBC 132 ug/dL (118-369) 12/01/16 10:38 Ferritin 307 ng/mL (15-150) H 12/01/16 10:38 Total Bilirubin 0.2 mg/dL (0.3-1.0) L 12/01/16 06:35 AST 12 U/L (13-39) L 12/01/16 06:35 ALT < 3 U/L (7-52) L 12/01/16 06:35 Alkaline Phosphatase 33 U/L (34-104) L 12/01/16 06:35 Total Protein 5.9 gm/dL (6.0-8.3) L 12/01/16 06:35 Albumin 2.1 gm/dL (3.7-5.3) L 12/01/16 06:35 Globulin 3.8 gm/dL 12/01/16 06:35 Albumin/Globulin Ratio 0.6 (1.0-1.8) L 12/01/16 06:35 Vitamin B12 902 pg/mL (211-946) 12/01/16 10:38 Folic Acid >20.0 ng/mL (>3.0) 12/01/16 10:38 TSH 5.04 uIU/ml (0.34-5.60) 12/01/16 06:35 Urine Source CLEAN C 11/29/16 13:10 Urine Color YELLOW 11/29/16 13:10 Urine Clarity CLOUDY (CLEAR) H 11/29/16 13:10 Urine pH 5.5 11/29/16 13:10 Ur Specific [place] 1.020 (1.005-1.030) 11/29/16 13:10 Urine Protein 100 mg/dL (NEGATIVE) H 11/29/16 13:10 Urine Glucose (UA) NEGATIVE mg/dL (NEGATIVE) 11/29/16 13:10 Urine Ketones NEGATIVE mg/dL (NEGATIVE) 11/29/16 13:10 Urine Blood LARGE (NEGATIVE) H 11/29/16 13:10 Urine Nitrate NEGATIVE (NEGATIVE) 11/29/16 13:10 Urine Bilirubin NEGATIVE (NEGATIVE) 11/29/16 13:10 Urine Urobilinogen 0.2 E.U./dL (0.2 - 1.0) 11/29/16 13:10 Ur Leukocyte Esterase MODERATE (NEGATIVE) H 11/29/16 13:10 Urine RBC 25-50 /hpf (0-5) H 11/29/16 13:10 Urine WBC >100 /hpf (0-5) H 11/29/16 13:10 Ur Epithelial Cells FEW /lpf (FEW) 11/29/16 13:10 Urine Bacteria MANY /hpf (NONE SEEN) 11/29/16 13:10 Ur Random Sodium 59 mmol/L 11/30/16 16:40 Urine Creatinine 57.8 mg/dl (Not Estab.) 11/30/16 16:40 Urine Microalbumin 115.4 ug/mL (Not Estab.) 11/30/16 16:40 Microalb/Creat Ratio 199.7 mg/g creat (0.0-30.0) H 11/30/16 16:40 Stool Occult Blood NEGATIVE (NEGATIVE) 12/02/16 18:00 Valproic Acid 69.2 ug/mL (50.0-100.0) 11/28/16 21:14 Helicobacter pylori Ab NEGATIVE (NEGATIVE) 12/02/16 12:33 Blood Type B POSITIVE 12/01/16 09:50 Antibody Screen NEGATIVE 12/01/16 09:50 Crossmatch See Detail 12/01/16 09:50 - Physical Exam Vitals and I&O: Vital Signs Temp 96.4 F 12/05/16 04:33 Pulse 71 12/05/16 04:33 Resp 18 12/05/16 04:33 BP 161/79 12/05/16 04:33 Pulse Ox 96 12/05/16 04:33 Intake & Output 12/04/16 12/05/16 12/05/16 18:59 06:59 18:59 Intake Total 100 Balance 100 Intake: Oral 100 Other: # Voids 3 # Bowel Movements 1 Stool Characteristics Liquid Active Medications: Current Medications Acetaminophen (Tylenol) 650 mg PO Q4H PRN PRN Reason: Pain Or Fever >100 Stop: 01/28/17 10:31 Acetaminophen/Hydrocodone Bitart ([place] 5mg/325mg) 1 tab PO Q4H PRN PRN Reason: mod to severe pain Stop: 01/28/17 10:31 Al Hydrox/Mg Hydrox/Simethicone (Maalox) 30 ml PO Q4H PRN PRN Reason: GI DISTRESS Stop: 01/28/17 10:31 Albuterol/Ipratropium (Duoneb Neb) 3 ml HHN Q6HRT PRN PRN Reason: sob/copd Stop: 01/28/17 10:31 Last Admin: 11/29/16 14:57 Dose: 3 ml Amlodipine Besylate (Norvasc) 10 mg PO DAILY [facility] Stop: 01/29/17 08:59 Last Admin: 12/04/16 09:24 Dose: Not Given Divalproex Sodium (Depakote Dr) 500 mg PO TID [facility] PRN Reason: Protocol Stop: 01/28/17 13:59 Last Admin: 12/04/16 22:00 Dose: Not Given Docusate Sodium (Colace) 250 mg PO DAILY [facility] Stop: 01/28/17 13:59 Last Admin: 12/04/16 09:24 Dose: Not Given Famotidine (Pepcid) 20 mg PO HS [facility] Stop: 01/28/17 20:59 Last Admin: 12/04/16 22:00 Dose: Not Given Ferrous Sulfate (Iron) 325 mg PO BID [facility] Stop: 01/28/17 16:59 Last Admin: 12/04/16 17:44 Dose: 325 mg Folic Acid (Folate) 1 mg PO DAILY [facility] Stop: 01/28/17 13:59 Last Admin: 12/04/16 09:24 Dose: Not Given Gabapentin (Neurontin) 100 mg PO TID [facility] Stop: 01/28/17 13:59 Last Admin: 12/04/16 22:00 Dose: Not Given Heparin Sodium (Porcine) (Heparin) 5,000 units SUBQ Q12HR [facility] Stop: 01/28/17 20:59 Last Admin: 12/04/16 22:00 Dose: Not Given Sodium Chloride (Nacl 0.45%) 1,000 mls @ 75 mls/hr IV .[id number] [facility] Stop: 01/29/17 14:29 Last Admin: 12/04/16 02:55 Dose: 75 mls/hr Ceftriaxone Sodium 1 gm/ (Dextrose) 50 mls @ 100 mls/hr IV Q24H [facility] Stop: 01/31/17 09:59 Last Admin: 12/04/16 09:23 Dose: 100 mls/hr Levothyroxine Sodium (Synthroid) 0.05 mg PO QDAC [facility] Stop: 01/29/17 07:29 Last Admin: 12/04/16 07:06 Dose: Not Given Losartan Potassium (Cozaar) 50 mg PO DAILY [facility] Stop: 01/28/17 13:59 Last Admin: 12/04/16 09:25 Dose: Not Given Magnesium Oxide (Mag-Oxide) 400 mg PO BID [facility] Stop: 02/03/17 08:59 Megestrol Acetate (Megace) 400 mg PO BID [facility] Stop: 01/28/17 16:59 Last Admin: 12/04/16 17:43 Dose: 400 mg Memantine (Namenda) 5 mg PO BID [facility] Stop: 01/28/17 16:59 Last Admin: 12/04/16 17:42 Dose: 5 mg Multivitamins/Vitamin C (Theragran) 1 tab PO DAILY [facility] Stop: 01/28/17 13:59 Last Admin: 12/04/16 09:25 Dose: Not Given Ondansetron HCl (Zofran) 4 mg IVP Q6H PRN PRN Reason: nausea and vomiting Pantoprazole Sodium (Protonix) 40 mg IVP Q12HR [facility] Stop: 01/30/17 10:44 Last Admin: 12/04/16 22:00 Dose: Not Given Potassium Chloride (Klor-Con) 40 meq PO DAILY [facility] Stop: 02/03/17 08:59 Quetiapine Fumarate (Seroquel) 50 mg PO BID [facility] PRN Reason: Protocol Stop: 01/28/17 16:59 Last Admin: 12/04/16 17:42 Dose: 50 mg Sodium Bicarbonate (Sodium Bicarbonate) 650 mg PO BID [facility] PRN Reason: Protocol Stop: 02/01/17 16:59 Last Admin: 12/04/16 17:42 Dose: 650 mg Vitamin B Complex/Vitamin C (Vitamin B Complex W/C) 1 tab PO DAILY RENZO Stop: 01/28/17 13:59 Last Admin: 12/04/16 09:24 Dose: Not Given - Procedures Procedures: Procedures Procedure Code Date EGD BIOPSY SINGLE/MULTIPLE 95000 11/28/16 EXCISION OF DUODENUM, ENDO, DIAGN [id number] 11/28/16 EXCISION OF STOMACH, ENDO, DIAGN [id number] 11/28/16 Assessment/Plan - Problem List Patient Problems: All Active Problems Anemia (Acute) D64.9 Esophagitis (Acute) K20.9 Esophagitis (Acute) K20.9 Gastritis (Acute) K29.70 Gastritis (Acute) K29.70 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 Nutritional Asmnt/Malnutr-PDOC - Dietary Evaluation Malnutrition Findings (Please click <Entered> for more info): Nutritional Asmnt/Malnutrition Start: 12/03/16 12: 26 Text: Status: Complete Freq: Document 12/03/16 12:26 GSUN (Rec: 12/03/16 12:51 GSUN [email or web address]) Nutritional Asmnt/Malnutrition Patient General Information Nutritional Screening High Risk Screening Diagnosis Acute aenmia, acute renal failure, failrue to thrive, severe malnutrition Pertinent Medical Hx/Surgical Hx Peptic ulcer disease, hypothyroidism, polyneuripathy , seizures, renal failure, nephritis, COPD, GI cleeding, metabolic encephalopathy, pancytopenia, depression, psychosis Subjective Information 71 year old female. Pt was agitated, yelling her knee hurts, then yelled at RD to leave the room, unable to interview. Pt with blanket up to neck, along with agitation, unable to complete physical assessment. Calorie count started on 11/30 for 3 days. Pt was on pureed diet for 4 meals, avg 1108kcal and 75g protein per day, meeting 78% of lower end kcal and 100% prot needs. Pt was on clear/ NPO on other days for EGD. EGD: gastritis, erosions and hiatal hernia, distal esophagitis. Unable to obtain CBW, bedscale on special setting. Current Diet Order/ Nutrition Support NPO Pertinent Medications Colace, Pepcid, Iron, Folate, Synthroid, Megace, Theragran, Zofran, Protnix, Seroquel, Vitamin C Comple w/ C Pertinent Labs 11/28: Potassium 6.1H, BUN 54H, creatinine 1.7H 12/03: potassium 3.2L (improved ), BUN 27H (improved), creatinine 0.9 (improved) Nutritional Hx/Data Height 1.57 m Height (Calculated Centimeters) 157.5 Current Weight (lbs) 47.174 kg Weight (Calculated Kilograms) 47.2 Weight (Calculated Grams) 62708.6 [place] Body Weight 110 Weight Status Approriate GI Symptoms Skin Integrity/Comment: Aaron 15. 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 Problem Problem Altered GI functions related to Etiology gastritis, erosions and hiatal hernia, distal esophagitis aeb Signs/Symptoms: EGD results, clear/NPO for past 2 days Intervention/Recommendation Comments 1. Advance diet back to pureed per GI and as tolerated. 2. Calorie count averaged 1108kcal and 75g protein per day on days pt received pureed diet, meeting 78% of lower end kcal and 100% prot needs. Please see detailed calorie count results under notes. Expected Outcomes/Goals Expected Outcomes/Goals 1. Resume PO intake, pt to meet at least 75% of estimated nutritional needs.
[2016-12-05] MEDS: Levothyroxine 0.05 Mg Tab PO SCH ×2 (08:33→08:40)
[2016-12-05] MEDS: Ferrous Sulfate 325 MG TAB PO SCH ×2 (08:39→17:00)
[2016-12-05] MEDS: Multivitamin Tab PO SCH (08:41)
[2016-12-05] MEDS ORDERED: Potassium Chloride 20 mEq ER Tab PO SCH (09:00)
[2016-12-05] MEDS: Ascorbic Acid/Vit B Complex Tab PO SCH (11:54)
[2016-12-05] MEDS ORDERED: Sodium Chloride 0.45% 1,000 ML IV ONE (13:35)
--- NOTE | 2016-12-05 14:41 | Infectious Disease Prog Note ---
Infectious Disease Subjective - Review of Systems Service Date: 12/05/16 Subjective: There is no new change. There is no fever. Infectious Disease Objective - Results Result Diagrams: 12/03/16 07:00 12/04/16 07:00 Recent Labs: Laboratory Last Values WBC 5.7 Th/cmm (4.8-10.8) 12/03/16 07:00 RBC 3.96 Mil/cmm (3.80-5.20) 12/03/16 07:00 Hgb 12.2 gm/dL (11.7-16.1) 12/03/16 07:00 Hct 35.6 % (35.0-45.0) 12/03/16 07:00 MCV 90.0 fl (81-100) 12/03/16 07:00 MCH 30.9 pg (27.0-31.0) 12/03/16 07:00 MCHC Differential 34.4 pg (28.0-36.0) 12/03/16 07:00 RDW 15.8 % (11.5-20.0) 12/03/16 07:00 Plt Count 86 Th/cmm (150-400) L 12/03/16 07:00 MPV 7.4 fl 12/03/16 07:00 Neutrophils % 59.1 % (40.0-80.0) 12/03/16 07:00 Band Neutrophils % 5 % (0-10) 12/01/16 06:35 Lymphocytes % 31.8 % (20.0-50.0) 12/03/16 07:00 Monocytes % 8.4 % (2.0-10.0) 12/03/16 07:00 Eosinophils % 0.4 % (0.0-5.0) 12/03/16 07:00 Basophils % 0.3 % (0.0-2.0) 12/03/16 07:00 Neutrophils (Manual) 44 % (40-80) 12/01/16 06:35 Lymphocytes 47 % (20-50) 12/01/16 06:35 Monocytes 4 % (2-10) 12/01/16 06:35 Platelet Estimate DECREASED PLATELETS (NORMAL) 12/01/16 06:35 Platelet Morphology GIANT PLATELETS SEEN (NORMAL) 12/01/16 06:35 Anisocytosis 1+ 12/01/16 06:35 RBC Morph Micro Appear ABNORMAL (NORMAL) 12/01/16 06:35 Total Retics Counted 2.2 % (0.5-1.5) H 12/01/16 10:38 Absolute Retic 46.4 Th/cmm 12/01/16 10:38 Corrected Retic Count 1.0 % (0.5-1.5) 12/01/16 10:38 Eos Smear Source URINE 11/30/16 16:40 Eos Smear Total Cells MODERATE EOS. SEEN (NONE SEEN) 11/30/16 16:40 Haptoglobin 163 mg/dL (34-200) 12/01/16 10:38 PT 11.2 SECONDS (9.5-11.5) 12/03/16 07:00 INR 1.08 (0.5-1.4) 12/03/16 07:00 PTT (Actin FS) 28.0 SECONDS (26.0-38.0) 11/28/16 21:14 Sodium 134 mEq/L (136-145) L 12/04/16 07:00 Potassium 3.1 mEq/L (3.5-5.1) L 12/04/16 07:00 Chloride 104 mEq/L (98-107) 12/04/16 07:00 Carbon Dioxide 20.1 mEq/L (21.0-31.0) L 12/04/16 07:00 Anion Gap 13.0 (7.0-16.0) 12/04/16 07:00 BUN 16 mg/dL (7-25) 12/04/16 07:00 Creatinine 0.9 mg/dL (0.6-1.2) 12/04/16 07:00 Est GFR ( Amer) TNP 12/04/16 07:00 Est GFR (Non-Af Amer) TNP 12/04/16 07:00 BUN/Creatinine Ratio 17.8 12/04/16 07:00 Glucose 62 mg/dL (70-105) L 12/04/16 07:00 Uric Acid 7.1 mg/dL (2.3-6.6) H 12/01/16 06:35 Calcium 8.8 mg/dL (8.6-10.3) 12/04/16 07:00 Phosphorus 2.8 mg/dL (2.5-5.0) 12/01/16 06:35 Magnesium 1.5 mg/dL (1.9-2.7) L 12/04/16 07:00 Iron 60 ug/dL (27-139) 12/01/16 10:38 TIBC 192 ug/dL (250-450) L 12/01/16 10:38 Iron Saturation 31 % (15-55) 12/01/16 10:38 Unsaturated IBC 132 ug/dL (118-369) 12/01/16 10:38 Ferritin 307 ng/mL (15-150) H 12/01/16 10:38 Total Bilirubin 0.2 mg/dL (0.3-1.0) L 12/01/16 06:35 AST 12 U/L (13-39) L 12/01/16 06:35 ALT < 3 U/L (7-52) L 12/01/16 06:35 Alkaline Phosphatase 33 U/L (34-104) L 12/01/16 06:35 Total Protein 5.9 gm/dL (6.0-8.3) L 12/01/16 06:35 Albumin 2.1 gm/dL (3.7-5.3) L 12/01/16 06:35 Globulin 3.8 gm/dL 12/01/16 06:35 Albumin/Globulin Ratio 0.6 (1.0-1.8) L 12/01/16 06:35 Vitamin B12 902 pg/mL (211-946) 12/01/16 10:38 Folic Acid >20.0 ng/mL (>3.0) 12/01/16 10:38 TSH 5.04 uIU/ml (0.34-5.60) 12/01/16 06:35 Urine Source CLEAN C 11/29/16 13:10 Urine Color YELLOW 11/29/16 13:10 Urine Clarity CLOUDY (CLEAR) H 11/29/16 13:10 Urine pH 5.5 11/29/16 13:10 Ur Specific [place] 1.020 (1.005-1.030) 11/29/16 13:10 Urine Protein 100 mg/dL (NEGATIVE) H 11/29/16 13:10 Urine Glucose (UA) NEGATIVE mg/dL (NEGATIVE) 11/29/16 13:10 Urine Ketones NEGATIVE mg/dL (NEGATIVE) 11/29/16 13:10 Urine Blood LARGE (NEGATIVE) H 11/29/16 13:10 Urine Nitrate NEGATIVE (NEGATIVE) 11/29/16 13:10 Urine Bilirubin NEGATIVE (NEGATIVE) 11/29/16 13:10 Urine Urobilinogen 0.2 E.U./dL (0.2 - 1.0) 11/29/16 13:10 Ur Leukocyte Esterase MODERATE (NEGATIVE) H 11/29/16 13:10 Urine RBC 25-50 /hpf (0-5) H 11/29/16 13:10 Urine WBC >100 /hpf (0-5) H 11/29/16 13:10 Ur Epithelial Cells FEW /lpf (FEW) 11/29/16 13:10 Urine Bacteria MANY /hpf (NONE SEEN) 11/29/16 13:10 Ur Random Sodium 59 mmol/L 11/30/16 16:40 Urine Creatinine 57.8 mg/dl (Not Estab.) 11/30/16 16:40 Urine Microalbumin 115.4 ug/mL (Not Estab.) 11/30/16 16:40 Microalb/Creat Ratio 199.7 mg/g creat (0.0-30.0) H 11/30/16 16:40 Stool Occult Blood NEGATIVE (NEGATIVE) 12/02/16 18:00 Valproic Acid 69.2 ug/mL (50.0-100.0) 11/28/16 21:14 Helicobacter pylori Ab NEGATIVE (NEGATIVE) 12/02/16 12:33 Blood Type B POSITIVE 12/01/16 09:50 Antibody Screen NEGATIVE 12/01/16 09:50 Crossmatch See Detail 12/01/16 09:50 - Physical Exam Vitals and I&O: Vital Signs Temp 97.7 F 12/05/16 12:00 Pulse 86 12/05/16 13:30 Resp 20 12/05/16 13:30 BP 134/90 12/05/16 12:00 Pulse Ox 97 12/05/16 13:30 Intake & Output 12/04/16 12/05/16 12/05/16 18:59 06:59 18:59 Intake Total 100 Balance 100 Intake: Oral 100 Other: # Voids 3 # Bowel Movements 1 Stool Characteristics Liquid Active Medications: Current Medications Acetaminophen (Tylenol) 650 mg PO Q4H PRN PRN Reason: Pain Or Fever >100 Stop: 01/28/17 10:31 Acetaminophen/Hydrocodone Bitart ([place] 5mg/325mg) 1 tab PO Q4H PRN PRN Reason: mod to severe pain Stop: 01/28/17 10:31 Al Hydrox/Mg Hydrox/Simethicone (Maalox) 30 ml PO Q4H PRN PRN Reason: GI DISTRESS Stop: 01/28/17 10:31 Albuterol/Ipratropium (Duoneb Neb) 3 ml HHN Q6HRT PRN PRN Reason: sob/copd Stop: 01/28/17 10:31 Last Admin: 11/29/16 14:57 Dose: 3 ml Amlodipine Besylate (Norvasc) 10 mg PO DAILY [facility] Stop: 01/29/17 08:59 Last Admin: 12/05/16 08:39 Dose: 10 mg Divalproex Sodium (Depakote Dr) 500 mg PO TID RENZO PRN Reason: Protocol Stop: 01/28/17 13:59 Last Admin: 12/05/16 08:39 Dose: 500 mg Docusate Sodium (Colace) 250 mg PO DAILY [facility] Stop: 01/28/17 13:59 Last Admin: 12/05/16 08:39 Dose: 250 mg Famotidine (Pepcid) 20 mg PO HS [facility] Stop: 01/28/17 20:59 Last Admin: 12/04/16 22:00 Dose: Not Given Ferrous Sulfate (Iron) 325 mg PO BID RENZO Stop: 01/28/17 16:59 Last Admin: 12/05/16 08:39 Dose: 325 mg Folic Acid (Folate) 1 mg PO DAILY [facility] Stop: 01/28/17 13:59 Last Admin: 12/05/16 08:40 Dose: 1 mg Gabapentin (Neurontin) 100 mg PO TID RENZO Stop: 01/28/17 13:59 Last Admin: 12/05/16 08:39 Dose: 100 mg Heparin Sodium (Porcine) (Heparin) 5,000 units SUBQ Q12HR [facility]ENZO Stop: 01/28/17 20:59 Last Admin: 12/05/16 08:41 Dose: 5,000 units Sodium Chloride (Nacl 0.45%) 1,000 mls @ 75 mls/hr IV .[id number] [facility] Stop: 01/29/17 14:29 Last Admin: 12/04/16 02:55 Dose: 75 mls/hr Ceftriaxone Sodium 1 gm/ (Dextrose) 50 mls @ 100 mls/hr IV Q24H [facility]ENZO Stop: 01/31/17 09:59 Last Admin: 12/05/16 10:33 Dose: Not Given Levothyroxine Sodium (Synthroid) 0.05 mg PO QDAC RENZO Stop: 01/29/17 07:29 Last Admin: 12/05/16 08:40 Dose: 0.05 mg Losartan Potassium (Cozaar) 50 mg PO DAILY [facility] Stop: 01/28/17 13:59 Last Admin: 12/05/16 08:40 Dose: 50 mg Magnesium Oxide (Mag-Oxide) 400 mg PO BID RENZO Stop: 02/03/17 08:59 Last Admin: 12/05/16 08:38 Dose: 400 mg Megestrol Acetate (Megace) 400 mg PO BID RENZO Stop: 01/28/17 16:59 Last Admin: 12/05/16 08:38 Dose: 400 mg Memantine (Namenda) 5 mg PO BID RENZO Stop: 01/28/17 16:59 Last Admin: 12/05/16 08:41 Dose: 5 mg Multivitamins/Vitamin C (Theragran) 1 tab PO DAILY [facility]ENZO Stop: 01/28/17 13:59 Last Admin: 12/05/16 08:41 Dose: 1 tab Ondansetron HCl (Zofran) 4 mg IVP Q6H PRN PRN Reason: nausea and vomiting Pantoprazole Sodium (Protonix) 40 mg IVP Q12HR RENZO Stop: 01/30/17 10:44 Last Admin: 12/05/16 08:41 Dose: Not Given Potassium Chloride (Klor-Con) 40 meq PO DAILY [facility] Stop: 02/03/17 08:59 Last Admin: 12/05/16 08:40 Dose: 40 meq Quetiapine Fumarate (Seroquel) 50 mg PO BID RENZO PRN Reason: Protocol Stop: 01/28/17 16:59 Last Admin: 12/05/16 08:40 Dose: 50 mg Sodium Bicarbonate (Sodium Bicarbonate) 650 mg PO BID RENZO PRN Reason: Protocol Stop: 02/01/17 16:59 Last Admin: 12/05/16 08:41 Dose: 650 mg Vitamin B Complex/Vitamin C (Vitamin B Complex W/C) 1 tab PO DAILY RENZO Stop: 01/28/17 13:59 Last Admin: 12/05/16 11:54 Dose: Not Given General: no acute distress, cachectic HEENT: atraumatic, normocephalic, PERRLA, EOMI Neck: supple Cardiovascular: S1S2, regular Lungs: clear to auscultation bilaterally, clear to percussion Abdomen: soft, no tender, no distended Extremities: no cyanosis, no clubbing, no edema Neurological: awake, alert, oriented Skin: intact - Procedures Procedures: Procedures Procedure Code Date EGD BIOPSY SINGLE/MULTIPLE 35610 11/28/16 EXCISION OF DUODENUM, ENDO, DIAGN [id number] 11/28/16 EXCISION OF STOMACH, ENDO, DIAGN [id number] 11/28/16 Infectious Disease Assmt/Plan - Problem List Patient Problems: All Active Problems Anemia (Acute) D64.9 Esophagitis (Acute) K20.9 Esophagitis (Acute) K20.9 Gastritis (Acute) K29.70 Gastritis (Acute) K29.70 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 UTI. E coli. 2. Psychosis. 3. Protein calorie malnutrition. 4. COPD. - Plan Plan: Change antibiotics to nitrofurantoin for 4 days. Ok to dc from ID point of view. Nutritional Asmnt/Malnutr-PDOC - Dietary Evaluation Malnutrition Findings (Please click <Entered> for more info): Nutritional Asmnt/Malnutrition Start: 12/03/16 12: 26 Text: Status: Complete Freq: Document 12/03/16 12:26 GSUN (Rec: 12/03/16 12:51 GSUN [id number]) Nutritional Asmnt/Malnutrition Patient General Information Nutritional Screening High Risk Screening Diagnosis Acute aenmia, acute renal failure, failrue to thrive, severe malnutrition Pertinent Medical Hx/Surgical Hx Peptic ulcer disease, hypothyroidism, polyneuripathy , seizures, renal failure, nephritis, COPD, GI cleeding, metabolic encephalopathy, pancytopenia, depression, psychosis Subjective Information 71 year old female. Pt was agitated, yelling her knee hurts, then yelled at RD to leave the room, unable to interview. Pt with blanket up to neck, along with agitation, unable to complete physical assessment. Calorie count started on 11/30 for 3 days. Pt was on pureed diet for 4 meals, avg 1108kcal and 75g protein per day, meeting 78% of lower end kcal and 100% prot needs. Pt was on clear/ NPO on other days for EGD. EGD: gastritis, erosions and hiatal hernia, distal esophagitis. Unable to obtain CBW, bedscale on special setting. Current Diet Order/ Nutrition Support NPO Pertinent Medications Colace, Pepcid, Iron, Folate, Synthroid, Megace, Theragran, Zofran, Protnix, Seroquel, Vitamin C Comple w/ C Pertinent Labs 11/28: Potassium 6.1H, BUN 54H, creatinine 1.7H 12/03: potassium 3.2L (improved ), BUN 27H (improved), creatinine 0.9 (improved) Nutritional Hx/Data Height 1.57 m Height (Calculated Centimeters) 157.5 Current Weight (lbs) 47.174 kg Weight (Calculated Kilograms) 47.2 Weight (Calculated Grams) 99598.6 [place] Body Weight 110 Weight Status Approriate GI Symptoms Skin Integrity/Comment: Aaron Finch. pharmacy assistant: R lateral ankle decubitus includes bone Estimated Nutritional Goals BEE in Kcals: Using Current wt Calories/Kcals/Kg CBW 47.2kg Kcals Calculated 1416-1652kcal (30-35kcal/kg, H &P: FTT, severe malnutrition) Protein: Using Current wt Protein Calculated 61-71g (1.2-1.5g/kg) Fluid: ml 1416-1652ml (1ml/kcal) Nutritional Problem 1. Problem Problem Altered GI functions related to Etiology gastritis, erosions and hiatal hernia, distal esophagitis aeb Signs/Symptoms: EGD results, clear/NPO for past 2 days Intervention/Recommendation Comments 1. Advance diet back to pureed per GI and as tolerated. 2. Calorie count averaged 1108kcal and 75g protein per day on days pt received pureed diet, meeting 78% of lower end kcal and 100% prot needs. Please see detailed calorie count results under notes. Expected Outcomes/Goals Expected Outcomes/Goals 1. Resume PO intake, pt to meet at least 75% of estimated nutritional needs.
--- NOTE | 2016-12-05 14:51 | General Progress Note ---
Subjective - Review of Systems Service Date: 12/05/16 Subjective: awake, periods of agitation Objective - Results Result Diagrams: 12/03/16 07:00 12/04/16 07:00 Recent Labs: Laboratory Last Values WBC 5.7 Th/cmm (4.8-10.8) 12/03/16 07:00 RBC 3.96 Mil/cmm (3.80-5.20) 12/03/16 07:00 Hgb 12.2 gm/dL (11.7-16.1) 12/03/16 07:00 Hct 35.6 % (35.0-45.0) 12/03/16 07:00 MCV 90.0 fl (81-100) 12/03/16 07:00 MCH 30.9 pg (27.0-31.0) 12/03/16 07:00 MCHC Differential 34.4 pg (28.0-36.0) 12/03/16 07:00 RDW 15.8 % (11.5-20.0) 12/03/16 07:00 Plt Count 86 Th/cmm (150-400) L 12/03/16 07:00 MPV 7.4 fl 12/03/16 07:00 Neutrophils % 59.1 % (40.0-80.0) 12/03/16 07:00 Band Neutrophils % 5 % (0-10) 12/01/16 06:35 Lymphocytes % 31.8 % (20.0-50.0) 12/03/16 07:00 Monocytes % 8.4 % (2.0-10.0) 12/03/16 07:00 Eosinophils % 0.4 % (0.0-5.0) 12/03/16 07:00 Basophils % 0.3 % (0.0-2.0) 12/03/16 07:00 Neutrophils (Manual) 44 % (40-80) 12/01/16 06:35 Lymphocytes 47 % (20-50) 12/01/16 06:35 Monocytes 4 % (2-10) 12/01/16 06:35 Platelet Estimate DECREASED PLATELETS (NORMAL) 12/01/16 06:35 Platelet Morphology GIANT PLATELETS SEEN (NORMAL) 12/01/16 06:35 Anisocytosis 1+ 12/01/16 06:35 RBC Morph Micro Appear ABNORMAL (NORMAL) 12/01/16 06:35 Total Retics Counted 2.2 % (0.5-1.5) H 12/01/16 10:38 Absolute Retic 46.4 Th/cmm 12/01/16 10:38 Corrected Retic Count 1.0 % (0.5-1.5) 12/01/16 10:38 Eos Smear Source URINE 11/30/16 16:40 Eos Smear Total Cells MODERATE EOS. SEEN (NONE SEEN) 11/30/16 16:40 Haptoglobin 163 mg/dL (34-200) 12/01/16 10:38 PT 11.2 SECONDS (9.5-11.5) 12/03/16 07:00 INR 1.08 (0.5-1.4) 12/03/16 07:00 PTT (Actin FS) 28.0 SECONDS (26.0-38.0) 11/28/16 21:14 Sodium 134 mEq/L (136-145) L 12/04/16 07:00 Potassium 3.1 mEq/L (3.5-5.1) L 12/04/16 07:00 Chloride 104 mEq/L (98-107) 12/04/16 07:00 Carbon Dioxide 20.1 mEq/L (21.0-31.0) L 12/04/16 07:00 Anion Gap 13.0 (7.0-16.0) 12/04/16 07:00 BUN 16 mg/dL (7-25) 12/04/16 07:00 Creatinine 0.9 mg/dL (0.6-1.2) 12/04/16 07:00 Est GFR ( Amer) TNP 12/04/16 07:00 Est GFR (Non-Af Amer) TNP 12/04/16 07:00 BUN/Creatinine Ratio 17.8 12/04/16 07:00 Glucose 62 mg/dL (70-105) L 12/04/16 07:00 Uric Acid 7.1 mg/dL (2.3-6.6) H 12/01/16 06:35 Calcium 8.8 mg/dL (8.6-10.3) 12/04/16 07:00 Phosphorus 2.8 mg/dL (2.5-5.0) 12/01/16 06:35 Magnesium 1.5 mg/dL (1.9-2.7) L 12/04/16 07:00 Iron 60 ug/dL (27-139) 12/01/16 10:38 TIBC 192 ug/dL (250-450) L 12/01/16 10:38 Iron Saturation 31 % (15-55) 12/01/16 10:38 Unsaturated IBC 132 ug/dL (118-369) 12/01/16 10:38 Ferritin 307 ng/mL (15-150) H 12/01/16 10:38 Total Bilirubin 0.2 mg/dL (0.3-1.0) L 12/01/16 06:35 AST 12 U/L (13-39) L 12/01/16 06:35 ALT < 3 U/L (7-52) L 12/01/16 06:35 Alkaline Phosphatase 33 U/L (34-104) L 12/01/16 06:35 Total Protein 5.9 gm/dL (6.0-8.3) L 12/01/16 06:35 Albumin 2.1 gm/dL (3.7-5.3) L 12/01/16 06:35 Globulin 3.8 gm/dL 12/01/16 06:35 Albumin/Globulin Ratio 0.6 (1.0-1.8) L 12/01/16 06:35 Vitamin B12 902 pg/mL (211-946) 12/01/16 10:38 Folic Acid >20.0 ng/mL (>3.0) 12/01/16 10:38 TSH 5.04 uIU/ml (0.34-5.60) 12/01/16 06:35 Urine Source CLEAN C 11/29/16 13:10 Urine Color YELLOW 11/29/16 13:10 Urine Clarity CLOUDY (CLEAR) H 11/29/16 13:10 Urine pH 5.5 11/29/16 13:10 Ur Specific [place] 1.020 (1.005-1.030) 11/29/16 13:10 Urine Protein 100 mg/dL (NEGATIVE) H 11/29/16 13:10 Urine Glucose (UA) NEGATIVE mg/dL (NEGATIVE) 11/29/16 13:10 Urine Ketones NEGATIVE mg/dL (NEGATIVE) 11/29/16 13:10 Urine Blood LARGE (NEGATIVE) H 11/29/16 13:10 Urine Nitrate NEGATIVE (NEGATIVE) 11/29/16 13:10 Urine Bilirubin NEGATIVE (NEGATIVE) 11/29/16 13:10 Urine Urobilinogen 0.2 E.U./dL (0.2 - 1.0) 11/29/16 13:10 Ur Leukocyte Esterase MODERATE (NEGATIVE) H 11/29/16 13:10 Urine RBC 25-50 /hpf (0-5) H 11/29/16 13:10 Urine WBC >100 /hpf (0-5) H 11/29/16 13:10 Ur Epithelial Cells FEW /lpf (FEW) 11/29/16 13:10 Urine Bacteria MANY /hpf (NONE SEEN) 11/29/16 13:10 Ur Random Sodium 59 mmol/L 11/30/16 16:40 Urine Creatinine 57.8 mg/dl (Not Estab.) 11/30/16 16:40 Urine Microalbumin 115.4 ug/mL (Not Estab.) 11/30/16 16:40 Microalb/Creat Ratio 199.7 mg/g creat (0.0-30.0) H 11/30/16 16:40 Stool Occult Blood NEGATIVE (NEGATIVE) 12/02/16 18:00 Valproic Acid 69.2 ug/mL (50.0-100.0) 11/28/16 21:14 Helicobacter pylori Ab NEGATIVE (NEGATIVE) 12/02/16 12:33 Blood Type B POSITIVE 12/01/16 09:50 Antibody Screen NEGATIVE 12/01/16 09:50 Crossmatch See Detail 12/01/16 09:50 - Physical Exam Vitals and I&O: Vital Signs Temp 97.7 F 12/05/16 12:00 Pulse 86 12/05/16 13:30 Resp 20 12/05/16 13:30 BP 134/90 12/05/16 12:00 Pulse Ox 97 12/05/16 13:30 Intake & Output 12/04/16 12/05/16 12/05/16 18:59 06:59 18:59 Intake Total 100 Balance 100 Intake: Oral 100 Other: # Voids 3 # Bowel Movements 1 Stool Characteristics Liquid Active Medications: Current Medications Acetaminophen (Tylenol) 650 mg PO Q4H PRN PRN Reason: Pain Or Fever >100 Stop: 01/28/17 10:31 Acetaminophen/Hydrocodone Bitart ([place] 5mg/325mg) 1 tab PO Q4H PRN PRN Reason: mod to severe pain Stop: 01/28/17 10:31 Al Hydrox/Mg Hydrox/Simethicone (Maalox) 30 ml PO Q4H PRN PRN Reason: GI DISTRESS Stop: 01/28/17 10:31 Albuterol/Ipratropium (Duoneb Neb) 3 ml HHN Q6HRT PRN PRN Reason: sob/copd Stop: 01/28/17 10:31 Last Admin: 11/29/16 14:57 Dose: 3 ml Amlodipine Besylate (Norvasc) 10 mg PO DAILY RENZO Stop: 01/29/17 08:59 Last Admin: 12/05/16 08:39 Dose: 10 mg Divalproex Sodium (Depakote Dr) 500 mg PO TID RENZO PRN Reason: Protocol Stop: 01/28/17 13:59 Last Admin: 12/05/16 08:39 Dose: 500 mg Docusate Sodium (Colace) 250 mg PO DAILY RENZO Stop: 01/28/17 13:59 Last Admin: 12/05/16 08:39 Dose: 250 mg Famotidine (Pepcid) 20 mg PO HS RENZO Stop: 01/28/17 20:59 Last Admin: 12/04/16 22:00 Dose: Not Given Ferrous Sulfate (Iron) 325 mg PO BID RENZO Stop: 01/28/17 16:59 Last Admin: 12/05/16 08:39 Dose: 325 mg Folic Acid (Folate) 1 mg PO DAILY RENZO Stop: 01/28/17 13:59 Last Admin: 12/05/16 08:40 Dose: 1 mg Gabapentin (Neurontin) 100 mg PO TID RENZO Stop: 01/28/17 13:59 Last Admin: 12/05/16 08:39 Dose: 100 mg Heparin Sodium (Porcine) (Heparin) 5,000 units SUBQ Q12HR RENZO Stop: 01/28/17 20:59 Last Admin: 12/05/16 08:41 Dose: 5,000 units Sodium Chloride (Nacl 0.45%) 1,000 mls @ 75 mls/hr IV .[id number] RENZO Stop: 01/29/17 14:29 Last Admin: 12/04/16 02:55 Dose: 75 mls/hr Ceftriaxone Sodium 1 gm/ (Dextrose) 50 mls @ 100 mls/hr IV Q24H RENZO Stop: 01/31/17 09:59 Last Admin: 12/05/16 10:33 Dose: Not Given Levothyroxine Sodium (Synthroid) 0.05 mg PO QDAC RENZO Stop: 01/29/17 07:29 Last Admin: 12/05/16 08:40 Dose: 0.05 mg Losartan Potassium (Cozaar) 50 mg PO DAILY RENZO Stop: 01/28/17 13:59 Last Admin: 12/05/16 08:40 Dose: 50 mg Magnesium Oxide (Mag-Oxide) 400 mg PO BID RENZO Stop: 02/03/17 08:59 Last Admin: 12/05/16 08:38 Dose: 400 mg Megestrol Acetate (Megace) 400 mg PO BID RENZO Stop: 01/28/17 16:59 Last Admin: 12/05/16 08:38 Dose: 400 mg Memantine (Namenda) 5 mg PO BID RENZO Stop: 01/28/17 16:59 Last Admin: 12/05/16 08:41 Dose: 5 mg Multivitamins/Vitamin C (Theragran) 1 tab PO DAILY RENZO Stop: 01/28/17 13:59 Last Admin: 12/05/16 08:41 Dose: 1 tab Ondansetron HCl (Zofran) 4 mg IVP Q6H PRN PRN Reason: nausea and vomiting Pantoprazole Sodium (Protonix) 40 mg IVP Q12HR [facility] Stop: 01/30/17 10:44 Last Admin: 12/05/16 08:41 Dose: Not Given Potassium Chloride (Klor-Con) 40 meq PO DAILY RENZO Stop: 02/03/17 08:59 Last Admin: 12/05/16 08:40 Dose: 40 meq Quetiapine Fumarate (Seroquel) 50 mg PO BID RENZO PRN Reason: Protocol Stop: 01/28/17 16:59 Last Admin: 12/05/16 08:40 Dose: 50 mg Sodium Bicarbonate (Sodium Bicarbonate) 650 mg PO BID RENZO PRN Reason: Protocol Stop: 02/01/17 16:59 Last Admin: 12/05/16 08:41 Dose: 650 mg Vitamin B Complex/Vitamin C (Vitamin B Complex W/C) 1 tab PO DAILY RENZO Stop: 01/28/17 13:59 Last Admin: 12/05/16 11:54 Dose: Not Given General: Alert, No acute distress HEENT: Atraumatic, Mucous membr. moist/pink Neck: Supple, +2 carotid pulse wo bruit Cardiovascular: Regular rate, Normal S1, Normal S2 Lungs: Clear to auscultation Abdomen: Bowel sounds, Soft Extremities: no Edema Neurological: Sensation intact Skin: no Rash Psych/Mental Status: Other (some agittion) - Procedures Procedures: Procedures Procedure Code Date EGD BIOPSY SINGLE/MULTIPLE 55604 11/28/16 EXCISION OF DUODENUM, ENDO, DIAGN [id number] 11/28/16 EXCISION OF STOMACH, ENDO, DIAGN [id number] 11/28/16 Assessment/Plan - Problem List Patient Problems: All Active Problems Anemia (Acute) D64.9 Esophagitis (Acute) K20.9 Esophagitis (Acute) K20.9 Gastritis (Acute) K29.70 Gastritis (Acute) K29.70 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 - Assessment Assessment: SILVIA Anemia acute on CD Psychosis FTT PUD COPD hypothyroid Epilepsy Cx UTI Electrolyte Imbalance - Plan Plan: Lab - Result Diagrams 12/01/16 10:38 12/01/16 06:35 Current Medications Acetaminophen (Tylenol) 650 mg PO Q4H PRN PRN Reason: Pain Or Fever >100 Stop: 01/28/17 10:31 Acetaminophen/Hydrocodone Bitart ([place] 5mg/325mg) 1 tab PO Q4H PRN PRN Reason: mod to severe pain Stop: 01/28/17 10:31 Al Hydrox/Mg Hydrox/Simethicone (Maalox) 30 ml PO Q4H PRN PRN Reason: GI DISTRESS Stop: 01/28/17 10:31 Albuterol/Ipratropium (Duoneb Neb) 3 ml HHN Q6HRT PRN PRN Reason: sob/copd Stop: 01/28/17 10:31 Last Admin: 11/29/16 14:57 Dose: 3 ml Amlodipine Besylate (Norvasc) 10 mg PO DAILY RENZO Stop: 01/29/17 08:59 Last Admin: 12/01/16 09:12 Dose: Not Given Divalproex Sodium (Depakote Dr) 500 mg PO TID [facility] PRN Reason: Protocol Stop: 01/28/17 13:59 Last Admin: 12/01/16 09:08 Dose: 500 mg Docusate Sodium (Colace) 250 mg PO DAILY RENZO Stop: 01/28/17 13:59 Last Admin: 12/01/16 09:09 Dose: 250 mg Famotidine (Pepcid) 20 mg PO HS RENZO Stop: 01/28/17 20:59 Last Admin: 11/30/16 20:40 Dose: 20 mg Ferrous Sulfate (Iron) 325 mg PO BID RENZO Stop: 01/28/17 16:59 Last Admin: 12/01/16 09:09 Dose: 325 mg Folic Acid (Folate) 1 mg PO DAILY RENZO Stop: 01/28/17 13:59 Last Admin: 12/01/16 09:09 Dose: 1 mg Gabapentin (Neurontin) 100 mg PO TID RENZO Stop: 01/28/17 13:59 Last Admin: 12/01/16 09:09 Dose: 100 mg Heparin Sodium (Porcine) (Heparin) 5,000 units SUBQ Q12HR RENZO Stop: 01/28/17 20:59 Last Admin: 12/01/16 09:10 Dose: 5,000 units Sodium Chloride (Nacl 0.45%) 1,000 mls @ 75 mls/hr IV .[id number] RENZO Stop: 01/29/17 14:29 Last Admin: 12/01/16 04:39 Dose: 75 mls/hr Levofloxacin (Levaquin) 250 mg PO DAILY RENZO Stop: 01/30/17 08:59 Last Admin: 12/01/16 09:09 Dose: 250 mg Levothyroxine Sodium (Synthroid) 0.05 mg PO QDAC RENZO Stop: 01/29/17 07:29 Last Admin: 12/01/16 06:31 Dose: 0.05 mg Losartan Potassium (Cozaar) 50 mg PO DAILY RENZO Stop: 01/28/17 13:59 Last Admin: 12/01/16 09:10 Dose: 50 mg Megestrol Acetate (Megace) 400 mg PO BID RENZO Stop: 01/28/17 16:59 Last Admin: 12/01/16 09:10 Dose: 400 mg Memantine (Namenda) 5 mg PO BID RENZO Stop: 01/28/17 16:59 Last Admin: 12/01/16 09:10 Dose: 5 mg Multivitamins/Vitamin C (Theragran) 1 tab PO DAILY RENZO Stop: 01/28/17 13:59 Last Admin: 12/01/16 09:10 Dose: 1 tab Ondansetron HCl (Zofran) 4 mg IVP Q6H PRN PRN Reason: nausea and vomiting Pantoprazole Sodium (Protonix) 40 mg IVP Q12HR RENZO Stop: 01/30/17 10:44 Last Admin: 12/01/16 10:54 Dose: 40 mg Quetiapine Fumarate (Seroquel) 50 mg PO BID RENZO PRN Reason: Protocol Stop: 01/28/17 16:59 Last Admin: 12/01/16 09:10 Dose: 50 mg Vitamin B Complex/Vitamin C (Vitamin B Complex W/C) 1 tab PO DAILY [facility] Stop: 01/28/17 13:59 Last Admin: 12/01/16 09:11 Dose: 1 tab kidney fnc improving w/ BUN/CR of 16/0.9 continue ivf K & Mg replacement for transfusion today due to sudden drop in HGB/HCT, but no obvious bleed per EGD EGD, colonscopy results noted f/u electroytes Nutritional Asmnt/Malnutr-PDOC - Dietary Evaluation Malnutrition Findings (Please click <Entered> for more info): Nutritional Asmnt/Malnutrition Start: 12/03/16 12: 26 Text: Status: Complete Freq: Document 12/03/16 12:26 GSUN (Rec: 12/03/16 12:51 GSUN [place] [id number]) Nutritional Asmnt/Malnutrition Patient General Information Nutritional Screening High Risk Screening Diagnosis Acute aenmia, acute renal failure, failrue to thrive, severe malnutrition Pertinent Medical Hx/Surgical Hx Peptic ulcer disease, hypothyroidism, polyneuripathy , seizures, renal failure, nephritis, COPD, GI cleeding, metabolic encephalopathy, pancytopenia, depression, psychosis Subjective Information 71 year old female. Pt was agitated, yelling her knee hurts, then yelled at RD to leave the room, unable to interview. Pt with blanket up to neck, along with agitation, unable to complete physical assessment. Calorie count started on 11/30 for 3 days. Pt was on pureed diet for 4 meals, avg 1108kcal and 75g protein per day, meeting 78% of lower end kcal and 100% prot needs. Pt was on clear/ NPO on other days for EGD. EGD: gastritis, erosions and hiatal hernia, distal esophagitis. Unable to obtain CBW, bedscale on special setting. 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 Problem Problem Altered GI functions related to Etiology gastritis, erosions and hiatal hernia, distal esophagitis aeb Signs/Symptoms: EGD results, clear/NPO for past 2 days Intervention/Recommendation Comments 1. Advance diet back to pureed per GI and as tolerated. 2. Calorie count averaged 1108kcal and 75g protein per day on days pt received pureed diet, meeting 78% of lower end kcal and 100% prot needs. Please see detailed calorie count results under notes. Expected Outcomes/Goals Expected Outcomes/Goals 1. Resume PO intake, pt to meet at least 75% of estimated nutritional needs.
--- NOTE | 2016-12-06 10:56 | Pathology Report ---
[id number] Collection date: 12/04/2016 Surgeon: Dr. Sushila Bro Specimen Description: 1: Transverse colon biopsy 2: Hepatic flexure biopsy Gross Description: Part I: Received in formalin is a polypoid portion of salazar soft tissue measuring 0.5 cm in greatest dimension. Specimen is bisected and totally submitted in one cassette labeled A. Gross Description: Part II: Received in formalin is a single fragment of salazar soft tissue measuring 0.3 cm in greatest dimension. Totally submitted in one cassette labeled B. Microscopic Description: Part I: The histologic sections show a polypoid portion of colon mucosa with adenomatous glandular changes present consisting of nuclear enlargement and stratification. The adenomatous glands form mostly tubules consistent with tubular adenoma. Diagnosis: Part I: Benign adenomatous polyp consistent with tubular adenoma (transverse colon biopsy). Microscopic Description: Part II: The histologic sections show colon mucosa with adenomatous glandular changes present consisting of nuclear enlargement and stratification. The adenomatous glands show mostly tubules consistent with tubular adenoma. Diagnosis: Part II: Benign adenomatous polyp consistent with tubular adenoma (hepatic flexure biopsy). [facility]# [id number] [facility]
== END 2016-12-05 18:47 | DRG 682 ==
LOC: ER 16:38 → TELE 22:38
PROVIDERS: ADMIT Internal Medicine; ATTEND Internal Medicine
PROC: 30233N1 Transfusion of Nonautologous Red Blood Cells into Peripheral Vein, Percutaneous Approach (ICD-10-PCS; 2016-12-01)
PROC: 0DB98ZX Excision of Duodenum, Via Natural or Artificial Opening Endoscopic, Diagnostic (ICD-10-PCS; principal; 2016-12-02)
PROC: 0DB68ZX Excision of Stomach, Via Natural or Artificial Opening Endoscopic, Diagnostic (ICD-10-PCS; 2016-12-02)
PROC: 0DBL8ZZ Excision of Transverse Colon, Via Natural or Artificial Opening Endoscopic (ICD-10-PCS; 2016-12-04)
PROC: 0DBK8ZZ Excision of Ascending Colon, Via Natural or Artificial Opening Endoscopic (ICD-10-PCS; 2016-12-04)
DX: N17.9 Acute kidney failure, unspecified (principal); E43 Unspecified severe protein-calorie malnutrition; G93.41 Metabolic encephalopathy; E87.5 Hyperkalemia; N39.0 Urinary tract infection, site not specified; G30.9 Alzheimer's disease, unspecified; F02.81 Dementia in other diseases classified elsewhere, unspecified severity, with behavioral disturbance; G62.9 Polyneuropathy, unspecified; Z68.1 Body mass index [BMI] 19.9 or less, adult; N11.1 Chronic obstructive pyelonephritis; K29.70 Gastritis, unspecified, without bleeding; R62.7 Adult failure to thrive; F32.9 Major depressive disorder, single episode, unspecified; F29 Unspecified psychosis not due to a substance or known physiological condition; K27.9 Peptic ulcer, site unspecified, unspecified as acute or chronic, without hemorrhage or perforation; J44.9 Chronic obstructive pulmonary disease, unspecified; E03.9 Hypothyroidism, unspecified; G40.909 Epilepsy, unspecified, not intractable, without status epilepticus; I12.9 Hypertensive chronic kidney disease with stage 1 through stage 4 chronic kidney disease, or unspecified chronic kidney disease; N18.3 Chronic kidney disease, stage 3 (moderate); D63.1 Anemia in chronic kidney disease; F20.9 Schizophrenia, unspecified; K21.9 Gastro-esophageal reflux disease without esophagitis; K20.9 Esophagitis, unspecified; B96.20 Unspecified Escherichia coli [E. coli] as the cause of diseases classified elsewhere; K44.9 Diaphragmatic hernia without obstruction or gangrene
CPT/HCPCS: 36415-UA; 71010-TC; 74000-TC; 76770-TC; 80048-TC; 80053-TC; 80164-TC; 81001-TC; 81015-TC; 82043-90; 82270-TC; 82570-TC; 82607-90; 82728-90; 82746-90; 83010-90; 83540-90; 83550-90; 83735-TC; 84100-TC; 84300-TC; 84443-TC; 84550-TC; 85007-TC; 85025-TC; 85027-TC; 85044-TC; 85610-TC; 85730-TC; 86850-TC; 86900-TC; 86901-TC; 86922-TC; 87086-90; 87338-TC; 88305-90; 93005; 94640; 94760; C9113; J0696; J1644; J1956; J2185; J2250; J2704; J3480; J7030; P9016; X6206; X6258; Z7512; Z7610